=== PATIENT | female | born 1935 | race Caucasian/White ===

== ENCOUNTER → 2018-07-10 | Outpatient (CLI) | payer MEDICARE ==
--- NOTE | 2018-07-10 14:34 | XR ---
Lumbar spine HISTORY: Low back pain 3 views of the lumbar spine correlated prior lumbosacral spine 01/09/2014 There is no significant change. Lumbar vertebral bodies show stable height, alignment, bone mineraliz ation is reduced. Anterolisthesis grade 1 L4-5 again noted. There is loss of disc height at intervert ebral levels. Sclerosis present in the posterior elements. There is multilevel spondylosis. Apical sc arring vascular calcifications present in the aortoiliac distribution. Sclerosis present in the poste rior elements of the lower lumbar spine. IMPRESSION: Stable anterolisthesis L4-5. Degenerative disc disease, facet arthropathy. Osteopenia.
== END | disposition home or self-care (01) ==
LOC: RADXRMAIN 12:50
PROVIDERS: ATTEND Family Medicine
DX: M51.16 Intervertebral disc disorders with radiculopathy, lumbar region (principal); M43.16 Spondylolisthesis, lumbar region; M46.96 Unspecified inflammatory spondylopathy, lumbar region; M85.88 Other specified disorders of bone density and structure, other site
CPT/HCPCS: 72100

== ENCOUNTER → 2018-07-26 | Outpatient (CLI) | payer MEDICARE ==
--- NOTE | 2018-07-26 21:50 | MR ---
EXAMINATION TYPE: MR lumbar spine wo con DATE OF EXAM: 07/26/2018 COMPARISON: Plain films 07/10/2018 HISTORY: Radiculopathy CONTRAST: 0 mL intravenous Gadavist. TECHNIQUE: Multiplanar, multisequence images of the lumbar spine were acquired. FINDINGS: L5-S1: No significant disc bulge or disc herniation. No spinal canal stenosis. No foraminal stenosi s. . L4-L5: There is loss of disc height to this level. There is a grade 1 spondylolisthesis with L4 anter ior on L5. Facet hypertrophy is present. Marked ligamentum flavum laxity is present with posterior la teral thecal sac compression. This is contributing to spinal canal stenosis measuring 0.6 cm in AP di mension. There is moderate to severe left foraminal stenosis. Mild foraminal narrowing is present on the right. . L3-L4: Broad-based disc bulge is present which may has some subligamentous disc extension. Facet hype rtrophy and ligamentum flavum laxity is posterior lateral thecal sac compression. This is contributin g to spinal canal narrowing. L2-L3: No significant disc bulge or disc herniation. No spinal canal stenosis. No foraminal stenosi s. Mild facet hypertrophy is present with posterior lateral thecal sac contact.. L1-L2: Broad-based disc bulge is present with anterior thecal sac contact. Some subligamentous disc e xtension may be present. No spinal canal stenosis present. Mild right facet hypertrophy is present. T12-L1: Tiny central protrusion is present. Annular tear may be present with increased signal on T2-w eighted sequences within the disc space. No spinal canal stenosis cord contact or foraminal stenosis is present. T11-12: There is mild right paracentral disc bulge with anterior thecal sac contact. This has minimal anterior thecal sac compression. No cord contact or spinal canal stenosis is present. Neural foramen are patent. IMPRESSION: 1. Spinal canal stenosis L4-5 secondary to disc uncovering from a grade 1 spondylolisthesis and marke d ligamentum flavum laxity with facet hypertrophy. 2. Foraminal stenosis L3-4 secondary to disc bulging and marked ligamentum flavum laxity. 3. Moderate to severe left foraminal narrowing L4-5. 4. Broad-based disc bulging with subligamentous disc extension has mild sac compression L1-2. 5. Tiny annular tear and minimal central focal bulging T12-L1.
== END | disposition home or self-care (01) ==
LOC: RADMRIMAIN 07:02
PROVIDERS: ATTEND Midwife
DX: M99.73 Connective tissue and disc stenosis of intervertebral foramina of lumbar region (principal); M48.061 Spinal stenosis, lumbar region without neurogenic claudication; M51.26 Other intervertebral disc displacement, lumbar region; M43.16 Spondylolisthesis, lumbar region; M46.96 Unspecified inflammatory spondylopathy, lumbar region
CPT/HCPCS: 72148

== ENCOUNTER 2020-01-19 15:44 | Inpatient (IN) | payer MEDICARE ==
[2020-01-19] MEDS ORDERED: IPRATROPIUM-ALBUTEROL 3 ML NEB INHALATION STA (16:16)
[2020-01-19 16:46] LABS: Basophils % (A) 0 %; Eosinophils # (A) 0.1 k/uL (0-0.7); Eosinophils % (A) 1 %; HCT 45.7 % (34.0-46.0); HGB 15.2 gm/dL (11.4-16.0); Lymphocytes # (A) 1.4 k/uL (1.0-4.8); Lymphocytes % (A) 15 %; MCH 30.6 pg (25.0-35.0); MCHC 33.3 g/dL (31.0-37.0); MCV 91.7 fL (80.0-100.0); Mean Platelet Volume 7.6; Monocytes # (A) 0.4 k/uL (0-1.0); Monocytes % (A) 4 %; Neutrophils # (A) 7.6 k/uL (1.3-7.7); Neutrophils % (A) 78 %; Platelet Count 234 k/uL (150-450); RBC 4.98 m/uL (3.80-5.40); RDW 12.8 % (11.5-15.5); WBC 9.6 k/uL (3.8-10.6)
[2020-01-19 16:55] LABS: Albumin 4.3 g/dL (3.5-5.0); Magnesium 2.6 mg/dL (1.6-2.3); Potassium 3.8 mmol/L (3.5-5.1); Total Protein 7.8 g/dL (6.3-8.2)
[2020-01-19 17:06] LABS: Prothrombin Time 10.5 sec (9.0-12.0)
--- NOTE | 2020-01-19 17:15 | ED ---
SOB HPI - General Chief Complaint: Shortness of Breath Stated Complaint: Diff Breathing Time Seen by Provider: 01/19/20 15:50 Source: patient Mode of arrival: wheelchair Limitations: no limitations - History of Present Illness Initial Comments: The patient is an 84 old female with past medical history of asthma and PMR who presents to the emergency room from her primary care office. She saw Dr. Ralph in office last week for shortness of breath. States that she was prescribed some inhalers which she has been using however she continues to have shortness of breath. States it is worse with exertion and when she lays flat. Dr. Ralph did order an x-ray and she followed up with him today in office for results. Patient did not get to see the physician however when she arrived they referred her to the emergency room for further evaluation. She denies any chest pain. No previous history of cardiac disease or heart failure. Admits to some mild swelling in her right foot. Denies history of DVT or PE. She does take a "small water pill" however she is on sure of the name. 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 Denies any calf pain or swelling. No recent travel. Admits to a history of asthma however has not had any issues in the past 19 years. Admits to a mild cough after using her inhaler. Denies productive sputum. No hemoptysis. Denies ripping or tearing sensation to her back. She denies fevers, nausea, vomiting. There are no other alleviating, precipitating or modifying factors - Related Data Home Medications Medication Instructions Recorded Confirmed Albuterol Sulfate [Albuterol 2 puff PO RT-Q6H PRN 01/19/20 01/19/20 Sulfate Hfa] HYDROcodone/APAP 5-325MG [Ina 1 tab PO QID PRN 01/19/20 01/19/20 5-325] Hydrochlorothiazide 25 mg PO W/BRKFST 01/19/20 01/19/20 Thyroid,Pork [[place] Thyroid] 90 mg PO DAILY@0800 01/19/20 01/19/20 predniSONE 5 mg PO W/BRKFST 01/19/20 01/19/20 Allergies Allergy/AdvReac Type Severity Reaction Status Date / Time No Known Allergies Allergy Verified 01/19/20 18:23 Review of Systems ROS Statement: Those systems with pertinent positive or pertinent negative responses have been documented in the HPI. ROS Other: All systems not noted in ROS Statement are negative. Past Medical History Past Medical History: Asthma, Thyroid Disorder Additional Past Medical History / Comment(s): PMR History of Any Multi-Drug Resistant Organisms: None Reported Past Surgical History: Tonsillectomy Additional Past Surgical History / Comment(s): donated kidney Past Psychological History: No Psychological Hx Reported Smoking Status: Never smoker Past Alcohol Use History: None Reported Past Drug Use History: None Reported - Past Family History Father Family Medical History: Hypertension Mother Family Medical History: No Reported History General Exam Limitations: no limitations General appearance: alert, in no apparent distress ENT exam: Present: normal exam, mucous membranes moist Neck exam: Present: normal inspection. Absent: tenderness, meningismus, lymphadenopathy Respiratory exam: Present: rales, accessory muscle use, decreased breath sounds, other (tachypnia). Absent: rhonchi, stridor Cardiovascular Exam: Present: normal rhythm, tachycardia GI/Abdominal exam: Present: soft, normal bowel sounds. Absent: distended, tenderness, guarding, rebound, rigid Extremities exam: Present: other (very mild right pedal edema). Absent: calf tenderness Neurological exam: Present: alert, oriented X3, CN II-XII intact Psychiatric exam: Present: normal affect, normal mood Skin exam: Present: warm, dry, intact, normal color. Absent: rash Course Vital Signs 01/19/20 01/19/20 01/19/20 15:45 16:35 17:03 Temperature 98 F Pulse Rate 103 H 70 Respiratory 20 16 Rate Blood Pressure 129/82 O2 Sat by Pulse 93 L 97 Oximetry 01/19/20 01/19/20 01/19/20 17:13 18:26 20:45 Temperature Pulse Rate 72 102 H 97 Respiratory 16 20 Rate Blood Pressure 164/95 O2 Sat by Pulse 96 Oximetry 01/19/20 01/19/20 20:51 23:41 Temperature Pulse Rate 89 104 H Respiratory 20 Rate Blood Pressure 146/68 O2 Sat by Pulse 94 L Oximetry Medical Decision Making - Medical Decision Making Upon arrival the patient is placed in room 24. A thorough history and physical exam was performed. The patient was given a DuoNeb breathing treatment. I did review her x-ray from earlier today. I completed additional laboratory studies. Patient continues to remain tachycardic after breathing treatments. She is requiring supplemental oxygen at 2 L nasal cannula. Because of the did recommend hospital admission for which patient did agree. She was given 125 mg of Solu-Medrol and 1 g of magnesium. I will continue breathing treatments and steroids on the floor. The patient was also given Lasix for her pleural effusions and I ordered an echo. Blood cultures were obtained and the patient is initiated on antibiotics. Patient was in agreement with the treatment plan. She was transported to the floor in stable condition - Lab Data Result diagrams: 01/26/20 07:42 01/26/20 07:42 Lab Results 01/19/20 01/19/20 01/19/20 Range/Units 16:30 16:30 16:36 WBC 9.6 (3.8-10.6) k/uL RBC 4.98 (3.80-5.40) m/uL Hgb 15.2 (11.4-16.0) gm/dL Hct 45.7 (34.0-46.0) % MCV 91.7 (80.0-100.0) fL MCH 30.6 (25.0-35.0) pg MCHC 33.3 (31.0-37.0) g/dL RDW 12.8 (11.5-15.5) % Plt Count 234 (150-450) k/uL Neutrophils % 78 % Lymphocytes % 15 % Monocytes % 4 % Eosinophils % 1 % Basophils % 0 % Neutrophils # 7.6 (1.3-7.7) k/uL Lymphocytes # 1.4 (1.0-4.8) k/uL Monocytes # 0.4 (0-1.0) k/uL Eosinophils # 0.1 (0-0.7) k/uL Basophils # 0.0 (0-0.2) k/uL PT 10.5 (9.0-12.0) sec INR 1.0 (<1.2) APTT 21.3 L (22.0-30.0) sec Sodium 137 (137-145) mmol/L Potassium 3.8 (3.5-5.1) mmol/L Chloride 99 (98-107) mmol/L Carbon Dioxide 25 (22-30) mmol/L Anion Gap 13 mmol/L BUN 44 H (7-17) mg/dL Creatinine 1.13 H (0.52-1.04) mg/dL Est GFR (CKD-EPI)AfAm 52 (>60 ml/min/1.73 sqM) Est GFR (CKD-EPI)NonAf 45 (>60 ml/min/1.73 sqM) Glucose 118 H (74-99) mg/dL POC Glucose (mg/dL) (75-99) mg/dL POC Glu Single Fold Machine Operator ID Plasma Lactic Acid Palmer (0.7-2.0) mmol/L Calcium 10.0 (8.4-10.2) mg/dL Magnesium 2.6 H (1.6-2.3) mg/dL Total Bilirubin 1.0 (0.2-1.3) mg/dL AST 28 (14-36) U/L ALT 11 (4-34) U/L Alkaline Phosphatase 132 H (38-126) U/L Troponin I (0.000-0.034) ng/mL NT-Pro-B Natriuret Pep pg/mL Total Protein 7.8 (6.3-8.2) g/dL Albumin 4.3 (3.5-5.0) g/dL Procalcitonin (0.02-0.09) ng/mL Urine Color Urine Appearance (Clear) Urine pH (5.0-8.0) Ur Specific [place] (1.001-1.035) Urine Protein (Negative) Urine Glucose (UA) (Negative) Urine Ketones (Negative) Urine Blood (Negative) Urine Nitrite (Negative) Urine Bilirubin (Negative) Urine Urobilinogen (<2.0) mg/dL Ur Leukocyte Esterase (Negative) Urine RBC (0-5) /hpf Urine WBC (0-5) /hpf Ur Squamous Epith Cells (0-4) /hpf Urine Bacteria (None) /hpf Hyaline Casts (0-2) /lpf Coronavirus (PCR) (Not Detected) 01/19/20 01/19/20 01/19/20 Range/Units 16:36 16:36 16:36 WBC (3.8-10.6) k/uL RBC (3.80-5.40) m/uL Hgb (11.4-16.0) gm/dL Hct (34.0-46.0) % MCV (80.0-100.0) fL MCH (25.0-35.0) pg MCHC (31.0-37.0) g/dL RDW (11.5-15.5) % Plt Count (150-450) k/uL Neutrophils % % Lymphocytes % % Monocytes % % Eosinophils % % Basophils % % Neutrophils # (1.3-7.7) k/uL Lymphocytes # (1.0-4.8) k/uL Monocytes # (0-1.0) k/uL Eosinophils # (0-0.7) k/uL Basophils # (0-0.2) k/uL PT (9.0-12.0) sec INR (<1.2) APTT (22.0-30.0) sec Sodium (137-145) mmol/L Potassium (3.5-5.1) mmol/L Chloride (98-107) mmol/L Carbon Dioxide (22-30) mmol/L Anion Gap mmol/L BUN (7-17) mg/dL Creatinine (0.52-1.04) mg/dL Est GFR (CKD-EPI)AfAm (>60 ml/min/1.73 sqM) Est GFR (CKD-EPI)NonAf (>60 ml/min/1.73 sqM) Glucose (74-99) mg/dL POC Glucose (mg/dL) (75-99) mg/dL POC Glu Single Fold Machine Operator ID Plasma Lactic Acid Palmer 1.2 (0.7-2.0) mmol/L Calcium (8.4-10.2) mg/dL Magnesium (1.6-2.3) mg/dL Total Bilirubin (0.2-1.3) mg/dL AST (14-36) U/L ALT (4-34) U/L Alkaline Phosphatase (38-126) U/L Troponin I <0.012 (0.000-0.034) ng/mL NT-Pro-B Natriuret Pep 378 pg/mL Total Protein (6.3-8.2) g/dL Albumin (3.5-5.0) g/dL Procalcitonin (0.02-0.09) ng/mL Urine Color Urine Appearance (Clear) Urine pH (5.0-8.0) Ur Specific [place] (1.001-1.035) Urine Protein (Negative) Urine Glucose (UA) (Negative) Urine Ketones (Negative) Urine Blood (Negative) Urine Nitrite (Negative) Urine Bilirubin (Negative) Urine Urobilinogen (<2.0) mg/dL Ur Leukocyte Esterase (Negative) Urine RBC (0-5) /hpf Urine WBC (0-5) /hpf Ur Squamous Epith Cells (0-4) /hpf Urine Bacteria (None) /hpf Hyaline Casts (0-2) /lpf Coronavirus (PCR) (Not Detected) 01/19/20 01/20/20 01/20/20 Range/Units 19:13 00:05 05:39 WBC 5.3 (3.8-10.6) k/uL RBC 4.73 (3.80-5.40) m/uL Hgb 13.7 (11.4-16.0) gm/dL Hct 43.8 (34.0-46.0) % MCV 92.6 (80.0-100.0) fL MCH 29.0 (25.0-35.0) pg MCHC 31.3 (31.0-37.0) g/dL RDW 13.0 (11.5-15.5) % Plt Count 235 (150-450) k/uL Neutrophils % 85 % Lymphocytes % 12 % Monocytes % 2 % Eosinophils % 0 % Basophils % 0 % Neutrophils # 4.5 (1.3-7.7) k/uL Lymphocytes # 0.7 L (1.0-4.8) k/uL Monocytes # 0.1 (0-1.0) k/uL Eosinophils # 0.0 (0-0.7) k/uL Basophils # 0.0 (0-0.2) k/uL PT (9.0-12.0) sec INR (<1.2) APTT (22.0-30.0) sec Sodium (137-145) mmol/L Potassium (3.5-5.1) mmol/L Chloride (98-107) mmol/L Carbon Dioxide (22-30) mmol/L Anion Gap mmol/L BUN (7-17) mg/dL Creatinine (0.52-1.04) mg/dL Est GFR (CKD-EPI)AfAm (>60 ml/min/1.73 sqM) Est GFR (CKD-EPI)NonAf (>60 ml/min/1.73 sqM) Glucose (74-99) mg/dL POC Glucose (mg/dL) (75-99) mg/dL POC Glu Single Fold Machine Operator ID Plasma Lactic Acid Palmer (0.7-2.0) mmol/L Calcium (8.4-10.2) mg/dL Magnesium (1.6-2.3) mg/dL Total Bilirubin (0.2-1.3) mg/dL AST (14-36) U/L ALT (4-34) U/L Alkaline Phosphatase (38-126) U/L Troponin I (0.000-0.034) ng/mL NT-Pro-B Natriuret Pep pg/mL Total Protein (6.3-8.2) g/dL Albumin (3.5-5.0) g/dL Procalcitonin (0.02-0.09) ng/mL Urine Color Light Yellow Urine Appearance Clear (Clear) Urine pH 5.0 (5.0-8.0) Ur Specific [place] 1.006 (1.001-1.035) Urine Protein Negative (Negative) Urine Glucose (UA) Negative (Negative) Urine Ketones Negative (Negative) Urine Blood Small H (Negative) Urine Nitrite Negative (Negative) Urine Bilirubin Negative (Negative) Urine Urobilinogen <2.0 (<2.0) mg/dL Ur Leukocyte Esterase Small H (Negative) Urine RBC 5 (0-5) /hpf Urine WBC 9 H (0-5) /hpf Ur Squamous Epith Cells <1 (0-4) /hpf Urine Bacteria Rare H (None) /hpf Hyaline Casts 12 H (0-2) /lpf Coronavirus (PCR) Not Detected (Not Detected) 01/20/20 01/20/20 01/20/20 Range/Units 05:39 05:39 06:08 WBC (3.8-10.6) k/uL RBC (3.80-5.40) m/uL Hgb (11.4-16.0) gm/dL Hct (34.0-46.0) % MCV (80.0-100.0) fL MCH (25.0-35.0) pg MCHC (31.0-37.0) g/dL RDW (11.5-15.5) % Plt Count (150-450) k/uL Neutrophils % % Lymphocytes % % Monocytes % % Eosinophils % % Basophils % % Neutrophils # (1.3-7.7) k/uL Lymphocytes # (1.0-4.8) k/uL Monocytes # (0-1.0) k/uL Eosinophils # (0-0.7) k/uL Basophils # (0-0.2) k/uL PT (9.0-12.0) sec INR (<1.2) APTT (22.0-30.0) sec Sodium 140 (137-145) mmol/L Potassium 3.0 L (3.5-5.1) mmol/L Chloride 97 L (98-107) mmol/L Carbon Dioxide 31 H (22-30) mmol/L Anion Gap 12 mmol/L BUN 43 H (7-17) mg/dL Creatinine 1.29 H (0.52-1.04) mg/dL Est GFR (CKD-EPI)AfAm 44 (>60 ml/min/1.73 sqM) Est GFR (CKD-EPI)NonAf 38 (>60 ml/min/1.73 sqM) Glucose 176 H (74-99) mg/dL POC Glucose (mg/dL) 179 H (75-99) mg/dL POC Glu Single Fold Machine Operator ID Stacy Clark Plasma Lactic Acid Palmer (0.7-2.0) mmol/L Calcium 9.6 (8.4-10.2) mg/dL Magnesium (1.6-2.3) mg/dL Total Bilirubin (0.2-1.3) mg/dL AST (14-36) U/L ALT (4-34) U/L Alkaline Phosphatase (38-126) U/L Troponin I (0.000-0.034) ng/mL NT-Pro-B Natriuret Pep pg/mL Total Protein (6.3-8.2) g/dL Albumin (3.5-5.0) g/dL Procalcitonin 0.18 H (0.02-0.09) ng/mL Urine Color Urine Appearance (Clear) Urine pH (5.0-8.0) Ur Specific [place] (1.001-1.035) Urine Protein (Negative) Urine Glucose (UA) (Negative) Urine Ketones (Negative) Urine Blood (Negative) Urine Nitrite (Negative) Urine Bilirubin (Negative) Urine Urobilinogen (<2.0) mg/dL Ur Leukocyte Esterase (Negative) Urine RBC (0-5) /hpf Urine WBC (0-5) /hpf Ur Squamous Epith Cells (0-4) /hpf Urine Bacteria (None) /hpf Hyaline Casts (0-2) /lpf Coronavirus (PCR) (Not Detected) 01/20/20 01/20/20 01/20/20 Range/Units 11:34 16:56 19:58 WBC (3.8-10.6) k/uL RBC (3.80-5.40) m/uL Hgb (11.4-16.0) gm/dL Hct (34.0-46.0) % MCV (80.0-100.0) fL MCH (25.0-35.0) pg MCHC (31.0-37.0) g/dL RDW (11.5-15.5) % Plt Count (150-450) k/uL Neutrophils % % Lymphocytes % % Monocytes % % Eosinophils % % Basophils % % Neutrophils # (1.3-7.7) k/uL Lymphocytes # (1.0-4.8) k/uL Monocytes # (0-1.0) k/uL Eosinophils # (0-0.7) k/uL Basophils # (0-0.2) k/uL PT (9.0-12.0) sec INR (<1.2) APTT (22.0-30.0) sec Sodium (137-145) mmol/L Potassium (3.5-5.1) mmol/L Chloride (98-107) mmol/L Carbon Dioxide (22-30) mmol/L Anion Gap mmol/L BUN (7-17) mg/dL Creatinine (0.52-1.04) mg/dL Est GFR (CKD-EPI)AfAm (>60 ml/min/1.73 sqM) Est GFR (CKD-EPI)NonAf (>60 ml/min/1.73 sqM) Glucose (74-99) mg/dL POC Glucose (mg/dL) 183 H 131 H 251 H (75-99) mg/dL POC Glu Single Fold Machine Operator Nel Coon Rachel McNeice, [place] Plasma Lactic Acid Palmer (0.7-2.0) mmol/L Calcium (8.4-10.2) mg/dL Magnesium (1.6-2.3) mg/dL Total Bilirubin (0.2-1.3) mg/dL AST (14-36) U/L ALT (4-34) U/L Alkaline Phosphatase (38-126) U/L Troponin I (0.000-0.034) ng/mL NT-Pro-B Natriuret Pep pg/mL Total Protein (6.3-8.2) g/dL Albumin (3.5-5.0) g/dL Procalcitonin (0.02-0.09) ng/mL Urine Color Urine Appearance (Clear) Urine pH (5.0-8.0) Ur Specific [place] (1.001-1.035) Urine Protein (Negative) Urine Glucose (UA) (Negative) Urine Ketones (Negative) Urine Blood (Negative) Urine Nitrite (Negative) Urine Bilirubin (Negative) Urine Urobilinogen (<2.0) mg/dL Ur Leukocyte Esterase (Negative) Urine RBC (0-5) /hpf Urine WBC (0-5) /hpf Ur Squamous Epith Cells (0-4) /hpf Urine Bacteria (None) /hpf Hyaline Casts (0-2) /lpf Coronavirus (PCR) (Not Detected) 01/21/20 01/21/20 01/21/20 Range/Units 05:54 05:54 06:14 WBC 16.5 H (3.8-10.6) k/uL RBC 4.26 (3.80-5.40) m/uL Hgb 13.7 (11.4-16.0) gm/dL Hct 41.0 (34.0-46.0) % MCV 96.2 (80.0-100.0) fL MCH 32.3 (25.0-35.0) pg MCHC 33.5 (31.0-37.0) g/dL RDW 13.0 (11.5-15.5) % Plt Count 240 (150-450) k/uL Neutrophils % 88 % Lymphocytes % 7 % Monocytes % 4 % Eosinophils % 0 % Basophils % 1 % Neutrophils # 14.4 H (1.3-7.7) k/uL Lymphocytes # 1.2 (1.0-4.8) k/uL Monocytes # 0.7 (0-1.0) k/uL Eosinophils # 0.1 (0-0.7) k/uL Basophils # 0.1 (0-0.2) k/uL PT (9.0-12.0) sec INR (<1.2) APTT (22.0-30.0) sec Sodium 139 (137-145) mmol/L Potassium 3.4 L (3.5-5.1) mmol/L Chloride 100 (98-107) mmol/L Carbon Dioxide 27 (22-30) mmol/L Anion Gap 12 mmol/L BUN 64 H (7-17) mg/dL Creatinine 1.32 H (0.52-1.04) mg/dL Est GFR (CKD-EPI)AfAm 43 (>60 ml/min/1.73 sqM) Est GFR (CKD-EPI)NonAf 37 (>60 ml/min/1.73 sqM) Glucose 114 H (74-99) mg/dL POC Glucose (mg/dL) 127 H (75-99) mg/dL POC Glu Single Fold Machine Operator ID Shruthi Ramirez Plasma Lactic Acid Palmer (0.7-2.0) mmol/L Calcium 9.5 (8.4-10.2) mg/dL Magnesium 2.2 (1.6-2.3) mg/dL Total Bilirubin (0.2-1.3) mg/dL AST (14-36) U/L ALT (4-34) U/L Alkaline Phosphatase (38-126) U/L Troponin I (0.000-0.034) ng/mL NT-Pro-B Natriuret Pep pg/mL Total Protein (6.3-8.2) g/dL Albumin (3.5-5.0) g/dL Procalcitonin (0.02-0.09) ng/mL Urine Color Urine Appearance (Clear) Urine pH (5.0-8.0) Ur Specific [place] (1.001-1.035) Urine Protein (Negative) Urine Glucose (UA) (Negative) Urine Ketones (Negative) Urine Blood (Negative) Urine Nitrite (Negative) Urine Bilirubin (Negative) Urine Urobilinogen (<2.0) mg/dL Ur Leukocyte Esterase (Negative) Urine RBC (0-5) /hpf Urine WBC (0-5) /hpf Ur Squamous Epith Cells (0-4) /hpf Urine Bacteria (None) /hpf Hyaline Casts (0-2) /lpf Coronavirus (PCR) (Not Detected) 01/21/20 Range/Units 11:34 WBC (3.8-10.6) k/uL RBC (3.80-5.40) m/uL Hgb (11.4-16.0) gm/dL Hct (34.0-46.0) % MCV (80.0-100.0) fL MCH (25.0-35.0) pg MCHC (31.0-37.0) g/dL RDW (11.5-15.5) % Plt Count (150-450) k/uL Neutrophils % % Lymphocytes % % Monocytes % % Eosinophils % % Basophils % % Neutrophils # (1.3-7.7) k/uL Lymphocytes # (1.0-4.8) k/uL Monocytes # (0-1.0) k/uL Eosinophils # (0-0.7) k/uL Basophils # (0-0.2) k/uL PT (9.0-12.0) sec INR (<1.2) APTT (22.0-30.0) sec Sodium (137-145) mmol/L Potassium (3.5-5.1) mmol/L Chloride (98-107) mmol/L Carbon Dioxide (22-30) mmol/L Anion Gap mmol/L BUN (7-17) mg/dL Creatinine (0.52-1.04) mg/dL Est GFR (CKD-EPI)AfAm (>60 ml/min/1.73 sqM) Est GFR (CKD-EPI)NonAf (>60 ml/min/1.73 sqM) Glucose (74-99) mg/dL POC Glucose (mg/dL) 154 H (75-99) mg/dL POC Glu Single Fold Machine Operator ID Jyoti Ferguson Plasma Lactic Acid Palmer (0.7-2.0) mmol/L Calcium (8.4-10.2) mg/dL Magnesium (1.6-2.3) mg/dL Total Bilirubin (0.2-1.3) mg/dL AST (14-36) U/L ALT (4-34) U/L Alkaline Phosphatase (38-126) U/L Troponin I (0.000-0.034) ng/mL NT-Pro-B Natriuret Pep pg/mL Total Protein (6.3-8.2) g/dL Albumin (3.5-5.0) g/dL Procalcitonin (0.02-0.09) ng/mL Urine Color Urine Appearance (Clear) Urine pH (5.0-8.0) Ur Specific [place] (1.001-1.035) Urine Protein (Negative) Urine Glucose (UA) (Negative) Urine Ketones (Negative) Urine Blood (Negative) Urine Nitrite (Negative) Urine Bilirubin (Negative) Urine Urobilinogen (<2.0) mg/dL Ur Leukocyte Esterase (Negative) Urine RBC (0-5) /hpf Urine WBC (0-5) /hpf Ur Squamous Epith Cells (0-4) /hpf Urine Bacteria (None) /hpf Hyaline Casts (0-2) /lpf Coronavirus (PCR) (Not Detected) - EKG Data EKG Comments: EKG demonstrates a sinus tachycardia with a ventricular rate of 101. ND interval 192. QRS 88. QTC of 453. No acute ST segment elevations or depressions concerning for ischemic changes Disposition Clinical Impression: Acute respiratory insufficiency, Asthma exacerbation, Pleural effusion, Single kidney Disposition: ADMITTED IP TO THIS HOSP Condition: Stable Is patient prescribed a controlled substance at d/c from ED?: No Decision to Admit Reason: Admit from EC Decision Date: 01/19/20 Decision Time: 17:47
[2020-01-19 17:16] LABS: Partial Thromboplastin Time 21.3 sec (22.0-30.0)
[2020-01-19] MEDS ORDERED: MAGNESIUM SULFATE-D5W PMX 1 GM in DEXTROSE/WATER 1 100ML.BAG IVPB ONE (17:44)
[2020-01-19] MEDS ORDERED: methylPREDNISolone SOD SUCCI 125 MG/2 ML VIAL IV STA (17:45)
[2020-01-19] MEDS ORDERED: FUROSEMIDE 10 MG/ML 4 ML VIAL IV STA (17:45)
[2020-01-19] MEDS ORDERED: cefTRIAXone IN SWFI 1,000 MG/10 ML SYRINGE IVP STA (17:45)
[2020-01-19] MEDS ORDERED: AZITHROMYCIN 500 MG in SODIUM CHLORIDE 0.9% 250 ML IVPB STA (17:46)
[2020-01-19] MEDS ORDERED: NALOXONE 0.4 MG/ML 1 ML VIAL IV PRN (17:47)
[2020-01-19] MEDS ORDERED: IPRATROPIUM-ALBUTEROL 3 ML NEB INHALATION PRN (18:55)
[2020-01-19] MEDS ORDERED: IPRATROPIUM-ALBUTEROL 3 ML NEB INHALATION SCH (20:00)
[2020-01-19] MEDS: IPRATROPIUM-ALBUTEROL 3 ML NEB INHALATION SCH (20:45)
[2020-01-19] MEDS ORDERED: ACETAMINOPHEN TAB 500 MG TAB PO PRN (22:49)
[2020-01-20 00:29] LABS: Appearance,Urine Clear (Clear); Bacteria,Urine Rare /hpf; Bilirubin,Urine Negative (Negative); Blood,Urine Small (Negative); Color,Urine Light Yellow; Glucose,Urine (UA) Negative (Negative); Hyaline Casts,Urine 12 /lpf (0-2); Ketones,Urine Negative (Negative); Leukocyte Esterase,Urine Small (Negative); Nitrite,Urine Negative (Negative); Protein,Urine Negative (Negative); RBC,Urine 5 /hpf (0-5); Specific Gravity,Urine 1.006 (1.001-1.035); Squamous Epithelial Cell,Urine <1 /hpf (0-4); Urobilinogen,Urine <2.0 mg/dL (<2.0); WBC,Urine 9 /hpf (0-5)
[2020-01-20] MEDS: FUROSEMIDE 10 MG/ML 4 ML VIAL IV SCH ×2 (00:43→08:37)
--- NOTE | 2020-01-20 01:01 | HP ---
HISTORY AND PHYSICAL DATE OF SERVICE: 01/19/2020 CHIEF COMPLAINT: Shortness of breath. HISTORY OF PRESENT ILLNESS: This 84-year-old woman with a past medical history of multiple medical problems including asthma, history of hypothyroidism, history of polymyalgia rheumatica, being followed by Dr. Tio Ralph in the outpatient setting was not feeling well for the past 5 days. Patient with increased shortness of breath. No not much cough or sputum is noted. The patient has minimal swelling of the legs and abdominal distention. Patient was seen by Dr. Ralph's office last week and chest x-ray was recommended and chest x- ray showed significant CHF and the patient was directed to [facility] and admitted for further evaluation and treatment. The patient does not have any history of any DVTs, previous history of PE or CHF. The patient was taking a small water pill according to her. There is no history of fever or rigors. No history of headache, loss of consciousness or seizure. No history of any recent travel or contact with sick individual. PAST MEDICAL HISTORY: Asthma, thyroid disorder, polymyalgia rheumatica and kidney donation. MEDICATIONS: Medications prior to admission include: 1. Prednisone 5 mg with breakfast. 2. [place] 5 mg q.i.d. p.r.n. 3. Albuterol q.6 p.r.n. 4. [place] Thyroid 90 mg p.o. daily. 5. Hydrochlorothiazide 25 mg with breakfast. ALLERGIES: None. FAMILY HISTORY: No history of heart disease or strokes in the family. SOCIAL HISTORY: No history of smoking. No history of alcohol intake. REVIEW OF SYSTEMS: ENT: Diminished hearing and diminished vision. CARDIOVASCULAR SYSTEM; No angina, palpitations. RESPIRATORY SYSTEM: As mentioned earlier. GI: No nausea. : No dysuria. NERVOUS SYSTEM: No numbness or weakness. ALLERGY/IMMUNOLOGY: Asthma. MUSCULOSKELETAL: As mentioned earlier. HEMATOLOGY: No history of anemia. ENDOCRINE: Hypothyroidism. CONSTITUTIONAL: As mentioned earlier. DERMATOLOGY: Negative. RHEUMATOLOGY: Negative. PSYCHIATRY: As mentioned earlier. PHYSICAL EXAMINATION: Patient is alert and oriented x3. Pulse 102, blood pressure 164/95, respiration 20, temperature is normal, pulse ox 96% on 2 L. HEENT: Conjunctivae normal. Oral mucosa moist. NECK: No jugular venous distention. No carotid bruit. No lymph node enlargement. in the root of the neck. CARDIOVASCULAR: S1, S2 muffled. No S3, no S4. RESPIRATORY: Breath sounds diminished at the bases. A few scattered rhonchi and crackles. ABDOMEN: Soft, nontender. LEGS: No edema, no swelling. NERVOUS SYSTEM: Higher function as mentioned earlier. Moves all 4 limbs. No focal motor or sensory deficit. LYMPHATICS: No lymphadenopathy of the neck, axillae or groin. SKIN: No ulcer, rash or bleeding. JOINTS: No active deforming arthropathy. LABS: CBC within normal limits. Sodium 137, potassium 3.8 creatinine is 1.13 and magnesium is 2.6. ASSESSMENT: 1. Congestive heart failure acute exacerbation, ejection fraction unknown. 2. Increased creatinine with possibly mild acute renal failure, acute tubular necrosis. 3. History of asthma. 4. History of hypothyroidism. 5. History of polymyalgia rheumatica. 6. History of tonsillectomy. 7. History of kidney donation. 8. FULL CODE. RECOMMENDATIONS AND DISCUSSION: This 84-year-old woman who presented with multiple complex medical issues, we will monitor the patient closely, continue the current medications and continue symptomatic treatment. Will will initiate IV diuretics, limit the fluid intake. Cardiology consultation. Two-D echo with Doppler. Otherwise, overall prognosis guarded because of multiple complex medical issues. Further recommendations to follow. A copy of dictation forwarded to Dr. Tio Ralph who is the primary physician. MMODL / IJN: [id number] / MTDD
[2020-01-20 06:09] LABS: Glucose,Whole Blood 179 mg/dL (75-99)
[2020-01-20 06:50] LABS: Basophils % (A) 0 %; Eosinophils % (A) 0 %; HCT 43.8 % (34.0-46.0); HGB 13.7 gm/dL (11.4-16.0); Lymphocytes # (A) 0.7 k/uL (1.0-4.8); Lymphocytes % (A) 12 %; MCHC 31.3 g/dL (31.0-37.0); MCV 92.6 fL (80.0-100.0); Mean Platelet Volume 7.6; Monocytes # (A) 0.1 k/uL (0-1.0); Monocytes % (A) 2 %; Neutrophils # (A) 4.5 k/uL (1.3-7.7); Neutrophils % (A) 85 %; Platelet Count 235 k/uL (150-450); RBC 4.73 m/uL (3.80-5.40); WBC 5.3 k/uL (3.8-10.6)
[2020-01-20] MEDS: PANTOPRAZOLE 40 MG TABLET PO SCH (07:05)
[2020-01-20] MEDS: INSULIN ASPART (NovoLOG) 100 UNIT/ML VIAL SQ SCH ×4 (07:06→20:44)
[2020-01-20 07:22] LABS: Calcium 9.6 mg/dL (8.4-10.2)
[2020-01-20] MEDS ORDERED: FUROSEMIDE 10 MG/ML 4 ML VIAL IV SCH (08:00)
[2020-01-20] MEDS: HEPARIN SODIUM,PORCINE 5,000 UNIT/ML 1 ML VIAL SQ SCH ×2 (08:37→20:45)
[2020-01-20] MEDS: methylPREDNISolone SOD SUCCI 40 MG/ML 1 ML VIAL IV SCH ×3 (08:37→23:25)
[2020-01-20] MEDS: THYROID, PORK 30 MG TAB PO SCH (08:38)
[2020-01-20] MEDS: IPRATROPIUM-ALBUTEROL 3 ML NEB INHALATION SCH ×4 (09:45→21:09)
--- NOTE | 2020-01-20 11:00 | ECHOF ---
Referral Reason:new onset hf MEASUREMENTS -------- HEIGHT: 160.0 cm WEIGHT: 55.8 kg BP: 147/84 RVIDd: 2.9 cm (< 3.3) IVSd: 1.1 cm (0.6 - 1.1) LVIDd: 3.0 cm (3.9 - 5.3) LVPWd: 1.0 cm (0.6 - 1.1) IVSs: 1.5 cm LVIDs: 2.1 cm LVPWs: 1.0 cm LAESV Index (A-L): 13.64 ml/m Ao Diam: 2.2 cm (2.0 - 3.7) AV Cusp: 1.8 cm (1.5 - 2.6) MV E Stephen: 0.74 m/s MV DecT: 278 ms MV A Stephen: 1.30 m/s MV E/A Ratio: 0.57 RAP: 5.00 mmHg RVSP: 45.31 mmHg FINDINGS -------- Resting tachycardia (HR>100bpm). This was a technically adequate study. The left ventricular size is normal. Left ventricular wall thickness is normal. Overall left vent ricular systolic function is normal with, an EF between 55 - 60 %. The diastolic filling pattern is normal for the age of the patient 10.67. The right ventricle is normal in size. Normal LA size by volume 22+/-6 ml/m2. The right atrial size is normal. Interatrial and interventricular septum intact. There is mild aortic valve sclerosis. There is no evidence of aortic regurgitation. There is no e vidence of aortic stenosis. Mild mitral annular calcification present. There is trace to mild mitral regurgitation. [id number] tricuspid regurgitation present. There is mild to moderate pulmonary hypertension. The right ventricular systolic pressure, as measured by Doppler, is 45.31mmHg. Trace/mild (physiologic) pulmonic regurgitation. The aortic root size is normal. Normal inferior vena cava with normal inspiratory collapse consistent with estimated right atrial pre ssure of 5 mmHg. There is a small, generalized pericardial effusion present. CONCLUSIONS -------- 1. Resting tachycardia (HR>100bpm). 2. This was a technically adequate study. 3. The left ventricular size is normal. 4. Left ventricular wall thickness is normal. 5. Overall left ventricular systolic function is normal with, an EF between 55 - 60 %. 6. The diastolic filling pattern is normal for the age of the patient 10.67 7. The right ventricle is normal in size. 8. Normal LA size by volume 22+/-6 ml/m2. 9. The right atrial size is normal. 10. Interatrial and interventricular septum intact. 11. There is mild aortic valve sclerosis. 12. There is no evidence of aortic regurgitation. 13. There is no evidence of aortic stenosis. 14. Mild mitral annular calcification present. 15. There is trace to mild mitral regurgitation. 16. [id number] tricuspid regurgitation present. 17. There is mild to moderate pulmonary hypertension. 18. The right ventricular systolic pressure, as measured by Doppler, is 45.31mmHg. 19. Trace/mild (physiologic) pulmonic regurgitation. 20. The aortic root size is normal. 21. Normal inferior vena cava with normal inspiratory collapse consistent with estimated right atrial pressure of 5 mmHg. 22. There is a small, generalized pericardial effusion present. COMPANION CAREGIVER: Zoila Joshi RDCS
[2020-01-20] MEDS ORDERED: Potassium Replacement Protocol 1 EACH MISC MISCELLANE PRN (11:35)
[2020-01-20 11:42] LABS: Glucose,Whole Blood 183 mg/dL (75-99)
[2020-01-20] MEDS: POTASSIUM CHLORIDE ER 20 MEQ TAB.ER PO SCH ×2 (11:55→13:11)
[2020-01-20] MEDS: METOPROLOL TARTRATE 25 MG TAB PO SCH ×2 (11:55→20:45)
--- NOTE | 2020-01-20 13:09 | XR ---
EXAMINATION TYPE: XR chest 2V DATE OF EXAM: 01/20/2020 COMPARISON: 01/19/2020 HISTORY: Shortness of breath FINDINGS: Noted is pulmonary venous congestion with scattered infiltrates. There is also cardiomegaly and small effusions. IMPRESSION: Findings compatible with stable congestive failure. Infiltrates of other etiology are not excluded. Clinical correlation and progress studies are recommended.
--- NOTE | 2020-01-20 13:14 | P.CNPUL ---
History of Present Illness Consult date: 01/20/20 Requesting physician: Ganesh Osborn Reason for consult: dyspnea Chief complaint: Shortness of breath, abnormal chest x-ray History of present illness: This is a very pleasant 84-year-old female patient who follows with Dr. Ralph as her primary care provider. She has a history of mild intermittent chronic bronchial asthma, hypothyroidism and polymyalgia rheumatica. She is a lifelong nonsmoker. 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 She had been having episodes of shortness of breath over the past 2 weeks. She was having trouble lying flat. She was having increased shortness of breath with minimal exertion. She had been seen and evaluated by her PCP who did order a chest x-ray. Based on the findings she was referred to the emergency room. Asked x-ray revealed diffuse interstitial pattern with bilateral consolidation and small effusion. She was hypoxic in the low 90s on 2 L/m per nasal cannula. White count 9.6. Creatinine 1.13. ProBNP 378. Troponin negative. She is seen today in consultation on the selective care unit. She is currently awake and alert in no acute distress. Maintaining O2 saturations in the low 90s on 3 L/m per nasal cannula.Echocardiogram reveals preserved preserved left ventricular systolic function with ejection fraction 55-60%. Mild to moderate pulmonary hypertension. No significant valvular disorder. He is currently on bronchodilators, IV Solu-Medrol, oral diuretics. His chest x-ray shows improvement in the fluid volume overload. There is still a small to moderate left pleural effusion and a tiny right pleural effusion. She is breathing easier today compared to yesterday. CoVID 19 screen pending. Review of Systems REVIEW OF SYSTEMS: CONSTITUTIONAL: Denies any recent significant weight loss or weight gain. EYES: Denies change in vision. EARS, NOSE, MOUTH, THROAT: Denies headaches, denies sore throat. CARDIOVASCULAR: Denies chest pain, palpitations or syncopal episodes. RESPIRATORY: Positive for shortness of breath, cough, congestion no hemoptysis. GASTROINTESTINAL: Denies change in appetite, denies abdominal pain GENITOURINARY: Denies hematuria, denies infections. MUSKULOSKELETAL: Denies pain, denies swelling. INTEGUMENTARY: Denies rash, denies eczema. NEUROLOGICAL: Denies recent memory loss, no recent seizure activity. PSYCHIATRIC: Denies anxiety, denies depression. HEMATOLOGIC/LYMPHATIC: Denies anemia, denies enlarged lymph nodes. Past Medical History Past Medical History: Asthma, Thyroid Disorder Additional Past Medical History / Comment(s): PMR History of Any Multi-Drug Resistant Organisms: None Reported Past Surgical History: Tonsillectomy Additional Past Surgical History / Comment(s): donated kidney Past Anesthesia/Blood Transfusion Reactions: No Reported Reaction Past Psychological History: No Psychological Hx Reported Smoking Status: Never smoker Past Alcohol Use History: None Reported Past Drug Use History: None Reported - Past Family History Father Family Medical History: Hypertension Mother Family Medical History: No Reported History Medications and Allergies Home Medications Medication Instructions Recorded Confirmed Type Albuterol Sulfate [Albuterol 2 puff PO RT-Q6H PRN 01/19/20 01/19/20 History Sulfate Hfa] HYDROcodone/APAP 5-325MG [[place] 1 tab PO QID PRN 01/19/20 01/19/20 History 5-325] Hydrochlorothiazide 25 mg PO W/BRKFST 01/19/20 01/19/20 History Thyroid,Pork [[place] Thyroid] 90 mg PO DAILY@0800 01/19/20 01/19/20 History predniSONE 5 mg PO W/BRKFST 01/19/20 01/19/20 History Allergies Allergy/AdvReac Type Severity Reaction Status Date / Time No Known Allergies Allergy Verified 01/19/20 18:23 Physical Exam Vitals: Vital Signs Temp Pulse Pulse Resp BP BP Pulse Ox 01/20/20 11:29 98.0 F 114 H 18 180/97 94 L 01/20/20 09:56 92 01/20/20 09:45 92 01/20/20 07:59 98.1 F 102 H 18 137/68 100 01/20/20 04:33 97.9 F 100 18 147/84 93 L 01/20/20 00:00 97.8 F 111 H 18 138/97 96 01/19/20 23:41 104 H 20 146/68 94 L 01/19/20 20:51 89 01/19/20 20:45 97 01/19/20 18:26 102 H 20 164/95 96 01/19/20 17:13 72 16 01/19/20 17:03 70 16 01/19/20 16:35 97 01/19/20 15:45 98 F 103 H 20 129/82 93 L Intake and Output 01/19/20 01/20/20 01/20/20 22:59 06:59 14:59 Intake Total 240 Output Total 975 400 Balance -975 -160 Intake: Oral 240 Output: Urine 975 400 Other: Voiding Method Bedside Commode # Voids 1 Weight 57.153 kg 55.9 kg GENERAL EXAM: Alert, active, very pleasant 84-year-old female patient, on 3 L nasal cannula, comfortable in no apparent distress. HEAD: Normocephalic. EYES: Normal reaction of pupils, equal size. NOSE: Clear with pink turbinates. THROAT: No erythema or exudates. NECK: No masses, no JVD. CHEST: No chest wall deformity. LUNGS: Equal air entry with basilar crackles left greater than right. CVS: S1 and S2 normal with no audible murmur, regular rhythm. ABDOMEN: No hepatosplenomegaly, normal bowel sounds, no guarding or rigidity. SPINE: No scoliosis or deformity SKIN: No rashes CENTRAL NERVOUS SYSTEM: No focal deficits, tone is normal in all 4 extremities. EXTREMITIES: There is no peripheral edema. No clubbing, no cyanosis. Peripheral pulses are intact. Results - Laboratory Findings CBC and BMP: 01/20/20 05:39 01/20/20 05:39 PT/INR, D-dimer PT 10.5 sec (9.0-12.0) 01/19/20 16:30 INR 1.0 (<1.2) 01/19/20 16:30 Abnormal lab findings: Abnormal Labs 01/19/20 01/19/20 01/20/20 16:30 16:36 00:05 Lymphocytes # APTT 21.3 L Potassium Chloride Carbon Dioxide BUN 44 H Creatinine 1.13 H Glucose 118 H POC Glucose (mg/dL) Magnesium 2.6 H Alkaline Phosphatase 132 H Urine Blood Small H Ur Leukocyte Esterase Small H Urine WBC 9 H Urine Bacteria Rare H Hyaline Casts 12 H 01/20/20 01/20/20 01/20/20 05:39 05:39 06:08 Lymphocytes # 0.7 L APTT Potassium 3.0 L Chloride 97 L Carbon Dioxide 31 H BUN 43 H Creatinine 1.29 H Glucose 176 H POC Glucose (mg/dL) 179 H Magnesium Alkaline Phosphatase Urine Blood Ur Leukocyte Esterase Urine WBC Urine Bacteria Hyaline Casts 06/24/20 11:34 Lymphocytes # APTT Potassium Chloride Carbon Dioxide BUN Creatinine Glucose POC Glucose (mg/dL) 183 H Magnesium Alkaline Phosphatase Urine Blood Ur Leukocyte Esterase Urine WBC Urine Bacteria Hyaline Casts - Diagnostic Findings Chest x-ray: image reviewed Assessment and Plan Assessment: 1 Acute hypoxic respiratory failure secondary to fluid volume overload and basilar pleural effusions left greater than right possibly secondary to diastolic congestive heart failure. Preserved left ventricular systolic function. 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 Kwon Repeat chest x-ray PA and lateral shows improvement Continue gentle diuretics Continue to monitor renal function Procalcitonin level pending Continue bronchodilators and IV Solu-Medrol Titrate down the FiO2 as tolerated CoVID 19 screen pending We'll continue to follow and make further recommendations based on her clinical status I, the cosigning physician, performed a history & physical examination of the patient. Lungs sounds with crackles in the posterior bases, left greater than right. Maintaining good O2 saturations in the 90s on 3 L/m per nasal cannula. I discussed the assessment and plan of care with my nurse practitioner, Bernie Wing. I attest to the above consultation as dictated by her. Time with Patient: Greater than 30
[2020-01-20] MEDS: FUROSEMIDE 40 MG TAB PO SCH (16:05)
[2020-01-20 16:57] LABS: Glucose,Whole Blood 131 mg/dL (75-99)
--- NOTE | 2020-01-20 17:07 | CONS ---
CONSULTATION CHIEF COMPLAINT: Shortness of breath. Elizabeth is an 84-year-old lady with history of asthma, hypothyroidism, polymyalgia, who presented to hospital complaining of not feeling well and shortness of breath. There is no history of leg swelling. No history of cough, sputum, fever. The patient apparently underwent a chest x-ray where they thought she had congestive heart failure and brought her in. There is no prior history of coronary artery disease or congestive heart failure. The patient does not have any chest pain, PND or orthopnea. EKG shows sinus tachycardia with nonspecific ST-T wave changes. LABS: Labs show that the hemoglobin is normal. BUN is elevated at 43, creatinine is 1.2, potassium is 3. Troponin is normal. BNP is normal. PAST MEDICAL HISTORY: Significant for polymyalgia rheumatica, hypertension and hypothyroidism. MEDICATIONS: Medications include [place], prednisone, albuterol, Synthroid, hydrochlorothiazide. ALLERGIES: There are NO KNOWN DRUG ALLERGIES. FAMILY HISTORY: Negative for premature coronary artery disease. SOCIAL HISTORY: Negative for current smoking, EtOH abuse or drug abuse. REVIEW OF SYSTEMS: HEENT is unremarkable. CARDIAC: As described above. RESPIRATORY: As described above. GI: Negative. GENITOURINARY: Negative. ALLERGY: Negative. IMMUNOLOGY: Negative. SKIN: Negative. MUSCULOSKELETAL: Significant for arthritis. PSYCHOSOCIAL: Negative. ENDOCRINE: Negative. DERMATOLOGY: Negative. CONSTITUTIONAL: Significant for fatigue, tiredness, not feeling well. Rest of the system review is not relevant. PHYSICAL EXAMINATION: Comfortable at rest. Afebrile. Heart rate is 90 beats per minute, blood pressure is 130/70, respiratory rate 18, oxygen saturation is 100% on 3 L. There is no jugular venous distention. Carotid upstroke is normal. There is no bruit. Chest exam reveals good air entry bilaterally. I do not hear any crackles or rhonchi. Heart exam reveals first and second heart sounds. No gallop. No murmur. Abdomen is soft, nontender. Examination of extremities did not reveal any edema. Peripheral pulses are felt. ASSESSMENT: Shortness of breath probably related to acute-onset congestive heart failure, probably diastolic. PLAN: I am going to obtain a 2D echo. Since the patient has significant prerenal azotemia already, I am going to change the Lasix from 40 IV q.8 to 40 p.o. b.i.d. I agree with the nebulizers and steroids that the patient is on. I will further optimize therapies based on the LV function. JENNIFER / SWATHIN: [id number] /
[2020-01-20] MEDS ORDERED: Magnesium Replacement Protocol 1 EACH MISC MISCELLANE PRN (17:17)
[2020-01-20 20:00] LABS: Glucose,Whole Blood 251 mg/dL (75-99)
--- NOTE | 2020-01-20 20:10 | PN ---
PROGRESS NOTE DATE OF SERVICE: 01/20/2020 This 84-year-old woman who was admitted with CHF, acute exacerbation, is closely monitored. Patient is being diuresed at this time. The patient also had bilateral pleural effusion, left more than the right, with effusion also. The creatinine is also increased, indicating some acute renal failure. No chest pain. No palpitations. Cardiology and Pulmonology are following the patient closely. Past medical history reviewed. REVIEW OF SYSTEMS: CARDIOVASCULAR SYSTEM: As mentioned earlier. RESPIRATORY SYSTEM: As mentioned earlier. GI: No nausea, vomiting. : No dysuria or retention. NERVOUS SYSTEM: No numbness, weakness. CURRENT MEDICATIONS: 1. Tylenol. 2. [place] 5 mg. 3. DuoNeb q.i.d. and p.r.n. 4. Xanax 0.25 t.i.d. 5. Lasix 40 mg p.o. b.i.d. 6. Solu-Medrol 40 IV q.8. 7. Lopressor. 8. Narcan. 9. Protonix. 10.[place] Thyroid. PHYSICAL EXAMINATION: Patient is alert, oriented x3. The pulse is 94, blood pressure 123/65, respiration 18, temperature 97.7, pulse ox 98% on 3 L. HEENT: Conjunctivae normal. NECK: No jugular venous distention. CARDIOVASCULAR SYSTEM: S1, S2 muffled. RESPIRATORY SYSTEM: Breath sounds diminished at the bases. A few scattered rhonchi and crackles. ABDOMEN: Soft, non-tender. NERVOUS SYSTEM: No focal deficit. LABS: WBC 5.6, hemoglobin 13.6. Sodium 142, potassium 3. Creatinine is 1.29. Glucose 183. ASSESSMENT: 1. Shortness of breath secondary to congestive heart failure, acute exacerbation, ejection fraction unknown. 2. Acute exacerbation of intermittent chronic bronchial asthma. 3. Increased creatinine with possible mild acute renal failure with acute tubular necrosis. 4. History of asthma. 5. Hypothyroidism. 6. History of polymyalgia rheumatica. 7. History of tonsillectomy. 8. History of kidney donation. 9. Hypokalemia. 10.FULL CODE. RECOMMENDATIONS AND DISCUSSION: I recommend to continue current medications, continue with the monitoring, symptomatic treatment. We will have replacement protocol. Otherwise, continue with gentle diuresis. Monitor creatinine very closely. Otherwise, continue the rest of the medications. Closely follow with multiple consultants. Prognosis guarded. Further recommendations to follow. MMODL / IJN: [id number] / MTDD
[2020-01-21 06:15] LABS: Glucose,Whole Blood 127 mg/dL (75-99)
[2020-01-21] MEDS: INSULIN ASPART (NovoLOG) 100 UNIT/ML VIAL SQ SCH ×4 (06:16→21:22)
[2020-01-21] MEDS: PANTOPRAZOLE 40 MG TABLET PO SCH (06:22)
[2020-01-21 07:46] LABS: Basophils # (A) 0.1 k/uL (0-0.2); Basophils % (A) 1 %; Eosinophils # (A) 0.1 k/uL (0-0.7); Eosinophils % (A) 0 %; HGB 13.7 gm/dL (11.4-16.0); Lymphocytes # (A) 1.2 k/uL (1.0-4.8); Lymphocytes % (A) 7 %; MCH 32.3 pg (25.0-35.0); MCHC 33.5 g/dL (31.0-37.0); MCV 96.2 fL (80.0-100.0); Monocytes # (A) 0.7 k/uL (0-1.0); Monocytes % (A) 4 %; Neutrophils # (A) 14.4 k/uL (1.3-7.7); Neutrophils % (A) 88 %; Platelet Count 240 k/uL (150-450); RBC 4.26 m/uL (3.80-5.40); WBC 16.5 k/uL (3.8-10.6)
[2020-01-21 07:54] LABS: Calcium 9.5 mg/dL (8.4-10.2); Magnesium 2.2 mg/dL (1.6-2.3); Potassium 3.4 mmol/L (3.5-5.1)
[2020-01-21] MEDS: methylPREDNISolone SOD SUCCI 40 MG/ML 1 ML VIAL IV SCH ×3 (08:04→23:04)
[2020-01-21] MEDS: THYROID, PORK 30 MG TAB PO SCH (08:05)
[2020-01-21] MEDS: METOPROLOL TARTRATE 25 MG TAB PO SCH ×2 (08:05→21:20)
[2020-01-21] MEDS: HEPARIN SODIUM,PORCINE 5,000 UNIT/ML 1 ML VIAL SQ SCH ×2 (08:05→21:20)
[2020-01-21] MEDS: FUROSEMIDE 40 MG TAB PO SCH ×2 (08:05→16:44)
--- NOTE | 2020-01-21 09:00 | XR ---
EXAMINATION TYPE: XR chest 1V portable DATE OF EXAM: 01/21/2020 COMPARISON: 01/20/2020 HISTORY: Shortness of breath TECHNIQUE: Single frontal view of the chest is obtained. FINDINGS: Diffuse interstitial pattern with bilateral consolidation and small effusion. Curvature of the spine noted. Diffuse osteopenia and arthropathy of the shoulders. Hyperinflation suggests COPD. IMPRESSION: 1. Diffuse interstitial pattern with bilateral pleural-parenchymal changes stable. Correlate for CHF otherwise consider pneumonia.
[2020-01-21] MEDS: IPRATROPIUM-ALBUTEROL 3 ML NEB INHALATION SCH ×4 (09:12→21:03)
[2020-01-21] MEDS: AZITHROMYCIN 500 MG TAB PO SCH (10:53)
[2020-01-21 11:36] LABS: Glucose,Whole Blood 154 mg/dL (75-99)
--- NOTE | 2020-01-21 11:43 | CT ---
EXAMINATION TYPE: CT chest wo con DATE OF EXAM: 01/21/2020 COMPARISON: Chest x-ray from earlier today and last 2 days. HISTORY: Left chest infiltrate, abnormal x-ray. CT DLP: 208.9 mGycm. Automated Exposure Control for Dose Reduction was Utilized. TECHNIQUE: CT scan of the thorax is performed without IV contrast. FINDINGS: LUNGS: There are small to moderate size left greater than right pleural effusions with associated com pressive atelectasis in the left lung base. There is bilateral mild edematous change with areas of re ticulation and intralobular septal thickening suggesting [id number] interstitial edema. There i s more focal atelectasis and/or consolidation right infrahilar level extending anterior inferiorly. A dditional left perihilar and infrahilar atelectasis and/or consolidation is present. MEDIASTINUM: Lack of IV contrast is noted to limit evaluation for mediastinal and especially hilar ad enopathy. There are no definitive greater than 1 cm hilar or mediastinal lymph nodes. Mild cardiomega ly. No significant pericardial effusion is seen. Mild to moderate calcified plaque along course of de scending aorta. Ascending aortic aneurysm up to 3.7 cm axial image 21. Some coronary artery calcifica tion redemonstrated. There is dilated fluid-filled mid to distal esophagus. 2. Diaphragmatic hiatus where there is ovoid 1.3 cm cm density of uncertain etiology sagittal image 6 3 and coronal image 41. Visualized portion of stomach is poorly distended. OTHER: Underlying scoliosis noted on the localizer. IMPRESSION: 1. Underlying COPD. CHF exacerbation flow present with mild cardiomegaly and small left greater than right bilateral pleural effusions along with mild interstitial edema bilaterally. Difficult to exclud e areas of acute infiltrate though favor atelectatic change. 2. Dilated fluid-filled esophagus up to 1.3 cm ovoid density at the gastroesophageal junction at leve l of diaphragmatic hiatus, cannot exclude obstructing ingested food product or foreign body. Consider direct visualization.
--- NOTE | 2020-01-21 11:57 | P.PN ---
Subjective Progress Note Date: 01/21/20 Principal diagnosis: Left lower lobe infiltrate/effusion This is a very pleasant 84-year-old female patient who follows with Dr. Ralph as her primary care provider. She has a history of mild intermittent chronic bronchial asthma, hypothyroidism and polymyalgia rheumatica. She is a lifelong nonsmoker. 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 She had been having episodes of shortness of breath over the past 2 weeks. She was having trouble lying flat. She was having increased shortness of breath with minimal exertion. She had been seen and evaluated by her PCP who did order a chest x-ray. Based on the findings she was referred to the emergency room. Asked x-ray revealed diffuse interstitial pattern with bilateral consolidation and small effusion. She was hypoxic in the low 90s on 2 L/m per nasal cannula. White count 9.6. Creatinine 1.13. ProBNP 378. Troponin negative. She is seen today in consultation on the selective care unit. She is currently awake and alert in no acute distress. Maintaining O2 saturations in the low 90s on 3 L/m per nasal ca nnula.Echocardiogram reveals preserved preserved left ventricular systolic function with ejection fraction 55-60%. Mild to moderate pulmonary hypertension. No significant valvular disorder. He is currently on bronchodilators, IV Solu-Medrol, oral diuretics. His chest x-ray shows improvement in the fluid volume overload. There is still a small to moderate left pleural effusion and a tiny right pleural effusion. She is breathing easier today compared to yesterday. CoVID 19 screen pending. The patient is seen today 01/21/2020 in follow-up on the selective care unit. She is currently resting comfortably in bed. Awake and alert in no acute distress. No worsening shortness of breath, cough or congestion. Maintaining O2 saturations in the low 90s on 2 L/m per nasal cannula. She's afebrile. Hemodynamically stable. Blood culture reveals no growth to date. White count 16.5. Hemoglobin 13.7. Sodium 139. Potassium 3.4. Creatinine 1.32. Covid 19 screen was negative. She remains on bronchodilators and IV Solu-Medrol. Chest x-ray reveals diffuse interstitial pattern with bilateral pleural parenchymal changes. Left pleural infiltrate/effusion. Initiated on ceftriaxone and a zithromycin. Oral diuretics. Heparin for DVT prophylaxis. Objective - Vital Signs Vital signs: Vital Signs Temp 98.2 F 06/25/20 11:41 Pulse 85 01/21/20 11:41 Resp 16 01/21/20 11:41 BP 142/80 01/21/20 11:41 Pulse Ox 93 L 01/21/20 11:41 Intake & Output 01/20/20 01/21/20 01/21/20 18:59 06:59 18:59 Intake Total 720 Output Total 600 650 200 Balance 120 -650 -200 Weight 55.9 kg 55.4 kg 55.4 kg Intake: Oral 720 Output: Urine 600 650 200 Other: Voiding Method Bedside Commode Bedside Commode - Exam GENERAL EXAM: Alert, active, very pleasant 84-year-old female patient, on 3 L nasal cannula, comfortable in no apparent distress. HEAD: Normocephalic. EYES: Normal reaction of pupils, equal size. NOSE: Clear with pink turbinates. THROAT: No erythema or exudates. NECK: No masses, no JVD. CHEST: No chest wall deformity. LUNGS: Equal air entry with basilar crackles left greater than right. CVS: S1 and S2 normal with no audible murmur, regular rhythm. ABDOMEN: No hepatosplenomegaly, normal bowel sounds, no guarding or rigidity. SPINE: No scoliosis or deformity SKIN: No rashes CENTRAL NERVOUS SYSTEM: No focal deficits, tone is normal in all 4 extremities. EXTREMITIES: There is no peripheral edema. No clubbing, no cyanosis. P eripheral pulses are intact. - Labs CBC & Chem 7: 01/21/20 05:54 01/21/20 05:54 Labs: Abnormal Lab Results - Last 24 Hours (Table) 01/20/20 01/20/20 01/20/20 Range/Units 05:39 16:56 19:58 WBC (3.8-10.6) k/uL Neutrophils # (1.3-7.7) k/uL Potassium (3.5-5.1) mmol/L BUN (7-17) mg/dL Creatinine (0.52-1.04) mg/dL Glucose (74-99) mg/dL POC Glucose (mg/dL) 131 H 251 H (75-99) mg/dL Procalcitonin 0.18 H (0.02-0.09) ng/mL 01/21/20 01/21/20 01/21/20 Range/Units 05:54 05:54 06:14 WBC 16.5 H (3.8-10.6) k/uL Neutrophils # 14.4 H (1.3-7.7) k/uL Potassium 3.4 L (3.5-5.1) mmol/L BUN 64 H (7-17) mg/dL Creatinine 1.32 H (0.52-1.04) mg/dL Glucose 114 H (74-99) mg/dL POC Glucose (mg/dL) 127 H (75-99) mg/dL Procalcitonin (0.02-0.09) ng/mL 01/21/20 Range/Units 11:34 WBC (3.8-10.6) k/uL Neutrophils # (1.3-7.7) k/uL Potassium (3.5-5.1) mmol/L BUN (7-17) mg/dL Creatinine (0.52-1.04) mg/dL Glucose (74-99) mg/dL POC Glucose (mg/dL) 154 H (75-99) mg/dL Procalcitonin (0.02-0.09) ng/mL Microbiology - Last 24 Hours (Table) 01/19/20 19:04 Blood Culture - Preliminary Blood No Growth after 24 hours Assessment and Plan Assessment: 1 Acute hypoxic respiratory failure secondary to fluid volume overload and basilar pleural effusions left greater than right possibly secondary to diasto lic congestive heart failure. Preserved left ventricular systolic function. 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 Kwon Chest x-ray revealed diffuse interstitial pattern with bilateral pleural parenchymal changes. Computed tomography scan of the chest reviewed, possible loculated effusion on the left. May consider a thoracentesis. GI consult regarding the fluid and possible foreign body or obstruction in the distal esophagus. Pro calcitonin level 0.18. Ceftriaxone and azithromycin initiated Blood culture reveals no growth to date Continue bronchodilators and IV Solu-Medrol Titrate down the FiO2 as tolerated CoVID 19 screen negative We'll continue to follow and make further recommendations based on her clinical status I, the cosigning physician, performed a history & physical examination of the patient. Lungs sounds with crackles in the posterior bases, left greater than right. Maintaining good O2 saturations in the 90s on 3 L/m per nasal cannula. I discussed the assessment and plan of care with my nurse practitioner, Bernie Wing. I attest to the above note as dictated by her.
--- NOTE | 2020-01-21 12:09 | P.PN ---
Subjective Progress Note Date: 01/21/20 Is is an 84-year-old female patient with documented history of asthma, hypothyroidism, polymyalgia, who presented to the hospital with symptoms of shortness of breath. She's been diuresing well on IV Lasix, she was seen this morning and states that her breathing is improved significantly as has her lower extremity edema. She does not feel back to her normal, she still has some orthopnea. Her weight is down 0.5 kg today. Blood pressure 112/60 with a heart rate in the 90s, 94% on 2 L of oxygen. White blood cell count 16.5, hemoglobin 13.7, platelet count 240. Sodium 139, potassium 3.4, BUN 64, creatinine 1.3, magnesium 2.2. Chest x-ray showed diffuse interstitial pattern with bilateral pleural parenchymal changes. Left pleural infiltrate/effusion. She is currently on antibiotics. Echocardiogram with Doppler study revealed an ejection fraction of 55-60%, mild to moderate tricuspid regurg. Objective - Vital Signs Vital signs: Vital Signs Temp 98.1 F 01/21/20 08:00 Pulse 96 01/21/20 09:22 Resp 16 01/21/20 08:00 BP 112/63 01/21/20 08:00 Pulse Ox 94 L 01/21/20 08:00 Intake & Output 01/20/20 01/21/20 01/21/20 18:59 06:59 18:59 Intake Total 720 Output Total 600 650 200 Balance 120 -650 -200 Weight 55.9 kg 55.4 kg Intake: Oral 720 Output: Urine 600 650 200 Other: Voiding Method Bedside Commode Bedside Commode - Exam GENERAL EXAM: Alert, active, very pleasant 84-year-old female patient, on 3 L nasal cannula, comfortable in no apparent distress. HEAD: Normocephalic. EYES: Normal reaction of pupils, equal size. NOSE: Clear with pink turbinates. THROAT: No erythema or exudates. NECK: No masses, no JVD. CHEST: No chest wall deformity. LUNGS: Equal air entry with basilar crackles left greater than right. Mild diminished air entry to the bases CVS: S1 and S2 normal with no audible murmur, regular rhythm. ABDOMEN: No hepatosplenomegaly, normal bowel sounds, no guarding or rigidity. SPINE: No scoliosis or deformity SKIN: No rashes CENTRAL NERVOUS SYSTEM: No focal deficits, tone is normal in all 4 extremities. EXTREMITIES: There is no peripheral edema. No clubbing, no cyanosis. Peripheral pulses are intact. - Labs CBC & Chem 7: 01/21/20 05:54 01/21/20 05:54 Labs: Abnormal Lab Results - Last 24 Hours (Table) 01/20/20 01/20/20 01/20/20 Range/Units 05:39 11:34 16:56 WBC (3.8-10.6) k/uL Neutrophils # (1.3-7.7) k/uL Potassium (3.5-5.1) mmol/L BUN (7-17) mg/dL Creatinine (0.52-1.04) mg/dL Glucose (74-99) mg/dL POC Glucose (mg/dL) 183 H 131 H (75-99) mg/dL Procalcitonin 0.18 H (0.02-0.09) ng/mL 01/20/20 01/21/20 01/21/20 Range/Units 19:58 05:54 05:54 WBC 16.5 H (3.8-10.6) k/uL Neutrophils # 14.4 H (1.3-7.7) k/uL Potassium 3.4 L (3.5-5.1) mmol/L BUN 64 H (7-17) mg/dL Creatinine 1.32 H (0.52-1.04) mg/dL Glucose 114 H (74-99) mg/dL POC Glucose (mg/dL) 251 H (75-99) mg/dL Procalcitonin (0.02-0.09) ng/mL 01/21/20 Range/Units 06:14 WBC (3.8-10.6) k/uL Neutrophils # (1.3-7.7) k/uL Potassium (3.5-5.1) mmol/L BUN (7-17) mg/dL Creatinine (0.52-1.04) mg/dL Glucose (74-99) mg/dL POC Glucose (mg/dL) 127 H (75-99) mg/dL Procalcitonin (0.02-0.09) ng/mL Microbiology - Last 24 Hours (Table) 01/19/20 19:04 Blood Culture - Preliminary Blood No Growth after 24 hours Assessment and Plan Plan: Assessment and plan: 1 Acute hypoxic respiratory failure secondary to fluid volume overload and basilar pleural effusions left greater than right, secondary to diastolic congestive heart failure, acute on chronic. Preserved left ventricular systolic function. 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 of the chest is pending. Echo showed normal LV function. Continue to monitor the intake and output along with daily weights and daily lytes BUN and creatinine. DNP note has been reviewed, I agree with a documented findings and plan of care. Patient was seen and examined.
[2020-01-21 16:34] LABS: Glucose,Whole Blood 187 mg/dL (75-99)
[2020-01-21] MEDS ORDERED: Potassium Replacement Protocol 1 EACH MISC MISCELLANE PRN (16:38)
[2020-01-21] MEDS: POTASSIUM CHLORIDE ER 20 MEQ TAB.ER PO SCH ×2 (17:26→17:33)
[2020-01-21 20:43] LABS: Glucose,Whole Blood 126 mg/dL (75-99)
--- NOTE | 2020-01-22 00:01 | PN ---
PROGRESS NOTE DATE OF SERVICE: 01/21/2020 This 84-year-old woman who was admitted with CHF acute exacerbation, is being closely monitored at this time. The patient still has some shortness of the breath. Patient receiving diuretics. The patient also seen by Dr. Kwon. A CAT scan of the chest was done. The patient also had diastolic dysfunction and some pleural effusion also. A chest CT was done today per Dr. Kwon's recommendations which was reviewed personally by me and showed underlying COPD and small left greater than right bilateral pleural effusion was also noted and interstitial edema also. A dilated fluid-filled esophagus was also noted. Patient will be closely monitored. There is no history of fever, rigors, chills at this time. PAST MEDICAL HISTORY: Reviewed. REVIEW OF SYSTEMS: CARDIOVASCULAR SYSTEM: No angina. RESPIRATORY SYSTEM: As mentioned earlier. GI: As mentioned earlier. : No dysuria. NERVOUS SYSTEM: No numbness or weakness. CURRENT MEDICATIONS: Current medications are reviewed and include: 1. Tylenol 500 mg q.6 p.r.n. 2. [place] 5 mg q.i.d. p.r.n. 3. DuoNeb q.i.d. 4. Xanax 0.25 t.i.d. 5. Zithromax 500 mg p.o. daily. 6. Rocephin 1 gram daily. 7. Lasix 40 mg p.o. b.i.d. 8. Heparin subcu b.i.d. 9. NovoLog scale. 10.Solu-Medrol 40 IV q.8. 11.Lopressor. 12.Replacement protocols. 13.Narcan. 14.Protonix 40 mg daily. 15.K-Dur 20 mEq p.o. q.1. 16.[place] Thyroid. PHYSICAL EXAMINATION: Patient is alert, oriented x3. Pulse 105, blood pressure is 140/77, respiration 18, temperature 98 degrees, pulse ox 94% on 2 L. HEENT: Conjunctivae normal. Oral mucosa moist. NECK: No jugular venous distention. No carotid bruit. No lymph node enlargement. CARDIOVASCULAR: S1, S2 muffled. RESPIRATORY: Breath sounds diminished at the bases. A few scattered rhonchi and crackles. ABDOMEN: Soft, nontender. LEGS: No edema, no swelling. NERVOUS SYSTEM: Diffusely weak. LABS: WBC 16.5, potassium 3.4, glucose noted and creatinine is 1.34, baseline is 1.29. ASSESSMENT: 1. Shortness of breath, possibly congestive heart failure acute exacerbation with acute on chronic diastolic dysfunction ejection fraction 55% to 60%. 2. Mild to moderate tricuspid regurgitation and mild to moderate pulmonary hypertension. Small generalized pericardial effusion. 3. Acute exacerbation of the chronic intermittent bronchial asthma. 4. Possible chronic obstructive pulmonary disease. 5. Increased creatinine with possible mild acute renal failure acute tubular necrosis, prerenal factor. 6. History of asthma. 7. Hypothyroidism. 8. History of polymyalgia rheumatica. 9. History of tonsillectomy. 10.History of kidney donation. 11.Hypokalemia. 12.CT scan chest showing bilateral pleural effusion. 13.Increased WBC. 14.Possible mild acute urinary tract infection. 15.FULL CODE. RECOMMENDATIONS AND DISCUSSION: This 84-year-old woman presented with multiple complex medical issues, we will monitor the patient closely. Continue the current medications, continue symptomatic treatment. Otherwise continue with antibiotics and bronchodilators. Continue with cautious diuresis, p.o. diuresis, and monitor creatinine closely. Prognosis guarded because of multiple complex medical issues. CT scan reviewed. The patient is probably short of breath because of combination of CHF and COPD or bronchial asthma. Prognosis guarded. Further recommendations to follow. MMODL / IJN: [id number] /
--- NOTE | 2020-01-22 04:27 | P.CONS ---
History of Present Illness - Reason for Consult Consult date: 01/21/20 Dilated fluid filled esophagus Requesting physician: Ganesh Osborn - Chief Complaint Shortness of breath - History of Present Illness 84-year-old female with multiple medical comorbidities including chronic bronchial asthma, hypothyroidism and polymyalgia rheumatica who presented to the hospital with complaints of difficulty breathing. She reports shortness of breath occurring over the past 2 weeks with associated difficulty lying flat due to shortness of breath. Symptoms worsened by exertion. Currently the patient is receiving treatment for evidence of bilateral pleural effusions and didn't suspected acute diastolic heart failure. She is also receiving breathing treatments and is on broad-spectrum antibiotic therapy for left pleural infiltrate/effusion. The patient had a computed tomography scan performed in evaluation with incidental finding of a dilated fluid-filled esophagus. On questioning the patient denies any difficulty swallowing. She does report symptoms of belching, "feeling gassy" and the production of phlegm. She does report one episode 2 weeks ago where she had some difficulty while eating. However she reports that symptoms have been improved over the past week since drinking warm michael savanna and treatment. Currently denying any abdominal pain she has tolerated her diet. Review of Systems REVIEW OF SYSTEMS: CONSTITUTIONAL: Denies any fevers, chills, weight change or fatigue. CARDIOVASCULAR: Denies any chest pain, palpitations high or low blood pressures RESPIRATORY: Denies any hemoptysis but has reported shortness of breath worsening over the past few weeks. GENITOURINARY: No dysuria or hematuria. MUSCULOSKELETAL: No weakness reported. SKIN: Denies any new rashes or lesions, jaundice or pallor. PSYCHIATRIC: Denies any depression or anxiety. NEUROLOGY: Denies headache, denies any new focal deficits. EARS/NOSE/THROAT: No recent hearing change, congestion, nasal discharge or sore throat. EYES: No pain in eyes, discharge or change in vision. GASTROINTESTINAL: As per HPI. Past Medical History Past Medical History: Asthma, Thyroid Disorder Additional Past Medical History / Comment(s): PMR History of Any Multi-Drug Resistant Organisms: None Reported Past Surgical History: Tonsillectomy Additional Past Surgical History / Comment(s): donated kidney Past Anesthesia/Blood Transfusion Reactions: No Reported Reaction Past Psychological History: No Psychological Hx Reported Smoking Status: Never smoker Past Alcohol Use History: None Reported Past Drug Use History: None Reported - Past Family History Father Family Medical History: Hypertension Mother Family Medical History: No Reported History Medications and Allergies Home Medications Medication Instructions Recorded Confirmed Type Albuterol Sulfate [Albuterol 2 puff PO RT-Q6H PRN 01/19/20 01/19/20 History Sulfate Hfa] HYDROcodone/APAP 5-325MG [[place] 1 tab PO QID PRN 01/19/20 01/19/20 History 5-325] Hydrochlorothiazide 25 mg PO W/BRKFST 01/19/20 01/19/20 History Thyroid,Pork [[place] Thyroid] 90 mg PO DAILY@0800 01/19/20 01/19/20 History predniSONE 5 mg PO W/BRKFST 01/19/20 01/19/20 History Allergies Allergy/AdvReac Type Severity Reaction Status Date / Time No Known Allergies Allergy Verified 01/19/20 18:23 Physical Exam Vitals: Vital Signs Temp Pulse Pulse Resp BP Pulse Ox 01/21/20 12:58 92 01/21/20 12:50 92 01/21/20 11:47 98.2 F 85 16 142/80 93 L 01/21/20 11:41 98.2 F 85 16 142/80 93 L 01/21/20 09:22 96 01/21/20 09:12 100 01/21/20 08:00 98.1 F 105 H 16 112/63 94 L 01/21/20 03:45 98.2 F 97 20 125/82 93 L 01/20/20 23:15 97.9 F 87 18 156/74 95 01/20/20 21:17 95 01/20/20 21:09 95 95 01/20/20 20:15 98.1 F 99 18 125/71 91 L 01/20/20 16:06 98 01/20/20 16:00 97.7 F 94 18 123/65 98 01/20/20 15:56 94 01/20/20 13:08 100 Intake and Output 01/20/20 01/21/20 01/21/20 22:59 06:59 14:59 Intake Total 240 Output Total 650 200 200 Balance -410 -200 -200 Intake: Oral 240 Output: Urine 650 200 200 Other: Voiding Method Bedside Commode Bedside Commode Bedside Commode Weight 55.4 kg 55.4 kg On physical examination, patient appears comfortable in no apparent distress. HEAD: Normocephalic, atraumatic. EYES: No scleral icterus. No conjunctival injection. MOUTH: No lesions, tongue midline. NECK: Trachea midline, no gross abnormalities. CHEST: Decreased air entry in all lung reyes. HEART: Regular rate and rhythm. ABDOMEN: Soft, thin and nontender to palpation. Bowel sounds are positive. No organomegaly. No guarding or rigidity. EXTREMITIES: No pedal edema. SKIN: No rashes, no jaundice. NEUROLOGIC: Alert and oriented x3. No focal deficits. Results CBC & Chem 7: 01/21/20 05:54 01/21/20 05:54 Labs: Abnormal Lab Results - Last 24 Hours (Table) 01/20/20 01/20/20 01/20/20 Range/Units 05:39 16:56 19:58 WBC (3.8-10.6) k/uL Neutrophils # (1.3-7.7) k/uL Potassium (3.5-5.1) mmol/L BUN (7-17) mg/dL Creatinine (0.52-1.04) mg/dL Glucose (74-99) mg/dL POC Glucose (mg/dL) 131 H 251 H (75-99) mg/dL Procalcitonin 0.18 H (0.02-0.09) ng/mL 01/21/20 01/21/20 01/21/20 Range/Units 05:54 05:54 06:14 WBC 16.5 H (3.8-10.6) k/uL Neutrophils # 14.4 H (1.3-7.7) k/uL Potassium 3.4 L (3.5-5.1) mmol/L BUN 64 H (7-17) mg/dL Creatinine 1.32 H (0.52-1.04) mg/dL Glucose 114 H (74-99) mg/dL POC Glucose (mg/dL) 127 H (75-99) mg/dL Procalcitonin (0.02-0.09) ng/mL 01/21/20 Range/Units 11:34 WBC (3.8-10.6) k/uL Neutrophils # (1.3-7.7) k/uL Potassium (3.5-5.1) mmol/L BUN (7-17) mg/dL Creatinine (0.52-1.04) mg/dL Glucose (74-99) mg/dL POC Glucose (mg/dL) 154 H (75-99) mg/dL Procalcitonin (0.02-0.09) ng/mL Microbiology - Last 24 Hours (Table) 01/19/20 19:04 Blood Culture - Preliminary Blood No Growth after [address] scan - chest: report reviewed (Incidental findings of a dilated fluid-filled esophagus on CT chest) Assessment and Plan (1) Dilatation of esophagus Narrative/Plan: 84-year-old female presenting to the hospital with symptoms of shortness of breath worsening over the past 2 weeks, currently being treated for an acute exacerbation of diastolic heart failure. An asthma exacerbation. Computed tomography scan of the chest incidentally showed a dilated fluid-filled esophagus. Significant findings unknown as patient has previously not had any problems with swallowing. She does report a little difficulty 2 weeks ago as well as some nonspecific complaints of belching, phlegm production and feeling gassy. She feels that drinking warm michael savanna over the past week has helped with the symptoms. Finding and may be related to underlying esophageal motility disorder, distal stricture, age-related changes or other etiology. Current Visit: Yes Status: Acute Code(s): K22.8 - OTHER SPECIFIED DISEASES OF ESOPHAGUS SNOMED Code(s): 36813240 (2) Asthma exacerbation Current Visit: Yes Status: Acute Code(s): J45.901 - UNSPECIFIED ASTHMA WITH (ACUTE) EXACERBATION SNOMED Code(s): 581904771 Plan: Supportive care Okay for diet Lifestyle modifications including small bites of food, subsequent liquid between bites of food is sitting upright while eating all discussed with the patient Upper endoscopy for evaluation offered to the patient who would need pulmonary clearance prior to investigation due to current treatments for asthma exacerbation and acute diastolic heart failure, however at this time after discussion with her and the patient would like to proceed with conservative treatments and consider endoscopy in the future Continue other medical management per primary team Thank you for allowing us to participate in the care of the patient we will continue to follow
[2020-01-22 06:30] LABS: Glucose,Whole Blood 131 mg/dL (75-99)
[2020-01-22 06:47] LABS: Basophils % (A) 0 %; Eosinophils # (A) 0.1 k/uL (0-0.7); Eosinophils % (A) 1 %; HCT 41.2 % (34.0-46.0); HGB 13.6 gm/dL (11.4-16.0); Lymphocytes # (A) 0.8 k/uL (1.0-4.8); Lymphocytes % (A) 6 %; MCH 30.7 pg (25.0-35.0); Mean Platelet Volume 7.5; Monocytes # (A) 0.4 k/uL (0-1.0); Monocytes % (A) 3 %; Neutrophils # (A) 12.5 k/uL (1.3-7.7); Neutrophils % (A) 90 %; Platelet Count 276 k/uL (150-450); RBC 4.43 m/uL (3.80-5.40); RDW 13.1 % (11.5-15.5); WBC 13.9 k/uL (3.8-10.6)
[2020-01-22 06:51] LABS: Potassium 3.1 mmol/L (3.5-5.1)
[2020-01-22] MEDS: PANTOPRAZOLE 40 MG TABLET PO SCH (06:53)
[2020-01-22] MEDS: INSULIN ASPART (NovoLOG) 100 UNIT/ML VIAL SQ SCH ×4 (06:55→20:44)
[2020-01-22] MEDS ORDERED: Potassium Replacement Protocol 1 EACH MISC MISCELLANE PRN (07:12)
[2020-01-22] MEDS: HEPARIN SODIUM,PORCINE 5,000 UNIT/ML 1 ML VIAL SQ SCH ×2 (08:08→20:44)
[2020-01-22] MEDS: THYROID, PORK 30 MG TAB PO SCH (08:08)
[2020-01-22] MEDS: methylPREDNISolone SOD SUCCI 40 MG/ML 1 ML VIAL IV SCH ×3 (08:08→23:56)
[2020-01-22] MEDS: FUROSEMIDE 40 MG TAB PO SCH ×2 (08:09→15:07)
[2020-01-22] MEDS: AZITHROMYCIN 500 MG TAB PO SCH (08:09)
[2020-01-22] MEDS: METOPROLOL TARTRATE 25 MG TAB PO SCH ×2 (08:09→20:44)
[2020-01-22] MEDS: POTASSIUM CHLORIDE ER 20 MEQ TAB.ER PO SCH ×2 (08:09→10:05)
[2020-01-22] MEDS: IPRATROPIUM-ALBUTEROL 3 ML NEB INHALATION SCH ×4 (08:21→19:06)
--- NOTE | 2020-01-22 11:17 | P.PN ---
Subjective Progress Note Date: 01/22/20 Is is an 84-year-old female patient with documented history of asthma, hypothyroidism, polymyalgia, who presented to the hospital with symptoms of shortness of breath. She's been diuresing well on IV Lasix, she was seen this morning and states that her breathing is improved significantly as has her lower extremity edema. She does not feel back to her normal, she still has some orthopnea. Her weight is down 0.5 kg today. Blood pressure 112/60 with a heart rate in the 90s, 94% on 2 L of oxygen. White blood cell count 16.5, hemoglobin 13.7, platelet count 240. Sodium 139, potassium 3.4, BUN 64, creatinine 1.3, magnesium 2.2. Chest x-ray showed diffuse interstitial pattern with bilateral pleural parenchymal changes. Left pleural infiltrate/effusion. She is currently on antibiotics. Echocardiogram with Doppler study revealed an ejection fraction of 55-60%, mild to moderate tricuspid regurg. 01/22/2020 Patient seen and examined this morning, feeling mildly better according to her. Blood pressure 142/60 with a heart rate of 9200, 94% on 2 L of oxygen. White blood cell count 13.9, hemoglobin 13.6, platelet count 276. Sodium 140, potassium 3.1, BUN 74, creatinine 1.3. Objective - Vital Signs Vital signs: Vital Signs Temp 98.2 F 01/22/20 08:00 Pulse 94 01/22/20 08:31 Resp 16 01/22/20 08:00 BP 143/69 01/22/20 08:00 Pulse Ox 94 L 01/22/20 08:00 Intake & Output 01/21/20 01/22/20 01/22/20 18:59 06:59 18:59 Intake Total 480 240 Output Total 900 750 400 Balance -420 -750 -160 Weight 55.4 kg 55.9 kg Intake: Oral 480 240 Output: Urine 900 750 400 Other: Voiding Method Bedside Commode Bedside Commode Bedside Commode # Bowel Movements 1 - Exam GENERAL EXAM: Alert, active, very pleasant 84-year-old female patient, on 3 L nasal cannula, comfortable in no apparent distress. HEAD: Normocephalic. EYES: Normal reaction of pupils, equal size. NOSE: Clear with pink turbinates. THROAT: No erythema or exudates. NECK: No masses, no JVD. CHEST: No chest wall deformity. LUNGS: Lungs are clear to auscultation, fine crackles heard to the left base CVS: S1 and S2 normal with no audible murmur, regular rhythm. ABDOMEN: No hepatosplenomegaly, normal bowel sounds, no guarding or rigidity. SPINE: No scoliosis or deformity SKIN: No rashes CENTRAL NERVOUS SYSTEM: No focal deficits, tone is normal in all 4 extremities. EXTREMITIES: There is no peripheral edema. No clubbing, no cyanosis. Peripheral pulses are intact. - Labs CBC & Chem 7: 01/22/20 06:27 01/22/20 06:27 Labs: Abnormal Lab Results - Last 24 Hours (Table) 01/21/20 01/21/20 01/21/20 Range/Units 11:34 16:32 20:42 WBC (3.8-10.6) k/uL Neutrophils # (1.3-7.7) k/uL Lymphocytes # (1.0-4.8) k/uL Potassium (3.5-5.1) mmol/L BUN (7-17) mg/dL Creatinine (0.52-1.04) mg/dL Glucose (74-99) mg/dL POC Glucose (mg/dL) 154 H 187 H 126 H (75-99) mg/dL 01/22/20 01/22/20 01/22/20 Range/Units 06:27 06:27 06:29 WBC 13.9 H (3.8-10.6) k/uL Neutrophils # 12.5 H (1.3-7.7) k/uL Lymphocytes # 0.8 L (1.0-4.8) k/uL Potassium 3.1 L (3.5-5.1) mmol/L BUN 74 H (7-17) mg/dL Creatinine 1.33 H (0.52-1.04) mg/dL Glucose 140 H (74-99) mg/dL POC Glucose (mg/dL) 131 H (75-99) mg/dL Microbiology - Last 24 Hours (Table) 01/19/20 19:04 Blood Culture - Preliminary Blood No Growth after 48 hours Assessment and Plan Plan: Assessment and plan: 1 Acute hypoxic respiratory failure secondary to fluid volume overload and basilar pleural effusions left greater than right, secondary to diastolic congestive heart failure, acute on chronic. Preserved left ventricular systolic function. 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 DNP note has been reviewed, I agree with a documented findings and plan of care. Patient was seen and examined.
[2020-01-22 11:36] LABS: Glucose,Whole Blood 214 mg/dL (75-99)
--- NOTE | 2020-01-22 13:15 | P.PN ---
Subjective Progress Note Date: 01/22/20 Principal diagnosis: Left lower lobe infiltrate/effusion This is a very pleasant 84-year-old female patient who follows with Dr. Ralph as her primary care provider. She has a history of mild intermittent chronic bronchial asthma, hypothyroidism and polymyalgia rheumatica. She is a lifelong nonsmoker. 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 She had been having episodes of shortness of breath over the past 2 weeks. She was having trouble lying flat. She was having increased shortness of breath with minimal exertion. She had been seen and evaluated by her PCP who did order a chest x-ray. Based on the findings she was referred to the emergency room. Asked x-ray revealed diffuse interstitial pattern with bilateral consolidation and small effusion. She was hypoxic in the low 90s on 2 L/m per nasal cannula. White count 9.6. Creatinine 1.13. ProBNP 378. Troponin negative. She is seen today in consultation on the selective care unit. She is currently awake and alert in no acute distress. Maintaining O2 saturations in the low 90s on 3 L/m per nasal ca nnula.Echocardiogram reveals preserved preserved left ventricular systolic function with ejection fraction 55-60%. Mild to moderate pulmonary hypertension. No significant valvular disorder. He is currently on bronchodilators, IV Solu-Medrol, oral diuretics. His chest x-ray shows improvement in the fluid volume overload. There is still a small to moderate left pleural effusion and a tiny right pleural effusion. She is breathing easier today compared to yesterday. CoVID 19 screen pending. The patient is seen today 01/21/2020 in follow-up on the selective care unit. She is currently resting comfortably in bed. Awake and alert in no acute distress. No worsening shortness of breath, cough or congestion. Maintaining O2 saturations in the low 90s on 2 L/m per nasal cannula. She's afebrile. Hemodynamically stable. Blood culture reveals no growth to date. White count 16.5. Hemoglobin 13.7. Sodium 139. Potassium 3.4. Creatinine 1.32. Covid 19 screen was negative. She remains on bronchodilators and IV Solu-Medrol. Chest x-ray reveals diffuse interstitial pattern with bilateral pleural parenchymal changes. Left pleural infiltrate/effusion. Initiated on ceftriaxone and a zithromycin. Oral diuretics. Heparin for DVT prophylaxis. The patient is seen today 01/22/2020 in follow-up on the selective care unit. She is awake and alert in no acute distress. No worsening cough congestion. No worsening shortness of breath and she is maintaining good O2 saturations in the mid 90s on 2 L/m per nasal cannula. She remains afebrile. Computed tomography scan of the chest revealed underlying COPD. CHF exacerbation with mild cardiomegaly and small left greater than right bilateral pleural effusions along with mild interstitial edema bilaterally. Dilated fluid-filled esophagus up to 1.3 cm ovoid density in the gastroesophageal junction the liver diaphragmatic hiatus. GI services has been consulted. White count 13.9. Hemoglobin 13.6. Sodium 140. Potassium 3.1. Creatinine 1.33. She remains on ceftriaxone and azithromycin along with bronchodilators. Oral diuretics. Objective - Vital Signs Vital signs: Vital Signs Temp 98.2 F 01/22/20 08:00 Pulse 94 01/22/20 08:31 Resp 16 01/22/20 08:00 BP 143/69 01/22/20 08:00 Pulse Ox 94 L 01/22/20 08:00 Intake & Output 01/21/20 01/22/20 01/22/20 18:59 06:59 18:59 Intake Total 480 240 Output Total 900 750 400 Balance -420 -750 -160 Weight 55.4 kg 55.9 kg Intake: Oral 480 240 Output: Urine 900 750 400 Other: Voiding Method Bedside Commode Bedside Commode Bedside Commode # Bowel Movements 1 - Exam GENERAL EXAM: Alert, active, very pleasant 84-year-old female patient, on 3 L nasal cannula, comfortable in no apparent distress. HEAD: Normocephalic. EYES: Normal reaction of pupils, equal size. NOSE: Clear with pink turbinates. THROAT: No erythema or exudates. NECK: No masses, no JVD. CHEST: No chest wall deformity. LUNGS: Equal air entry with basilar crackles left greater than right. CVS: S1 and S2 normal with no audible murmur, regular rhythm. ABDOMEN: No hepatosplenomegaly, normal bowel sounds, no guarding or rigidity. SPINE: No scoliosis or deformity SKIN: No rashes CENTRAL NERVOUS SYSTEM: No focal deficits, tone is normal in all 4 extremities. EXTREMITIES: There is no peripheral edema. No clubbing, no cyanosis. Peripheral pulses are intact. - Labs CBC & Chem 7: 01/22/20 06:27 01/22/20 06:27 Labs: Abnormal Lab Results - Last 24 Hours (Table) 01/21/20 01/21/20 01/22/20 Range/Units 16:32 20:42 06:27 WBC 13.9 H (3.8-10.6) k/uL Neutrophils # 12.5 H (1.3-7.7) k/uL Lymphocytes # 0.8 L (1.0-4.8) k/uL Potassium (3.5-5.1) mmol/L BUN (7-17) mg/dL Creatinine (0.52-1.04) mg/dL Glucose (74-99) mg/dL POC Glucose (mg/dL) 187 H 126 H (75-99) mg/dL 01/22/20 01/22/20 01/22/20 Range/Units 06:27 06:29 11:32 WBC (3.8-10.6) k/uL Neutrophils # (1.3-7.7) k/uL Lymphocytes # (1.0-4.8) k/uL Potassium 3.1 L (3.5-5.1) mmol/L BUN 74 H (7-17) mg/dL Creatinine 1.33 H (0.52-1.04) mg/dL Glucose 140 H (74-99) mg/dL POC Glucose (mg/dL) 131 H 214 H (75-99) mg/dL Microbiology - Last 24 Hours (Table) 01/19/20 19:04 Blood Culture - Preliminary Blood No Growth after 48 hours Assessment and Plan Assessment: 1 Acute hypoxic respiratory failure secondary to fluid volume overload and basilar pleural effusions left greater than right possibly secondary to diastolic congestive heart failure. Preserved left ventricular systolic function. Possible aspiration due to dilated esophagus and retained fluid/blood product 2 Acute exacerbation of mild intermittent chronic bronchial asthma 3 Dilated fluid-filled esophagus up to 1.3 cm ovoid density at the gastroesophageal junction of the liver diaphragmatic hiatus. Cannot exclude obstructing digested food product or foreign body. EGD ending. 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 Kwon GI consult regarding the fluid and possible foreign body or obstruction in the distal esophagus. Continue antibiotics, Continue bronchodilators and IV Solu-Medrol Titrate down the FiO2 as tolerated We'll continue to follow and make further recommendations based on her clinical status I, the cosigning physician, performed a history & physical examination of the patient. Lungs sounds with crackles in the posterior bases, left greater than right. Maintaining good O2 saturations in the 90s on 3 L/m per nasal cannula. I discussed the assessment and plan of care with my nurse practitioner, Berine live. I attest to the above note as dictated by her.
[2020-01-22 16:40] LABS: Glucose,Whole Blood 124 mg/dL (75-99)
[2020-01-22] MEDS: PIPERACILLIN-TAZOBACTAM 3.375 GM in SODIUM CHLORIDE 0.9% 100 ML IVPB SCH ×2 (17:59→23:56)
[2020-01-22] MEDS: PANTOPRAZOLE 40 MG/10 ML VIAL IVP SCH (18:00)
--- NOTE | 2020-01-22 18:28 | PN ---
PROGRESS NOTE DATE OF SERVICE: 01/22/2020 This 84-year-old woman admitted with CHF, acute exacerbation, also had possibly aspiration pneumonia. The patient had significant fluid-filled esophagus on the CT scan. Dr. Kwon is following the patient closely. A CT scan of chest was done. Lab- beltran, creatinine is stable at 1.33 at this time. The patient is on Lasix twice daily p.o. Past medical history reviewed. REVIEW OF SYSTEMS: CARDIOVASCULAR SYSTEM: No angina, palpitations. RESPIRATORY SYSTEM: As mentioned earlier. GI: As mentioned earlier. : No dysuria or retention. NERVOUS SYSTEM: No numbness, weakness. CURRENT MEDICATIONS: Reviewed. They include: 1. Tylenol p.r.n. 2. [place] 5 mg. 3. DuoNeb. 4. Xanax. 5. Zithromax. 6. Lasix. 7. Rocephin. 8. NovoLog. 9. Solu-Medrol. 10.Protonix. 11.[place] Thyroid. PHYSICAL EXAMINATION: Patient is alert, oriented x3. The pulse is 83, blood pressure 142/81, respirations 16, temperature 98.2, pulse ox 93% on 2 L. HEENT: Conjunctivae normal. NECK: No jugular venous distention. CARDIOVASCULAR SYSTEM: S1, S2 muffled. RESPIRATORY SYSTEM: Breath sounds diminished at the bases. A few scattered rhonchi and crackles. ABDOMEN: Soft, non-tender. LEGS: No edema. No swelling. NERVOUS SYSTEM: No focal deficit. LABS: WBC 13.3, hemoglobin 13.6. Sodium 140, potassium 3.8. Creatinine is 1.33. ASSESSMENT: 1. Shortness of breath; possible congestive heart failure, acute exacerbation, with acute on chronic diastolic dysfunction, ejection fraction 50% to 60%. 2. Possible bilateral aspiration pneumonia. 3. Fluid-filled esophagus. Rule out esophageal stricture or malignancy. 4. Mild to moderate tricuspid regurgitation with mild to moderate pulmonary hypertension, small generalized pericardial effusion on the 2D echo. 5. Chronic intermittent bronchial asthma, acute exacerbation. 6. Possible chronic obstructive pulmonary disease. 7. Increased creatinine with possible mild acute renal failure with acute tubular necrosis and prerenal factors. 8. History of asthma. 9. Hypothyroidism. 10.History of polymyalgia rheumatica. 11.History of tonsillectomy. 12.History of kidney donation. 13.Hypokalemia. 14.CT scan of chest showing bilateral pleural effusion. 15.Increased white count. 16.Possible mildly acute urinary tract infection, present on admission. 17.FULL CODE. RECOMMENDATIONS AND DISCUSSION: I recommend to continue current medications, continue with the monitoring, symptomatic treatment. Continue with the diuresis. Monitor creatinine closely. Discussed with Dr. Kwon. The possibility of aspiration pneumonia is also high at this time. I recommend gastroenterology evaluation for possible endoscopies for possible distal esophageal lesions or any obstruction. Prognosis guarded. Add Protonix. Further recommendations to follow. See orders for further details. MMODL / IJN: [id number] /
[2020-01-22 20:05] LABS: Glucose,Whole Blood 198 mg/dL (75-99)
--- NOTE | 2020-01-22 21:40 | PN ---
PROGRESS NOTE DATE OF DICTATION: 01/22/2020 This patient is an 84-year-old pleasant white female who was seen in consultation yesterday for evaluation of abnormal CT scan that showed a dilated esophagus and soft tissue density at the GE junction, and we were consulted for an upper endoscopy. The patient is doing well. She denies any complaints. She reports no abdominal pain. No dysphagia or odynophagia. She denies any nausea or vomiting. She was admitted with possible pneumonia and exacerbation of congestive heart failure and presently on antibiotics. PHYSICAL EXAMINATION: She appears comfortable. No apparent distress. Vital signs are stable. Blood pressure is 142/81, pulse rate 85 and afebrile. HEENT examination unremarkable. Conjunctivae pink. Sclerae anicteric. Oral cavity no lesions. NECK: No JVD or lymph node enlargement. CHEST: Clear to auscultation. HEART: Regular rate and rhythm. ABDOMEN: Soft. Bowel sounds are positive. No organomegaly. EXTREMITIES: No pedal edema. NEUROLOGIC: Alert and oriented x3. No focal deficits. LABS: Hemoglobin 13.6, WBC slightly elevated at 13.3, platelets normal. IMPRESSION: 1. Abnormal CT scan that showed dilated esophagus with fluid-filled and a soft tissue density at the gastroesophageal junction. Rule out malignancy. Patient is asymptomatic and denies any dysphagia or history of gastroesophageal reflux. 2. Possible aspiration pneumonia. 3. Exacerbation of congestive heart failure. RECOMMENDATIONS: Discussed with the patient about the CT findings. At this time we will proceed with an upper endoscopy. She was cleared by Cardiology and Pulmonary and is scheduled for an upper endoscopy tomorrow. Further recommendations will follow. Thank you for this consultation. MMODL / IJN: [id number] /
[2020-01-23 06:13] LABS: Glucose,Whole Blood 153 mg/dL (75-99)
[2020-01-23] MEDS: INSULIN ASPART (NovoLOG) 100 UNIT/ML VIAL SQ SCH ×4 (06:25→21:24)
[2020-01-23] MEDS ORDERED: PROPOFOL 10 MG/ML 20 ML VIAL IV ONE (07:25)
[2020-01-23] MEDS ORDERED: IV FLUID CONTINUATION 1,000 ML IV ONE ×2 (07:36)
[2020-01-23] MEDS ORDERED: SODIUM CHLORIDE 0.9% 500 ML 500 ML IV ONE (07:44)
--- NOTE | 2020-01-23 07:49 | P.PCN ---
Date of Procedure: 01/23/20 Procedure(s) Performed: BRIEF HISTORY: Patient is a 84-year-old, pleasant, female admitted hospital with shortness of breath. She had a CT of the chest done that showed dilated fluid- filled esophagus with a 1.5 cm density at the GE junction. She is asymptomatic. He scheduled for an upper endoscopy to evaluate this. PROCEDURE PERFORMED: Esophagogastroduodenoscopy with biopsy. PREOPERATIVE DIAGNOSIS: Abnormal CT of the chest showing dilated esophagus. IV sedation per anesthesia. PROCEDURE: After informed consent was obtained, the patient was brought into the endoscopy unit. IV sedation was administered by Anesthesia under continuous monitoring. Initially the Olympus GIF-140 video endoscope was inserted into the mouth. Esophagus intubated without any difficulty. It was gradually advanced into the stomach and duodenum and carefully examined. The bulb and the second part of the duodenum appeared normal. The scope at this time was withdrawn to the stomach, adequately insufflated with air, and upon careful examination, mucosa of the antrum, appeared normal. The mucosa of the body, cardia and the fundus had somewhat thickened folds with poor distensibility and nodularity noted in several areas of the mucosa most prominent in the cardia of the stomach. Multiple biopsies were done from the cardia of the stomach as well as the body the stomach to rule out infiltrating neoplasm. The scope was then withdrawn into the esophagus. The GE junction was located at 39 cm from the incisors. The esophagus appeared normal. There were no erosions or ulcerations seen, but there was some exudate noted in the distal esophagus suspicious for esophagitis and the patient tolerated the procedure well. IMPRESSION: 1. Thickened folds with nodularity of the mucosa involving the fundus and cardia and the body the stomach with poor distensibility suggestive of diffuse gastritis status post multiple biopsies to rule out infiltrating neoplasm. 2. Mild esophagitis. RECOMMENDATIONS: The findings of this examination were discussed with the patient . At this time will await the biopsy results. Resume her diet.
[2020-01-23] MEDS: IPRATROPIUM-ALBUTEROL 3 ML NEB INHALATION SCH ×4 (09:41→20:48)
[2020-01-23] MEDS: AZITHROMYCIN 500 MG TAB PO SCH (09:44)
[2020-01-23] MEDS: HEPARIN SODIUM,PORCINE 5,000 UNIT/ML 1 ML VIAL SQ SCH ×2 (09:44→21:28)
[2020-01-23] MEDS: METOPROLOL TARTRATE 25 MG TAB PO SCH ×2 (09:44→21:27)
[2020-01-23] MEDS: PANTOPRAZOLE 40 MG/10 ML VIAL IVP SCH ×2 (09:45→21:28)
[2020-01-23] MEDS: methylPREDNISolone SOD SUCCI 40 MG/ML 1 ML VIAL IV SCH ×3 (09:45→21:27)
[2020-01-23] MEDS: FUROSEMIDE 40 MG TAB PO SCH ×2 (09:45→16:57)
[2020-01-23] MEDS: THYROID, PORK 30 MG TAB PO SCH (09:46)
[2020-01-23] MEDS: PIPERACILLIN-TAZOBACTAM 3.375 GM in SODIUM CHLORIDE 0.9% 100 ML IVPB SCH ×3 (09:46→22:57)
[2020-01-23 10:18] LABS: Calcium 9.1 mg/dL (8.4-10.2); Magnesium 1.9 mg/dL (1.6-2.3)
[2020-01-23] MEDS: POTASSIUM CHLORIDE ER 20 MEQ TAB.ER PO SCH ×4 (11:07→22:57)
[2020-01-23 11:45] LABS: Glucose,Whole Blood 164 mg/dL (75-99)
--- NOTE | 2020-01-23 12:05 | P.PN ---
Subjective Progress Note Date: 01/23/20 Is is an 84-year-old female patient with documented history of asthma, hypothyroidism, polymyalgia, who presented to the hospital with symptoms of shortness of breath. She's been diuresing well on IV Lasix, she was seen this morning and states that her breathing is improved significantly as has her lower extremity edema. She does not feel back to her normal, she still has some orthopnea. Her weight is down 0.5 kg today. Blood pressure 112/60 with a heart rate in the 90s, 94% on 2 L of oxygen. White blood cell count 16.5, hemoglobin 13.7, platelet count 240. Sodium 139, potassium 3.4, BUN 64, creatinine 1.3, magnesium 2.2. Chest x-ray showed diffuse interstitial pattern with bilateral pleural parenchymal changes. Left pleural infiltrate/effusion. She is currently on antibiotics. Echocardiogram with Doppler study revealed an ejection fraction of 55-60%, mild to moderate tricuspid regurg. 01/22/2020 Patient seen and examined this morning, feeling mildly better according to her. Blood pressure 142/60 with a heart rate of 9200, 94% on 2 L of oxygen. White blood cell count 13.9, hemoglobin 13.6, platelet count 276. Sodium 140, potassium 3.1, BUN 74, creatinine 1.3. 01/23/2020 Patient seen and examined this morning, feeling significantly better overall. She underwent an EGD which showed some diffuse gastritis and mild esophagitis, biopsies were sent. Blood pressure 136/70 with a heart rate in the 80s to 90s, 94% on 2 L of oxygen. Odium 144, potassium 3.0, BUN 70, creatinine 1.3, magnesium 1.9. Objective - Vital Signs Vital signs: Vital Signs Temp 98.0 F 01/23/20 05:15 Pulse 88 01/23/20 09:51 Resp 18 01/23/20 09:45 BP 136/72 01/23/20 09:08 Pulse Ox 94 L 01/23/20 09:08 Intake & Output 01/22/20 01/23/20 01/23/20 18:59 06:59 18:59 Intake Total 720 440 200 Output Total 1000 1350 Balance -280 -910 200 Weight 56.1 kg Intake: IV 200 Intake, IV Titration 200 Amount Piperacillin-Tazobactam 3 200 .375 gm In Sodium Chloride 0.9% 100 ml @ 25 mls/hr IVPB Q8HR [facility] Rx# :[id number] Oral 720 240 Output: Urine 600 1350 Urine/Stool Mix 400 Other: Voiding Method Bedside Commode Toilet - Exam GENERAL EXAM: Alert, active, very pleasant 84-year-old female patient, on 3 L nasal cannula, comfortable in no apparent distress. HEAD: Normocephalic. EYES: Normal reaction of pupils, equal size. NOSE: Clear with pink turbinates. THROAT: No erythema or exudates. NECK: No masses, no JVD. CHEST: No chest wall deformity. LUNGS: Lungs are clear to auscultation, fine crackles heard to the left base CVS: S1 and S2 normal with no audible murmur, regular rhythm. ABDOMEN: No hepatosplenomegaly, normal bowel sounds, no guarding or rigidity. SPINE: No scoliosis or deformity SKIN: No rashes CENTRAL NERVOUS SYSTEM: No focal deficits, tone is normal in all 4 extremities. EXTREMITIES: There is no peripheral edema. No clubbing, no cyanosis. Peripheral pulses are intact. - Labs CBC & Chem 7: 01/22/20 06:27 01/23/20 09:29 Labs: Abnormal Lab Results - Last 24 Hours (Table) 01/22/20 01/22/20 01/23/20 Range/Units 16:37 20:02 06:11 Potassium (3.5-5.1) mmol/L BUN (7-17) mg/dL Creatinine (0.52-1.04) mg/dL Glucose (74-99) mg/dL POC Glucose (mg/dL) 124 H 198 H 153 H (75-99) mg/dL 01/23/20 01/23/20 Range/Units 09:29 11:43 Potassium 3.0 L (3.5-5.1) mmol/L BUN 70 H (7-17) mg/dL Creatinine 1.34 H (0.52-1.04) mg/dL Glucose 211 H (74-99) mg/dL POC Glucose (mg/dL) 164 H (75-99) mg/dL Microbiology - Last 24 Hours (Table) 01/19/20 19:04 Blood Culture - Preliminary Blood No Growth after 72 hours Assessment and Plan Plan: Assessment and plan: 1 Acute hypoxic respiratory failure secondary to fluid volume overload and basilar pleural effusions left greater than right, secondary to diastolic conge stive heart failure, acute on chronic. Preserved left ventricular systolic function. 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 We'll make a follow-up appointment in the office post discharge. DNP note has been reviewed, I agree with a documented findings and plan of care. Patient was seen and examined.
--- NOTE | 2020-01-23 13:26 | P.PN ---
Subjective Progress Note Date: 01/23/20 Principal diagnosis: Left lower lobe infiltrate/effusion This is a very pleasant 84-year-old female patient who follows with Dr. Ralph as her primary care provider. She has a history of mild intermittent chronic bronchial asthma, hypothyroidism and polymyalgia rheumatica. She is a lifelong nonsmoker. 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 She had been having episodes of shortness of breath over the past 2 weeks. She was having trouble lying flat. She was having increased shortness of breath with minimal exertion. She had been seen and evaluated by her PCP who did order a chest x-ray. Based on the findings she was referred to the emergency room. Asked x-ray revealed diffuse interstitial pattern with bilateral consolidation and small effusion. She was hypoxic in the low 90s on 2 L/m per nasal cannula. White count 9.6. Creatinine 1.13. ProBNP 378. Troponin negative. She is seen today in consultation on the selective care unit. She is currently awake and alert in no acute distress. Maintaining O2 saturations in the low 90s on 3 L/m per nasal ca nnula.Echocardiogram reveals preserved preserved left ventricular systolic function with ejection fraction 55-60%. Mild to moderate pulmonary hypertension. No significant valvular disorder. He is currently on bronchodilators, IV Solu-Medrol, oral diuretics. His chest x-ray shows improvement in the fluid volume overload. There is still a small to moderate left pleural effusion and a tiny right pleural effusion. She is breathing easier today compared to yesterday. CoVID 19 screen pending. The patient is seen today 01/21/2020 in follow-up on the selective care unit. She is currently resting comfortably in bed. Awake and alert in no acute distress. No worsening shortness of breath, cough or congestion. Maintaining O2 saturations in the low 90s on 2 L/m per nasal cannula. She's afebrile. Hemodynamically stable. Blood culture reveals no growth to date. White count 16.5. Hemoglobin 13.7. Sodium 139. Potassium 3.4. Creatinine 1.32. Covid 19 screen was negative. She remains on bronchodilators and IV Solu-Medrol. Chest x-ray reveals diffuse interstitial pattern with bilateral pleural parenchymal changes. Left pleural infiltrate/effusion. Initiated on ceftriaxone and a zithromycin. Oral diuretics. Heparin for DVT prophylaxis. The patient is seen today 01/22/2020 in follow-up on the selective care unit. She is awake and alert in no acute distress. No worsening cough congestion. No worsening shortness of breath and she is maintaining good O2 saturations in the mid 90s on 2 L/m per nasal cannula. She remains afebrile. Computed tomography scan of the chest revealed underlying COPD. CHF exacerbation with mild cardiomegaly and small left greater than right bilateral pleural effusions along with mild interstitial edema bilaterally. Dilated fluid-filled esophagus up to 1.3 cm ovoid density in the gastroesophageal junction the liver diaphragmatic hiatus. GI services has been consulted. White count 13.9. Hemoglobin 13.6. Sodium 140. Potassium 3.1. Creatinine 1.33. She remains on ceftriaxone and azithromycin along with bronchodilators. Oral diuretics. The patient was seen today 01/23/2020 in follow-up on the selective care unit. She is currently resting comfortably in bed. Awake and alert in no acute distress. Maintaining O2 saturations in the 90s on 2 L/m per nasal cannula. Blood culture reveals no growth. Sodium 134. Potassium 3.0. Creatinine 1.34. She remains on bronchodilators, antibiotics, oral diuretics. She did undergo E GD this morning which revealed thickened folds with nodularity of the mucosa involving the fundus and cardia in the body of the stomach with poor distensibility suggestive of diffuse gastritis status post multiple biopsies to rule out infiltrating neoplasm. Mild esophagitis. Objective - Vital Signs Vital signs: Vital Signs Temp 98.0 F 01/23/20 05:15 Pulse 60 01/23/20 13:12 Resp 18 01/23/20 09:45 BP 136/72 01/23/20 09:08 Pulse Ox 94 L 01/23/20 09:08 Intake & Output 01/22/20 01/23/20 01/23/20 18:59 06:59 18:59 Intake Total 720 440 200 Output Total 1000 1350 Balance -280 -910 200 Weight 56.1 kg Intake: IV 200 Intake, IV Titration 200 Amount Piperacillin-Tazobactam 3 200 .375 gm In Sodium Chloride 0.9% 100 ml @ 25 mls/hr IVPB Q8HR [facility] Rx# :[id number] Oral 720 240 Output: Urine 600 1350 Urine/Stool Mix 400 Other: Voiding Method Bedside Commode Toilet - Exam GENERAL EXAM: Alert, active, very pleasant 84-year-old female patient, on 2 L nasal cannula, comfortable in no apparent distress. HEAD: Normocephalic. EYES: Normal reaction of pupils, equal size. NOSE: Clear with pink turbinates. THROAT: No erythema or exudates. NECK: No masses, no JVD. CHEST: No chest wall deformity. LUNGS: Equal air entry with basilar crackles left greater than right. CVS: S1 and S2 normal with no audible murmur, regular rhythm. ABDOMEN: No hepatosplenomegaly, normal bowel sounds, no guarding or rigidity. SPINE: No scoliosis or deformity SKIN: No rashes CENTRAL NERVOUS SYSTEM: No focal deficits, tone is normal in all 4 extremities. EXTREMITIES: There is no peripheral edema. No clubbing, no cyanosis. Peripheral pulses are intact. - Labs CBC & Chem 7: 01/22/20 06:01/23/20 09:29 Labs: Abnormal Lab Results - Last 24 Hours (Table) 01/22/20 01/22/20 01/23/20 Range/Units 16:37 20:02 06:11 Potassium (3.5-5.1) mmol/L BUN (7-17) mg/dL Creatinine (0.52-1.04) mg/dL Glucose (74-99) mg/dL POC Glucose (mg/dL) 124 H 198 H 153 H (75-99) mg/dL 01/23/20 01/23/20 Range/Units 09:29 11:43 Potassium 3.0 L (3.5-5.1) mmol/L BUN 70 H (7-17) mg/dL Creatinine 1.34 H (0.52-1.04) mg/dL Glucose 211 H (74-99) mg/dL POC Glucose (mg/dL) 164 H (75-99) mg/dL Microbiology - Last 24 Hours (Table) 01/19/20 19:04 Blood Culture - Preliminary Blood No Growth after 72 hours Assessment and Plan Assessment: 1 Acute hypoxic respiratory failure secondary to fluid volume overload and basilar pleural effusions left greater than right possibly secondary to diast olic congestive heart failure. Preserved left ventricular systolic function. Possible aspiration due to dilated esophagus and retained fluid/blood product. EGD today revealed thickened folds with nodularity of the medical's involving the fundus and cardia in the body of the stomach with poor distensibility suggestive of diffuse gastritis, status post multiple biopsies to rule out infiltrating neoplasm. Mild esophagitis. 2 Acute exacerbation of mild intermittent chronic bronchial asthma 3 Dilated fluid-filled esophagus up to 1.3 cm ovoid density at the gastroesophageal junction of the liver diaphragmatic hiatus. Cannot exclude obstructing digested food product or foreign body. EGD ending. 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 Kwon EGD reviewed Continue antibiotics, Continue bronchodilators and IV Solu-Medrol Titrate down the FiO2 as tolerated Repeat chest x-ray in a.m. We'll continue to follow and make further recommendations based on her clinical status I, the cosigning physician, performed a history & physical examination of the patient. Lungs sounds with crackles in the posterior bases, left greater than right. Maintaining good O2 saturations in the 90s on 2 L/m per nasal cannula. I discussed the assessment and plan of care with my nurse practitioner, Bernie Wing. I attest to the above note as dictated by her.
[2020-01-23 16:19] LABS: Glucose,Whole Blood 172 mg/dL (75-99)
[2020-01-23 20:45] LABS: Glucose,Whole Blood 119 mg/dL (75-99)
--- NOTE | 2020-01-23 22:32 | PN ---
PROGRESS NOTE DATE OF SERVICE: 01/23/2020 This 84-year-old woman who was admitted with significant bilateral pneumonia, CHF, also had abnormalities on the CAT scan. The patient underwent EGD with biopsy by Dr. Dias today. EGD showed thickened folds with nodularity of the mucosa involving the fundus and cardia and the body of the stomach as well as suggestive of diffuse gastritis. Multiple biopsies were done to rule out infiltrative neoplasm. Mild esophagitis also noted. Patient closely monitored. The patient is on broad- spectrum IV antibiotics and Lasix. Patient also had renal failure. Multiple consultants are following the patient closely. Past medical history reviewed. REVIEW OF SYSTEMS: CARDIO system: As mentions earlier. RESPIRATORY as mentioned earlier. GI no nausea or vomiting. no dysuria. NERVOUS SYSTEM: No numbness or weakness. Current medications are reviewed and include: Tylenol 500 mg q.6 p.r.n., [place] 5 mg, DuoNeb q.i.d. and p.r.n., Xanax 0.5 t.i.d., Zithromax 500 mg, Lasix 40 mg p.o. b.i.d., heparin, NovoLog, Solu-Medrol 40 IV q.8h, Lopressor, Narcan, Protonix, Zosyn 3.75 IV q.8. PHYSICAL EXAMINATION: Patient is alert and oriented times three. Pulse 84. Blood pressure 129/72, respirations 20, temperature 97.4, pulse ox 98% on room air. HEENT: Conjunctivae normal. NECK: No JVD. CARDIOVASCULAR: S1, S2 muffled. RESPIRATIONS: Breath sounds diminished at the bases. Bilateral scattered rhonchi and crackles. ABDOMEN: Soft, nontender. LEGS are no edema. No swelling. NERVOUS SYSTEM: No focal deficits. LABS: WBC 13.9, sodium 140, potassium 3.1, creatinine is 1.34, which is stable. UA noted. The cultures are negative so far. ASSESSMENT: 1. Shortness of breath, possibly congestive heart failure acute exacerbation with acute on chronic diastolic dysfunction ejection fraction 55-60 percent, present on admission. 2. Bilateral aspiration pneumonia, possibly. 3. Thickened folds with nodularity of the mucosa involving the fundus and cardia and body of the stomach with diffuse gastritis status post multiple biopsies to rule out the possibility of infiltrating neoplasm. 4. Fluid-filled esophagus, rule out esophageal stricture or malignancy. 5. Mild to moderate tricuspid regurgitation with [id number] pulmonary hypertension and small generalized pericardial effusion on the 2D echo. 6. Chronic intermittent bronchial asthma, acute exacerbation. 7. Possible chronic obstructive pulmonary disease. 8. Increased creatinine with possible mild acute renal failure with acute tubular necrosis and prerenal factors, present on admission. 9. History of asthma. 10.History of hypothyroidism. 11.History of polymyalgia rheumatica. 12.History of tonsillectomy. 13.History of kidney donation. 14.Hypokalemia. 15.CT scan of the chest showing bilateral pleural effusion. 16.Increased WBC. 17.Possibly mild acute urinary tract infection present on admission. 18.FULL CODE. RECOMMENDATIONS AND DISCUSSION: Recommend to continue current medications. Continue with symptomatic treatment. We will taper the steroids further. Continue with broad-spectrum IV antibiotics and continue with p.o. diuresis and I would also recommend a chest x-ray to evaluate the fluid balance in the morning. Overall prognosis guarded because of multiple complex medical issues. We will follow with multiple consultants and guarded prognosis. Further recommendations to follow. MMODL / IJN: [id number] / MTDD
[2020-01-24 07:02] LABS: Glucose,Whole Blood 130 mg/dL (75-99)
[2020-01-24] MEDS: METOPROLOL TARTRATE 25 MG TAB PO SCH ×2 (08:30→20:56)
[2020-01-24] MEDS: PIPERACILLIN-TAZOBACTAM 3.375 GM in SODIUM CHLORIDE 0.9% 100 ML IVPB SCH ×3 (08:30→23:52)
[2020-01-24] MEDS: FUROSEMIDE 40 MG TAB PO SCH ×2 (08:30→15:46)
[2020-01-24] MEDS: methylPREDNISolone SOD SUCCI 40 MG/ML 1 ML VIAL IV SCH ×2 (08:30→20:58)
[2020-01-24] MEDS: THYROID, PORK 30 MG TAB PO SCH (08:30)
[2020-01-24] MEDS: PANTOPRAZOLE 40 MG/10 ML VIAL IVP SCH ×2 (08:30→20:57)
[2020-01-24] MEDS: HEPARIN SODIUM,PORCINE 5,000 UNIT/ML 1 ML VIAL SQ SCH ×2 (08:30→20:57)
[2020-01-24] MEDS: AZITHROMYCIN 500 MG TAB PO SCH (08:30)
[2020-01-24] MEDS: INSULIN ASPART (NovoLOG) 100 UNIT/ML VIAL SQ SCH ×4 (08:31→20:57)
--- NOTE | 2020-01-24 09:22 | XR ---
EXAMINATION TYPE: XR chest 2V DATE OF EXAM: 01/24/2020 HISTORY: FU pneumonia. REFERENCE: Previous study dated 01/21/2020. FINDINGS: There are bilateral infiltrates. Similar appearance to the previous study. There is increas ed interstitial markings which are also unchanged. These may BE acute or chronic. If chronic it could represent fibrosis. If more acutely may represent congestive heart failure. There is a left-sided ef fusion. The heart is not appear enlarged. IMPRESSION: NO SIGNIFICANT INTERVAL CHANGE IN APPEARANCE OF THE CHEST.
[2020-01-24] MEDS: IPRATROPIUM-ALBUTEROL 3 ML NEB INHALATION SCH ×4 (11:04→19:47)
[2020-01-24 11:08] LABS: Glucose,Whole Blood 155 mg/dL (75-99)
--- NOTE | 2020-01-24 12:04 | P.PN ---
Subjective Progress Note Date: 01/24/20 On 01/24/2020, the patient is on accommodation Zosyn and Zithromax for suspected aspiration. The patient had a repeat chest x-ray that shows stable findings without any major interval change. EGD was done and showed diffuse gastritis and multiple biopsies were obtained and results are still pending and the patient some mild esophagitis. She is currently on 2 L of oxygen by nasal cannula with pulse ox of 93%. No significant hypoxemia. No significant fever or hemodynamic instability. Objective - Vital Signs Vital signs: Vital Signs Temp 98.1 F 01/24/20 05:00 Pulse 62 01/24/20 11:16 Resp 18 01/24/20 05:00 BP 145/74 01/24/20 05:00 Pulse Ox 93 L 01/24/20 05:00 Intake & Output 01/23/20 01/24/20 01/24/20 18:59 06:59 18:59 Intake Total 1160 1102 Output Total 900 Balance 1160 202 Weight 60.5 kg Intake: IV 200 Intake, IV Titration 200 Amount Piperacillin-Tazobactam 3 200 .375 gm In Sodium Chloride 0.9% 100 ml @ 25 mls/hr IVPB Q8HR [facility] Rx# :[id number] Oral 960 902 Output: Urine 900 Other: Voiding Method Toilet Toilet # Voids 2 1 # Bowel Movements 1 - Exam GENERAL EXAM: Alert, active, very pleasant 84-year-old female patient, on 2 L nasal cannula, comfortable in no apparent distress. HEAD: Normocephalic. EYES: Normal reaction of pupils, equal size. NOSE: Clear with pink turbinates. THROAT: No erythema or exudates. NECK: No masses, no JVD. CHEST: No chest wall deformity. LUNGS: Equal air entry with basilar crackles left greater than right. CVS: S1 and S2 normal with no audible murmur, regular rhythm. ABDOMEN: No hepatosplenomegaly, normal bowel sounds, no guarding or rigidity. SPINE: No scoliosis or deformity SKIN: No rashes CENTRAL NERVOUS SYSTEM: No focal deficits, tone is normal in all 4 extremities. EXTREMITIES: There is no peripheral edema. No clubbing, no cyanosis. Peripheral pulses are intact. - Labs CBC & Chem 7: 01/22/20 06:01/24/20 06:00 Labs: Abnormal Lab Results - Last 24 Hours (Table) 01/23/20 01/23/20 01/23/20 Range/Units 16:16 16:44 20:40 Potassium 3.1 L (3.5-5.1) mmol/L POC Glucose (mg/dL) 172 H 119 H (75-99) mg/dL 01/24/20 01/24/20 01/24/20 Range/Units 06:00 07:00 11:06 Potassium 3.3 L (3.5-5.1) mmol/L POC Glucose (mg/dL) 130 H 155 H (75-99) mg/dL Microbiology - Last 24 Hours (Table) 01/19/20 19:04 Blood Culture - Preliminary Blood No Growth after 96 hours Assessment and Plan Plan: 1 Acute hypoxic respiratory failure secondary to fluid volume overload and basilar pleural effusions left greater than right possibly secondary to diastolic congestive heart failure. Preserved left ventricular systolic fu nction. Possible aspiration due to dilated esophagus and retained fluid/blood product. EGD today revealed thickened folds with nodularity of the medical's involving the fundus and cardia in the body of the stomach with poor distensibility suggestive of diffuse gastritis, status post multiple biopsies to rule out infiltrating neoplasm. Mild esophagitis. 2 Acute exacerbation of mild intermittent chronic bronchial asthma 3 Dilated fluid-filled esophagus up to 1.3 cm ovoid density at the gastro esophageal junction of the liver diaphragmatic hiatus. Cannot exclude obstructing digested food product or foreign body. EGD ending. 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
[2020-01-24] MEDS: POTASSIUM BICARBONATE/CIT AC 20 MEQ TABLET.EFF PO SCH ×2 (12:20→13:24)
--- NOTE | 2020-01-24 14:27 | PN ---
PROGRESS NOTE DATE OF SERVICE: 01/24/2020 The patient is an 84-year-old pleasant white female who underwent an upper endoscopy as a part of evaluation of abnormal CT scan. Upper endoscopy revealed poor distensibility of the stomach, especially in the body of the stomach where there were multiple thickened folds with some nodularity noted, but no masses identified. Multiple biopsies were done to rule out infiltrating neoplasm and biopsies are still pending. On further questioning, the patient states that she has been having some early satiety lately. She feels full easily. She lost about 30 pounds in April of last year, but she does not think that her appetite has decreased. PHYSICAL EXAMINATION: She appears comfortable. No apparent distress. Vital signs stable. Blood pressure is 149/81, pulse 57, temperature 98.5. HEENT examination unremarkable. Conjunctivae pink. Sclerae anicteric. Oral cavity no lesions. NECK no JVD or lymph node enlargement. Chest clear to auscultation. HEART: Regular rate and rhythm. ABDOMEN: Soft. Bowel sounds are positive. No organomegaly. EXTREMITIES: No pedal edema. SKIN no rashes. NEUROLOGIC: Alert and oriented x3. No focal deficits. No labs available from today. She did have a chest x-ray this morning which once again showed bilateral infiltrates. IMPRESSION: 1. Pneumonia for which she is on broad-spectrum antibiotics. Dr. Kwon following the patient closely. 2. Abdominal CT of the abdomen/chest that showed dilated esophagus. The patient did undergo an upper endoscopy yesterday that showed some esophagitis. No esophageal stricture, but there was thickened folds in the proximal body of the stomach as well as the cardia with nodularity and multiple biopsies were done to rule out neoplasm. However, no masses were identified. 3. Acute kidney injury, which is gradually improving. 4. History of polymyalgia rheumatica on prednisone. 5. History of hypothyroidism. RECOMMENDATIONS: 1. Continue with broad-spectrum antibiotics. 2. Symptomatic supportive care. 3. Await biopsy results from upper endoscopy from yesterday. 4. I had a lengthy discussion with the patient regarding findings of EGD. I would be happy to await biopsy results before further recommendations can be made. Thank you for this consultation. MMODL / IJN: [id number] /
--- NOTE | 2020-01-24 16:09 | PN ---
PROGRESS NOTE Elizabeth is an 84-year-old lady who is admitted to hospital with congestive heart failure exacerbation secondary to diastolic heart failure. She is feeling better today. Denies chest pain or difficulty in breathing. On exam, vital signs are stable. Chest exam reveals good air entry bilaterally without any crackles or rhonchi. Heart exam reveals first and second heart sounds. No gallop. Exam of extremities did not reveal any edema. Peripheral pulses are felt Labs show a hemoglobin of 13.6, platelet count is 276. The patient is currently on Lasix 40 b.i.d. Lopressor 25 b.i.d. ASSESSMENT: Acute exacerbation of chronic diastolic heart failure. Patient is doing fairly well. Continue current medications. We will see the patient on an as-needed basis. MMODL / IJN: [id number] /
[2020-01-24 16:45] LABS: Glucose,Whole Blood 182 mg/dL (75-99)
[2020-01-24 19:32] LABS: Glucose,Whole Blood 170 mg/dL (75-99)
[2020-01-24] MEDS: ALPRAZolam 0.25 MG TAB PO PRN (20:56)
--- NOTE | 2020-01-25 03:00 | PN ---
PROGRESS NOTE DATE OF SERVICE: 01/24/2020 This 84-year-old woman was admitted with bilateral lung lesions, being evaluated at this time. Patient also had EGD. No chest pain. No palpitations. No fever. The chest x-ray which was reviewed personally by me showed not much changed at this time. The patient has some abdominal discomfort today. PHYSICAL EXAMINATION: On exam, alert and oriented x3. Pulse is 57, blood pressure 149/81, respiration 18, temperature 98.5, pulse ox 93% on 3 L. HEENT: Conjunctivae normal. NECK: No jugular venous distention. CARDIOVASCULAR: S1, S2 muffled. RESPIRATORY: Breath sounds diminished at the bases. A few scattered rhonchi. ABDOMEN: Soft, nontender. NERVOUS SYSTEM: No focal deficits. LABS: Potassium 3.9. WBC 13.9. ASSESSMENT: 1. Shortness of breath, possibly congestive heart failure acute exacerbation with acute on chronic diastolic dysfunction ejection fraction 55% to 60%, present on admission. 2. Bilateral aspiration pneumonia, likely. 3. Thickened folds with nodularity of the mucosa involving the fundus and cardiac body of the stomach with diffuse gastritis status post multiple biopsies to rule out the possibility of infiltrating neoplasm. 4. Fluid-filled esophagus. Rule out esophageal stricture or malignancy on the CT scan. 5. Mild to moderate tricuspid regurgitation, mild to moderate pulmonary hypertension and small generalized pericardial effusion on the 2D echo. 6. Chronic intermittent bronchial asthma, acute exacerbation. 7. Possible chronic obstructive pulmonary disease. 8. Increased creatinine with possible mild acute renal failure with acute tubular necrosis with prerenal factors, present on admission. 9. History of asthma. 10.History of hypothyroidism. 11.History of polymyalgia rheumatica. 12.History of tonsillectomy. 13.History of kidney donation. 14.Hypokalemia. 15.CT scan of the chest showing bilateral pleural effusion. 16.Increased WBC. 17.Possible mild acute urinary tract infection present on admission. 18.FULL CODE. RECOMMENDATIONS AND DISCUSSION: Recommend to continue symptomatic treatment, continue with current medications. Otherwise, monitor closely with Pulmonary, GI and Cardiology. The patient is on p.o. Lasix. We will monitor the creatinine very closely. Otherwise, await biopsy report. Prognosis guarded. Further recommendations to follow. MMODL / IJN: [id number] /
[2020-01-25 06:47] LABS: Basophils % (A) 0 %; Eosinophils % (A) 0 %; HCT 44.3 % (34.0-46.0); HGB 14.5 gm/dL (11.4-16.0); Lymphocytes % (A) 8 %; MCH 30.6 pg (25.0-35.0); MCHC 32.6 g/dL (31.0-37.0); MCV 93.7 fL (80.0-100.0); Mean Platelet Volume 7.7; Monocytes # (A) 0.6 k/uL (0-1.0); Monocytes % (A) 4 %; Neutrophils # (A) 11.9 k/uL (1.3-7.7); Neutrophils % (A) 88 %; Platelet Count 239 k/uL (150-450); RBC 4.73 m/uL (3.80-5.40); RDW 12.8 % (11.5-15.5); WBC 13.6 k/uL (3.8-10.6)
[2020-01-25 07:02] LABS: Glucose,Whole Blood 154 mg/dL (75-99)
[2020-01-25 07:02] LABS: Calcium 9.2 mg/dL (8.4-10.2); Potassium 3.6 mmol/L (3.5-5.1)
[2020-01-25] MEDS: IPRATROPIUM-ALBUTEROL 3 ML NEB INHALATION SCH ×4 (07:14→20:04)
[2020-01-25] MEDS: INSULIN ASPART (NovoLOG) 100 UNIT/ML VIAL SQ SCH ×4 (08:10→20:09)
[2020-01-25] MEDS: THYROID, PORK 30 MG TAB PO SCH (08:11)
[2020-01-25] MEDS: AZITHROMYCIN 500 MG TAB PO SCH (08:12)
[2020-01-25] MEDS: HEPARIN SODIUM,PORCINE 5,000 UNIT/ML 1 ML VIAL SQ SCH ×2 (08:12→20:09)
[2020-01-25] MEDS: PANTOPRAZOLE 40 MG/10 ML VIAL IVP SCH (08:12)
[2020-01-25] MEDS: FUROSEMIDE 40 MG TAB PO SCH ×2 (08:12→16:53)
[2020-01-25] MEDS: METOPROLOL TARTRATE 25 MG TAB PO SCH ×2 (08:12→20:10)
[2020-01-25] MEDS: PIPERACILLIN-TAZOBACTAM 3.375 GM in SODIUM CHLORIDE 0.9% 100 ML IVPB SCH ×2 (08:12→16:53)
[2020-01-25] MEDS: methylPREDNISolone SOD SUCCI 40 MG/ML 1 ML VIAL IV SCH ×2 (08:12→20:10)
[2020-01-25 11:02] LABS: Glucose,Whole Blood 109 mg/dL (75-99)
[2020-01-25] MEDS ORDERED: POTASSIUM BICARBONATE/CIT AC 20 MEQ TABLET.EFF PO SCH (12:00)
--- NOTE | 2020-01-25 12:46 | P.PN ---
Subjective Progress Note Date: 01/25/20 Principal diagnosis: Left lower lobe infiltrate and left lower lobe pleural effusion On 01/25/2020 patient seen in follow-up on oncology floor. Awake and alert, in no acute distress, she is currently on 3 L of oxygen with a pulse ox of 94%, she's been afebrile, hemodynamically stable, occasional cough, occasional dyspnea with exertion, but no acute distress, overall improving. Last chest x- ray from 01/24/2020 showed no significant interval change, increased interstitial markings, bilateral infiltrates left greater than right and left pleural effusion. Patient continues on oral Lasix 40 mg twice daily, antibiotic coverage is with Zithromax and Zosyn for possibility of aspiration related pneumonia. Today's labs have been reviewed, showing white blood cell count stab le at 13.6, hemoglobin is 14.5, electrolytes were within normal limits, and renal profile slightly improved with BUN down to 64 and creatinine is 1.27. Objective - Vital Signs Vital signs: Vital Signs Temp 98.3 F 01/25/20 11:16 Pulse 90 01/25/20 11:16 Resp 18 01/25/20 11:16 BP 122/83 01/25/20 11:16 Pulse Ox 94 L 01/25/20 11:16 Intake & Output 01/24/20 01/25/20 01/25/20 18:59 06:59 18:59 Intake Total 200 Balance 200 Weight 59 kg 59 kg Intake: Intake, IV Titration 200 Amount Piperacillin-Tazobactam 3 200 .375 gm In Sodium Chloride 0.9% 100 ml @ 25 mls/hr IVPB Q8HR [facility] Rx# :[id number] Other: Voiding Method Toilet Bedside Commode Bedside Commode # Voids 2 1 # Bowel Movements 1 2 - Exam GENERAL EXAM: Alert, very pleasant, 85-year-old white female on 3 L of oxygen a pulse ox of 94% comfortable in no apparent distress. HEAD: Normocephalic/atraumatic. EYES: Normal reaction of pupils, equal size. Conjunctiva pink, sclera white. NOSE: Clear with pink turbinates. THROAT: No erythema or exudates. NECK: No masses, no JVD, no thyroid enlargement, no adenopathy. CHEST: No chest wall deformity. Symmetrical expansion. LUNGS: Diminished breath sounds at the left lower base CVS: Regular rate and rhythm, normal S1 and S2, no gallops, no murmurs, no rubs ABDOMEN: Soft, nontender. No hepatosplenomegaly, normal bowel sounds, no guarding or rigidity. EXTREMITIES: No clubbing, no edema, no cyanosis, 2+ pulses and upper and lower extremities. MUSCULOSKELETAL: Muscle strength and tone normal. SPINE: No scoliosis or deformity SKIN: No rashes CENTRAL NERVOUS SYSTEM: Alert and oriented -3. No focal deficits, tone is normal in all 4 extremities. PSYCHIATRIC: Alert and oriented -3. Appropriate affect. Intact judgment and insight. - Labs CBC & Chem 7: 01/25/20 05:43 01/25/20 05:43 Labs: Abnormal Lab Results - Last 24 Hours (Table) 01/24/20 01/24/20 01/25/20 Range/Units 16:44 19:30 05:43 WBC (3.8-10.6) k/uL Neutrophils # (1.3-7.7) k/uL BUN 64 H (7-17) mg/dL Creatinine 1.27 H (0.52-1.04) mg/dL Glucose 121 H (74-99) mg/dL POC Glucose (mg/dL) 182 H 170 H (75-99) mg/dL 01/25/20 01/25/20 01/25/20 Range/Units 05:43 06:58 10:59 WBC 13.6 H (3.8-10.6) k/uL Neutrophils # 11.9 H (1.3-7.7) k/uL BUN (7-17) mg/dL Creatinine (0.52-1.04) mg/dL Glucose (74-99) mg/dL POC Glucose (mg/dL) 154 H 109 H (75-99) mg/dL Microbiology - Last 24 Hours (Table) 01/19/20 19:04 Blood Culture - Preliminary Blood No Growth after 120 hours Assessment and Plan Plan: 1 Acute hypoxic respiratory failure secondary to fluid volume overload and basilar pleural effusions left greater than right possibly secondary to diastolic congestive heart failure. Preserved left ventricular systolic function. Possible aspiration due to dilated esophagus and retained fluid/blood product. EGD today revealed thickened folds with nodularity of the medical's involving the fundus and cardia in the body of the stomach with poor distensibility suggestive of diffuse gastritis, status post multiple biopsies to rule out infiltrating neoplasm. Mild esophagitis. 2 Acute exacerbation of mild intermittent chronic bronchial asthma 3 Dilated fluid-filled esophagus up to 1.3 cm ovoid density at the gastroesophageal junction of the liver diaphragmatic hiatus. Cannot exclude obstructing digested food product or foreign body. EGD ending. 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 I performed a history & physical examination of the patient and discussed their management with my nurse practitioner, Tara Ledesma. I reviewed the nurse practitioner's note and agree with the documented findings and plan of care. Lung sounds are positive for diminished breath sounds at the left base. The findings and the impression was discussed with the patient. I attest to the documentation by the nurse practitioner. Time with Patient: Less than 30
--- NOTE | 2020-01-25 14:02 | US ---
EXAMINATION TYPE: US chest DATE OF EXAM: 01/25/2020 COMPARISON: CLINICAL HISTORY: Markings for thoracentesis by pulmonary staff. TECHNIQUE: Targeted ultrasound of the posterior lower bilateral hemithoraces EXAM MEASUREMENTS: Right Pleural Effusion pocket size: 2.2 cm Left Pleural Effusion pocket size: 6.1 cm Left skin surface to fluid distance: 1.6 cm Right side NOT marked for possible thoracentesis outside the dept due to small clear fluid pocket. Left side marked for possible thoracentesis outside the dept. Internal echoes visualized within. Pulmonologists are able to review the images in the patient?s EMR. IMPRESSIONS: Bilateral pleural effusion
[2020-01-25 17:05] LABS: Glucose,Whole Blood 136 mg/dL (75-99)
[2020-01-25 20:06] LABS: Glucose,Whole Blood 176 mg/dL (75-99)
[2020-01-25] MEDS: PANTOPRAZOLE 40 MG TABLET PO SCH (20:10)
[2020-01-25] MEDS: ALPRAZolam 0.25 MG TAB PO PRN (23:02)
[2020-01-26] MEDS: PIPERACILLIN-TAZOBACTAM 3.375 GM in SODIUM CHLORIDE 0.9% 100 ML IVPB SCH ×3 (00:22→16:00)
--- NOTE | 2020-01-26 05:20 | P.PN ---
Subjective Progress Note Date: 01/25/20 Principal diagnosis: This is an 85 year old female who was recently admitted with bilateral lung lesions and is being closely monitored. Patient recently underwent EGD with GI and multiple biopsies obtained and currently awaiting results. Patient is being evaluated and followed my multiple medical consultants. Pulmonary following as well and patient underwent chest ultrasound for possible Left pleural effusion thoracentesis. Patient continues to have shortness of breath and is maintained on 3L of 02 via NC and oral lasix 40 mg twice daily. Patient continues to be quite fatigued. Patient is maintained on Zithromax and Zosyn and will continue at this time. Creatinine slowly trending down and is currently 1.27. Will repeat am labs. Review of systems: Constitutional: Reports fatigue, no reports of fevers or chills Cardiovascular: No reports of chest pain or palpitations Respiratory: Reports shortness of breath, denies cough GI: no reports of nausea, vomiting, or diarrhea : no reports of dysuria or retention Neurovascular: no reports of numbness, reports some weakness Active Medications Acetaminophen (Tylenol Tab) 500 mg PO Q6HR PRN PRN Reason: Fever and/ or Pain Hydrocodone Bitart/Acetaminophen ([place] 5-325) 1 each PO QID PRN PRN Reason: Pain Albuterol/Ipratropium (Duoneb 0.5 Mg-3 Mg/3 Ml Soln) 3 ml INHALATION RT-QID [facility] Last Admin: 01/25/20 20:04 Dose: 3 ml Documented by: Albuterol/Ipratropium (Duoneb 0.5 Mg-3 Mg/3 Ml Soln) 3 ml INHALATION RT-Q2H PRN PRN Reason: Shortness Of Breath Or Wheezing Alprazolam (Xanax) 0.25 mg PO TID PRN PRN Reason: Anxiety Last Admin: 01/24/20 20:56 Dose: 0.25 mg Documented by: Azithromycin (Zithromax) 500 mg PO DAILY [facility] Last Admin: 01/25/20 08:12 Dose: 500 mg Documented by: Furosemide (Lasix) 40 mg PO BID@0900,1600 [facility] Last Admin: 01/25/20 16:53 Dose: 40 mg Documented by: Heparin Sodium (Porcine) (Heparin) 5,000 unit SQ Q12HR [facility] Last Admin: 01/25/20 20:09 Dose: 5,000 unit Documented by: Piperacillin Sod/Tazobactam (Sod 3.375 gm/ Sodium Chloride) 100 mls @ 25 mls/hr IVPB Q8HR [facility] Last Admin: 01/25/20 16:53 Dose: 25 mls/hr Documented by: Insulin Aspart (Novolog) 0 unit SQ ACHS [facility]; Protocol Last Admin: 01/25/20 20:09 Dose: 4 unit Documented by: Methylprednisolone Sodium Succinate (Solu-Medrol) 40 mg IV BID [facility] Last Admin: 01/25/20 20:10 Dose: 40 mg Documented by: Metoprolol Tartrate (Lopressor) 25 mg PO BID [facility] Last Admin: 01/25/20 20:10 Dose: 25 mg Documented by: Miscellaneous Information (Magnesium Per Protocol) 1 each MISCELLANE DAILY PRN; Protocol PRN Reason: Per Protocol Miscellaneous Information (Potassium Per Protocol) 1 each MISCELLANE DAILY PRN; Protocol PRN Reason: Per Protocol Naloxone HCl (Narcan) 0.2 mg IV Q2M PRN PRN Reason: Opioid Reversal Pantoprazole Sodium (Protonix) 40 mg PO BID [facility] Last Admin: 01/25/20 20:10 Dose: 40 mg Documented by: Thyroid ([place] Thyroid) 90 mg PO DAILY@0800 [facility] Last Admin: 01/25/20 08:11 Dose: 90 mg Documented by: Objective - Vital Signs Vital signs: Vital Signs Temp 98.3 F 01/25/20 11:16 Pulse 90 01/25/20 11:16 Resp 18 01/25/20 11:16 BP 122/83 01/25/20 11:16 Pulse Ox 94 L 01/25/20 11:16 Intake & Output 01/24/20 01/25/20 01/25/20 18:59 06:59 18:59 Intake Total 200 Balance 200 Weight 59 kg 59 kg Intake: Intake, IV Titration 200 Amount Piperacillin-Tazobactam 3 200 .375 gm In Sodium Chloride 0.9% 100 ml @ 25 mls/hr IVPB Q8HR [facility] Rx# :[id number] Other: Voiding Method Toilet Bedside Commode Bedside Commode # Voids 2 1 # Bowel Movements 1 2 - Exam Gen: This is a 85-year-old female sitting up in bed, awake, alert and oriented 3, well-developed, well-nourished. Temp is 98.2F, pulse is 82, respirations are 20, blood pressure is 151/77, oxygen saturation is 94% on 3 L via nasal cannula HEENT: Head is atraumatic, normocephalic. Pupils equal, round. Sclerae is anicteric. NECK: Supple. No JVD. No lymphadenopathy. No thyromegaly. LUNGS: diminished breath sounds bilaterally with a few scattered rhonchi noted. No intercostal retractions. HEART: S1, S2 are muffled ABDOMEN: Soft. Bowel sounds are present. No masses. No tenderness. EXTREMITIES: No pedal edema. No calf tenderness. NEUROLOGICAL: Patient is awake, alert and oriented x3. Cranial nerves 2 through 12 are grossly intact. - Labs CBC & Chem 7: 01/25/20 05:43 01/25/20 05:43 Labs: Abnormal Lab Results - Last 24 Hours (Table) 01/24/20 01/24/20 01/25/20 Range/Units 16:44 19:30 05:43 WBC (3.8-10.6) k/uL Neutrophils # (1.3-7.7) k/uL BUN 64 H (7-17) mg/dL Creatinine 1.27 H (0.52-1.04) mg/dL Glucose 121 H (74-99) mg/dL POC Glucose (mg/dL) 182 H 170 H (75-99) mg/dL 01/25/20 01/25/20 01/25/20 Range/Units 05:43 06:58 10:59 WBC 13.6 H (3.8-10.6) k/uL Neutrophils # 11.9 H (1.3-7.7) k/uL BUN (7-17) mg/dL Creatinine (0.52-1.04) mg/dL Glucose (74-99) mg/dL POC Glucose (mg/dL) 154 H 109 H (75-99) mg/dL Microbiology - Last 24 Hours (Table) 01/19/20 19:04 Blood Culture - Preliminary Blood No Growth after 120 hours Assessment and Plan Assessment: Shortness of breath, possibly congestive heart failure acute exacerbation with acute on chronic diastolic dysfunction, ejection fraction 55-60%, present on admission Bilateral aspiration pneumonia, likely Thickened folds with nodularity of the mucosa involving the fundus and cardiac body of the stomach with diffuse gastritis status post multiple biopsies to rule out the possibility of an infiltrating neoplasm Fluid-filled esophagus. Rule out esophageal stricture or malignancy on the computed tomography scan Chronic intermittent bronchial asthma, acute exacerbation Mild to moderate tricuspid regurgitation, mild to moderate pulmonary hypertension and small generalized pericardial effusion on the 2-D echo Increased creatinine with possible mild acute renal failure with acute tubular necrosis with prerenal factors, present on admission History of asthma History of hypothyroidism history of polymyalgia rheumatica Possible chronic obstructive pulmonary disease History of tonsillectomy History of kidney donation Hypokalemia Computed tomography scan of the chest showing bilateral pleural effusion Increased WBC Possible mild acute urinary tract infection, present on admission Full code Recommendations and discussion: Recommend to continue current medications, management, and symptomatic treatment. Patient underwent chest ultrasound showing bilateral pleural effusions with the left pocket size measuring 6.1cm and marked for thoracentesis. Pullmonary to perform possibly tomorrow. Continue on antibiotics. Continue with oral lasix along with bronchodilators at this time. Increase activity as tolerated. Will continue to monitor labs and vitals closely. Awaiting biopsy report. Further recommendations to follow. Prognosis is guarded.
[2020-01-26] MEDS: IPRATROPIUM-ALBUTEROL 3 ML NEB INHALATION SCH ×4 (07:04→19:06)
[2020-01-26 07:09] LABS: Glucose,Whole Blood 115 mg/dL (75-99)
[2020-01-26] MEDS: methylPREDNISolone SOD SUCCI 40 MG/ML 1 ML VIAL IV SCH ×2 (07:53→20:47)
[2020-01-26] MEDS: FUROSEMIDE 40 MG TAB PO SCH ×2 (07:53→16:00)
[2020-01-26] MEDS: METOPROLOL TARTRATE 25 MG TAB PO SCH ×2 (07:53→20:47)
[2020-01-26] MEDS: PANTOPRAZOLE 40 MG TABLET PO SCH ×2 (07:53→20:47)
[2020-01-26] MEDS: AZITHROMYCIN 500 MG TAB PO SCH (07:53)
[2020-01-26 08:45] LABS: Calcium 9.1 mg/dL (8.4-10.2)
[2020-01-26] MEDS: THYROID, PORK 30 MG TAB PO SCH (08:48)
[2020-01-26 08:49] LABS: Basophils % (A) 0 %; Eosinophils % (A) 0 %; HCT 44.1 % (34.0-46.0); HGB 14.1 gm/dL (11.4-16.0); Lymphocytes # (A) 1.5 k/uL (1.0-4.8); Lymphocytes % (A) 12 %; MCHC 31.9 g/dL (31.0-37.0); MCV 94.1 fL (80.0-100.0); Mean Platelet Volume 7.6; Monocytes # (A) 0.6 k/uL (0-1.0); Monocytes % (A) 5 %; Neutrophils # (A) 10.9 k/uL (1.3-7.7); Neutrophils % (A) 83 %; Platelet Count 234 k/uL (150-450); RBC 4.69 m/uL (3.80-5.40); WBC 13.2 k/uL (3.8-10.6)
[2020-01-26 09:00] LABS: Potassium 3.4 mmol/L (3.5-5.1)
[2020-01-26] MEDS: INSULIN ASPART (NovoLOG) 100 UNIT/ML VIAL SQ SCH ×4 (10:07→20:53)
[2020-01-26] MEDS: HEPARIN SODIUM,PORCINE 5,000 UNIT/ML 1 ML VIAL SQ SCH ×2 (10:08→20:47)
[2020-01-26] MEDS: ALPRAZolam 0.25 MG TAB PO PRN (10:19)
[2020-01-26 11:07] LABS: Glucose,Whole Blood 113 mg/dL (75-99)
--- NOTE | 2020-01-26 11:38 | P.PN ---
Subjective Progress Note Date: 01/25/20 Principal diagnosis: Dilated esophagus, abnormal CT scan 84-year-old patient seen lying in bed. No acute complaints. Tolerating her diet. No nausea vomiting reported. Objective - Vital Signs Vital signs: Vital Signs Temp 98.3 F 01/25/20 11:16 Pulse 90 01/25/20 11:16 Resp 18 01/25/20 11:16 BP 122/83 01/25/20 11:16 Pulse Ox 94 L 01/25/20 11:16 Intake & Output 01/24/20 01/25/20 01/25/20 18:59 06:59 18:59 Intake Total 200 Balance 200 Weight 59 kg 59 kg Intake: Intake, IV Titration 200 Amount Piperacillin-Tazobactam 3 200 .375 gm In Sodium Chloride 0.9% 100 ml @ 25 mls/hr IVPB Q8HR [facility] Rx# :[id number] Other: Voiding Method Toilet Bedside Commode Bedside Commode # Voids 2 1 # Bowel Movements 1 2 - Exam On physical examination, patient appears comfortable in no apparent distress. HEAD: Normocephalic, atraumatic. EYES: No scleral icterus. No conjunctival injection. MOUTH: No lesions, tongue midline. NECK: Trachea midline, no gross abnormalities. ABDOMEN: Soft, nontender to palpation. Bowel sounds are positive. No organomegaly. No guarding or rigidity. EXTREMITIES: No pedal edema. SKIN: No rashes, no jaundice. NEUROLOGIC: Alert and oriented x3. No focal deficits. - Labs CBC & Chem 7: 01/26/20 07:42 01/26/20 07:42 Labs: Abnormal Lab Results - Last 24 Hours (Table) 01/24/20 01/24/20 01/25/20 Range/Units 16:44 19:30 05:43 WBC (3.8-10.6) k/uL Neutrophils # (1.3-7.7) k/uL BUN 64 H (7-17) mg/dL Creatinine 1.27 H (0.52-1.04) mg/dL Glucose 121 H (74-99) mg/dL POC Glucose (mg/dL) 182 H 170 H (75-99) mg/dL 01/25/20 01/25/20 01/25/20 Range/Units 05:43 06:58 10:59 WBC 13.6 H (3.8-10.6) k/uL Neutrophils # 11.9 H (1.3-7.7) k/uL BUN (7-17) mg/dL Creatinine (0.52-1.04) mg/dL Glucose (74-99) mg/dL POC Glucose (mg/dL) 154 H 109 H (75-99) mg/dL Microbiology - Last 24 Hours (Table) 01/19/20 19:04 Blood Culture - Preliminary Blood No Growth after 120 hours Assessment and Plan (1) Dilatation of esophagus Narrative/Plan: 84-year-old female presenting to the hospital with symptoms of shortness of breath worsening over the past 2 weeks, currently being treated for an acute exacerbation of diastolic heart failure. An asthma exacerbation. Computed tomography scan of the chest incidentally showed a dilated fluid-filled esophagus. Significant findings unknown as patient has previously not had any problems with swallowing. EGD performed in significant for poor distensibility of the stomach especially in the body of the stomach where there were multiple thickened fold with some nodularity but no masses identified and multiple biopsies taken still pending. Current Visit: Yes Status: Acute Code(s): K22.8 - OTHER SPECIFIED DISEASES OF ESOPHAGUS SNOMED Code(s): 41147321 (2) Asthma exacerbation Current Visit: Yes Status: Acute Code(s): J45.901 - UNSPECIFIED ASTHMA WITH (ACUTE) EXACERBATION SNOMED Code(s): 238756712 Plan: Supportive care Okay for diet Lifestyle modifications including small bites of food, subsequent liquid between bites of food is sitting upright while eating all discussed with the patient EGD with findings of with poor gastric distensibility and some nodularity but no distinct masses with biopsies pending Continue other medical management per primary team Thank you for allowing us to participate in the care of the patient we will continue to follow
--- NOTE | 2020-01-26 12:21 | P.PN ---
Subjective Progress Note Date: 01/26/20 Principal diagnosis: Left lower lobe infiltrate and left lower lobe pleural effusion On 01/25/2020 patient seen in follow-up on oncology floor. Awake and alert, in no acute distress, she is currently on 3 L of oxygen with a pulse ox of 94%, she's been afebrile, hemodynamically stable, occasional cough, occasional dyspnea with exertion, but no acute distress, overall improving. Last chest x- ray from 01/24/2020 showed no significant interval change, increased interstitial markings, bilateral infiltrates left greater than right and left pleural effusion. Patient continues on oral Lasix 40 mg twice daily, antibiotic coverage is with Zithromax and Zosyn for possibility of aspiration related pneumonia. Today's labs have been reviewed, showing white blood cell count stab le at 13.6, hemoglobin is 14.5, electrolytes were within normal limits, and renal profile slightly improved with BUN down to 64 and creatinine is 1.27. On 01/26/2020 patient seen in follow-up on oncology floor, she had received some Xanax today prior to thoracentesis, she states she is feeling relaxed, she is agreeable to proceed with a left-sided thoracentesis. She tolerated procedure well, 900 mL of yellow pleural fluid was removed, fluid was sent for analysis, stat chest x-ray has been ordered, patient denies any worsening dyspnea, currently on 3 L of oxygen a pulse ox of 93%, hemodynamically stable, no fever or chills. Today's labs have been reviewed showing white blood cell count of 13.2, hemoglobin is 14.1, sodium is 141, potassium is 3.4, chloride is 99, CO2 35, B1 is 65 and creatinine is 1.29. Blood culture has been negative, she remains on azithromycin, she has received 5 days of it, completed the course, she is on IV steroids, and Zosyn. Lung sounds reveal some diminished breath sounds at the left base. No rhonchi or wheezing. No compressive chest pain or hemoptysis. Objective - Vital Signs Vital signs: Vital Signs Temp 98.6 F 01/26/20 12:06 Pulse 77 01/26/20 12:06 Resp 18 01/26/20 12:06 BP 119/73 01/26/20 12:06 Pulse Ox 93 L 01/26/20 12:06 Intake & Output 01/25/20 01/26/20 01/26/20 18:59 06:59 18:59 Weight 59 kg 62 kg Other: Voiding Method Bedside Commode Bedside Commode Bedside Commode # Voids 3 3 1 # Bowel Movements 2 - Exam GENERAL EXAM: Alert, very pleasant, 85-year-old white female on 3 L of oxygen a pulse ox of 94% comfortable in no apparent distress. HEAD: Normocephalic/atraumatic. EYES: Normal reaction of pupils, equal size. Conjunctiva pink, sclera white. NOSE: Clear with pink turbinates. THROAT: No erythema or exudates. NECK: No masses, no JVD, no thyroid enlargement, no adenopathy. CHEST: No chest wall deformity. Symmetrical expansion. LUNGS: Diminished breath sounds at the left lower base CVS: Regular rate and rhythm, normal S1 and S2, no gallops, no murmurs, no rubs ABDOMEN: Soft, nontender. No hepatosplenomegaly, normal bowel sounds, no guarding or rigidity. EXTREMITIES: No clubbing, no edema, no cyanosis, 2+ pulses and upper and lower extremities. MUSCULOSKELETAL: Muscle strength and tone normal. SPINE: No scoliosis or deformity SKIN: No rashes CENTRAL NERVOUS SYSTEM: Alert and oriented -3. No focal deficits, tone is normal in all 4 extremities. PSYCHIATRIC: Alert and oriented -3. Appropriate affect. Intact judgment and insight. - Labs CBC & Chem 7: 01/26/20 07:42 01/26/20 07:42 Labs: Abnormal Lab Results - Last 24 Hours (Table) 01/25/20 01/25/20 01/26/20 Range/Units 17:03 19:49 07:08 WBC (3.8-10.6) k/uL Neutrophils # (1.3-7.7) k/uL Potassium (3.5-5.1) mmol/L Carbon Dioxide (22-30) mmol/L BUN (7-17) mg/dL Creatinine (0.52-1.04) mg/dL Glucose (74-99) mg/dL POC Glucose (mg/dL) 136 H 176 H 115 H (75-99) mg/dL 01/26/20 01/26/20 01/26/20 Range/Units 07:42 07:42 11:06 WBC 13.2 H (3.8-10.6) k/uL Neutrophils # 10.9 H (1.3-7.7) k/uL Potassium 3.4 L (3.5-5.1) mmol/L Carbon Dioxide 35 H (22-30) mmol/L BUN 65 H (7-17) mg/dL Creatinine 1.29 H (0.52-1.04) mg/dL Glucose 110 H (74-99) mg/dL POC Glucose (mg/dL) 113 H (75-99) mg/dL Microbiology - Last 24 Hours (Table) 01/19/20 19:04 Blood Culture - Final Blood No Growth after 144 hours Assessment and Plan Plan: 1 Acute hypoxic respiratory failure secondary to fluid volume overload and basilar pleural effusions left greater than right possibly secondary to diastolic congestive heart failure. Preserved left ventricular systolic function. Possible aspiration due to dilated esophagus and retained fluid/blood product. EGD today revealed thickened folds with nodularity of the medical's involving the fundus and cardia in the body of the stomach with poor distensibility suggestive of diffuse gastritis, status post multiple biopsies to rule out infiltrating neoplasm. Mild esophagitis. 2 Acute exacerbation of mild intermittent chronic bronchial asthma 3 Dilated fluid-filled esophagus up to 1.3 cm ovoid density at the gastroesophageal junction of the liver diaphragmatic hiatus. Cannot exclude obstructing digested food product or foreign body. EGD ending. 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 Vital signs are stable, encourage deep breathing and coughing, continue Zosyn, patient has completed 5 days of Zithromax, no fever or chills, follow-up chest x-ray post left-sided thoracentesis has been ordered. I performed a history & physical examination of the patient and discussed their management with my nurse practitioner, Tara Ledesma. I reviewed the nurse practitioner's note and agree with the documented findings and plan of care. Lung sounds are positive for diminished breath sounds at the left base. The findings and the impression was discussed with the patient. I attest to the documentation by the nurse practitioner. Time with Patient: Less than 30
--- NOTE | 2020-01-26 12:27 | XR ---
EXAMINATION TYPE: XR chest 1V portable DATE OF EXAM: 01/26/2020 Comparison: 01/24/2020 Clinical History: 85-year-old female post left thoracentesis Findings: Residual small left pleural effusion, improved after thoracentesis. Diffuse interstitial opacity pers ists and some right perihilar and infrahilar opacity, similar prior. No appreciable pneumothorax. Impression: Given interstitial density, correlate for possible CHF with mild interstitial edema. Residual small l eft effusion after thoracentesis. No appreciable pneumothorax.
[2020-01-26] MEDS ORDERED: POTASSIUM CHLORIDE ER 20 MEQ TAB.ER PO STA (15:39)
--- NOTE | 2020-01-26 15:51 | P.PN ---
Subjective Progress Note Date: 01/26/20 Principal diagnosis: This is an 85 year old female who was recently admitted with bilateral lung lesions and is being closely monitored. Patient recently underwent EGD with GI and multiple biopsies obtained and currently awaiting results. Patient is being evaluated and followed my multiple medical consultants. Pulmonary following as well and patient underwent chest ultrasound for possible Left pleural effusion thoracentesis. Patient continues to have shortness of breath and is maintained on 3L of 02 via NC and oral lasix 40 mg twice daily. Patient continues to be quite fatigued. Patient is maintained on Zithromax and Zosyn and will continue at this time. Creatinine slowly trending down and is currently 1.27. Will repeat am labs. Review of systems: Constitutional: Reports fatigue, no reports of fevers or chills Cardiovascular: No reports of chest pain or palpitations Respiratory: Reports shortness of breath, denies cough GI: no reports of nausea, vomiting, or diarrhea : no reports of dysuria or retention Neurovascular: no reports of numbness, reports some weakness 01/26/2020 Patient is seen and evaluated in follow-up status post thoracentesis of the left pleural effusion with approximately 900 mL's of fluid removed. Specimen was sent for analysis. Biopsy results still pending from EGD. Repeat chest x-ray after thoracentesis shows residual small left effusion after thoracentesis with no pneumothorax noted with mild interstitial edema noted similar to prior. Patient states her breathing has slightly improved and will attempt to wean off FiO2. He should is maintained on 40 mg of Lasix twice daily and will continue at this time. Pulmonary is following closely. Potassium was found to be 3.4 today and being replaced. Current creatinine is 1.29. Will repeat a.m. labs. Patient is maintained on Zosyn and will continue at this time. Objective - Vital Signs Vital signs: Vital Signs Temp 98.6 F 01/26/20 12:06 Pulse 88 01/26/20 15:22 Resp 18 01/26/20 15:22 BP 119/73 01/26/20 12:06 Pulse Ox 93 L 01/26/20 12:06 Intake & Output 01/25/20 01/26/20 01/26/20 18:59 06:59 18:59 Intake Total 700 Balance 700 Weight 59 kg 62 kg Intake: Intake, IV Titration 100 Amount Piperacillin-Tazobactam 3 100 .375 gm In Sodium Chloride 0.9% 100 ml @ 25 mls/hr IVPB Q8HR [facility] Rx# :[id number] Oral 600 Other: Voiding Method Bedside Commode Bedside Commode Bedside Commode # Voids 3 3 2 # Bowel Movements 2 - Exam Gen: This is a 85-year-old female sitting up in bed, awake, alert and oriented 3, well-developed, well-nourished. HEENT: Head is atraumatic, normocephalic. Pupils equal, round. Sclerae is anicteric. NECK: Supple. No JVD. No lymphadenopathy. No thyromegaly. LUNGS: diminished breath sounds bilaterally with a few scattered rhonchi noted. No wheezing noted. No intercostal retractions. HEART: S1, S2 are muffled ABDOMEN: Soft. Bowel sounds are present. No masses. No tenderness. EXTREMITIES: No pedal edema. No calf tenderness. NEUROLOGICAL: Patient is awake, alert and oriented x3. Cranial nerves 2 through 12 are grossly intact. - Labs CBC & Chem 7: 01/26/20 07:42 01/26/20 07:42 Labs: Abnormal Lab Results - Last 24 Hours (Table) 01/25/20 01/25/20 01/26/20 Range/Units 17:03 19:49 07:08 WBC (3.8-10.6) k/uL Neutrophils # (1.3-7.7) k/uL Potassium (3.5-5.1) mmol/L Carbon Dioxide (22-30) mmol/L BUN (7-17) mg/dL Creatinine (0.52-1.04) mg/dL Glucose (74-99) mg/dL POC Glucose (mg/dL) 136 H 176 H 115 H (75-99) mg/dL 01/26/20 01/26/20 01/26/20 Range/Units 07:42 07:42 11:06 WBC 13.2 H (3.8-10.6) k/uL Neutrophils # 10.9 H (1.3-7.7) k/uL Potassium 3.4 L (3.5-5.1) mmol/L Carbon Dioxide 35 H (22-30) mmol/L BUN 65 H (7-17) mg/dL Creatinine 1.29 H (0.52-1.04) mg/dL Glucose 110 H (74-99) mg/dL POC Glucose (mg/dL) 113 H (75-99) mg/dL Microbiology - Last 24 Hours (Table) 01/19/20 19:04 Blood Culture - Final Blood No Growth after 144 hours Assessment and Plan Assessment: Shortness of breath, possibly secondary to pulmonary edema and pleural effusion Bilateral aspiration pneumonia, likely Thickened folds with nodularity of the mucosa involving the fundus and cardiac body of the stomach with diffuse gastritis status post multiple biopsies to rule out the possibility of an infiltrating neoplasm Fluid-filled esophagus. Rule out esophageal stricture or malignancy on the computed tomography scan Chronic intermittent bronchial asthma, acute exacerbation Mild to moderate tricuspid regurgitation, mild to moderate pulmonary hypertension and small generalized pericardial effusion on the 2-D echo, no signs of congestive heart failure noted on the echo with an EF of 55-60% Increased creatinine with possible mild acute renal failure with acute tubular necrosis with prerenal factors, present on admission History of asthma History of hypothyroidism history of polymyalgia rheumatica Possible chronic obstructive pulmonary disease History of tonsillectomy History of kidney donation Hypokalemia Computed tomography scan of the chest showing bilateral pleural effusion Increased WBC Possible mild acute urinary tract infection, present on admission Full code Recommendations and discussion: Recommend to continue current medications, management, and symptomatic treatment. Patient underwent thoracentesis with removal of approximately 900 mL of fluid from the left pleural effusion. Chest x-ray shows no pneumothorax status post thoracentesis. Continue on antibiotics. Continue with oral lasix along with bronchodilators at this time. Increase activity as tolerated. Will continue to monitor labs and vitals closely. Awaiting biopsy report. Further recommendations to follow. Prognosis is guarded. Possible discharge in 24-48 hours.
[2020-01-26 16:59] LABS: Glucose,Whole Blood 228 mg/dL (75-99)
[2020-01-26 20:14] LABS: Glucose,Whole Blood 65 mg/dL (75-99)
[2020-01-26 20:34] LABS: Glucose,Whole Blood 79 mg/dL (75-99)
[2020-01-26 21:31] LABS: Appearance,BF Clear; Color,BF Yellow; Nucleated Cells, Body Fluid 79 /uL; RBC, Body Fluid 43 /uL
[2020-01-26 21:53] LABS: Mononuclear WBC,Body Fluid 97 %; Polynuclear WBC,Body Fluid 3 %; Total Cells Counted,Body Fluid 100
--- NOTE | 2020-01-26 22:21 | OP ---
OPERATIVE REPORT OPERATIVE REPORT: Left-sided thoracentesis. PREOPERATIVE DIAGNOSIS: Left pleural effusion. POSTOPERATIVE DIAGNOSIS: Left pleural effusion. ANESTHESIA USED: 2 mL of 1% lidocaine. PROCEDURE DESCRIPTION: The patient was placed in a sitting-upright position. The area below the left scapula was prepared in a sterile fashion and drapes were applied. At the level of the ninth intercostal space and tip of the scapula, the area was locally anesthetized. Then a 26- gauge needle was inserted into the site, into the pleural space, and fluid was localized with the needle. Then a small tiny incision was made, and a standard thoracentesis catheter and needle were used, advanced into the pleural space, and as soon as the fluid was obtained, the catheter was advanced out of the needle, and the needle was pulled out of the pleural space. Freely flowing fluid was removed. Roughly 900 mL of taj-colored fluid was removed from the pleural space. The procedure was well tolerated, and no evidence of any immediate complications. Chest x-ray was ordered postoperatively and showed no evidence of pneumothorax, with complete resolution of the pleural effusion. MMODL / IJN: [id number] /
[2020-01-27] MEDS: PIPERACILLIN-TAZOBACTAM 3.375 GM in SODIUM CHLORIDE 0.9% 100 ML IVPB SCH ×3 (00:07→17:55)
[2020-01-27 01:36] LABS: Glucose,Whole Blood 134 mg/dL (75-99)
[2020-01-27 04:17] LABS: Total Protein, Body Fluid 3360 mg/dL
[2020-01-27 04:31] LABS: Glucose, BF Source Pleural Fluid; Glucose, Body Fluid 129 mg/dL; LDH, Body Fluid Source Pleural Fluid
[2020-01-27 07:03] LABS: Glucose,Whole Blood 115 mg/dL (75-99)
[2020-01-27] MEDS: INSULIN ASPART (NovoLOG) 100 UNIT/ML VIAL SQ SCH ×4 (07:33→20:53)
[2020-01-27] MEDS: HEPARIN SODIUM,PORCINE 5,000 UNIT/ML 1 ML VIAL SQ SCH ×2 (07:53→20:07)
[2020-01-27] MEDS: methylPREDNISolone SOD SUCCI 40 MG/ML 1 ML VIAL IV SCH (07:53)
[2020-01-27] MEDS: THYROID, PORK 30 MG TAB PO SCH (07:53)
[2020-01-27] MEDS: METOPROLOL TARTRATE 25 MG TAB PO SCH ×2 (07:57→20:07)
[2020-01-27] MEDS: FUROSEMIDE 40 MG TAB PO SCH (07:58)
[2020-01-27] MEDS: PANTOPRAZOLE 40 MG TABLET PO SCH ×2 (07:59→20:07)
[2020-01-27 08:10] LABS: Basophils % (A) 0 %; Eosinophils # (A) 0.1 k/uL (0-0.7); Eosinophils % (A) 1 %; HCT 41.9 % (34.0-46.0); Lymphocytes # (A) 1.3 k/uL (1.0-4.8); Lymphocytes % (A) 10 %; MCH 31.2 pg (25.0-35.0); MCHC 33.5 g/dL (31.0-37.0); MCV 93.1 fL (80.0-100.0); Mean Platelet Volume 7.8; Monocytes # (A) 0.6 k/uL (0-1.0); Monocytes % (A) 5 %; Neutrophils # (A) 11.4 k/uL (1.3-7.7); Neutrophils % (A) 85 %; Platelet Count 207 k/uL (150-450); RDW 12.9 % (11.5-15.5); WBC 13.4 k/uL (3.8-10.6)
[2020-01-27 08:30] LABS: Calcium 9.1 mg/dL (8.4-10.2); Potassium 3.4 mmol/L (3.5-5.1)
[2020-01-27] MEDS ORDERED: POTASSIUM CHLORIDE ER 20 MEQ TAB.ER PO STA (09:02)
[2020-01-27] MEDS: IPRATROPIUM-ALBUTEROL 3 ML NEB INHALATION SCH ×4 (09:13→20:15)
[2020-01-27 11:07] LABS: Glucose,Whole Blood 187 mg/dL (75-99)
--- NOTE | 2020-01-27 11:35 | P.PN ---
Subjective Progress Note Date: 01/27/20 Principal diagnosis: Left lower lobe infiltrate/effusion This is a very pleasant 84-year-old female patient who follows with Dr. Ralph as her primary care provider. She has a history of mild intermittent chronic bronchial asthma, hypothyroidism and polymyalgia rheumatica. She is a lifelong nonsmoker. 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 She had been having episodes of shortness of breath over the past 2 weeks. She was having trouble lying flat. She was having increased shortness of breath with minimal exertion. She had been seen and evaluated by her PCP who did order a chest x-ray. Based on the findings she was referred to the emergency room. Asked x-ray revealed diffuse interstitial pattern with bilateral consolidation and small effusion. She was hypoxic in the low 90s on 2 L/m per nasal cannula. White count 9.6. Creatinine 1.13. ProBNP 378. Troponin negative. She is seen today in consultation on the selective care unit. She is currently awake and alert in no acute distress. Maintaining O2 saturations in the low 90s on 3 L/m per nasal ca nnula.Echocardiogram reveals preserved preserved left ventricular systolic function with ejection fraction 55-60%. Mild to moderate pulmonary hypertension. No significant valvular disorder. He is currently on bronchodilators, IV Solu-Medrol, oral diuretics. His chest x-ray shows improvement in the fluid volume overload. There is still a small to moderate left pleural effusion and a tiny right pleural effusion. She is breathing easier today compared to yesterday. CoVID 19 screen pending. The patient is seen today 01/21/2020 in follow-up on the selective care unit. She is currently resting comfortably in bed. Awake and alert in no acute distress. No worsening shortness of breath, cough or congestion. Maintaining O2 saturations in the low 90s on 2 L/m per nasal cannula. She's afebrile. Hemodynamically stable. Blood culture reveals no growth to date. White count 16.5. Hemoglobin 13.7. Sodium 139. Potassium 3.4. Creatinine 1.32. Covid 19 screen was negative. She remains on bronchodilators and IV Solu-Medrol. Chest x-ray reveals diffuse interstitial pattern with bilateral pleural parenchymal changes. Left pleural infiltrate/effusion. Initiated on ceftriaxone and a zithromycin. Oral diuretics. Heparin for DVT prophylaxis. The patient is seen today 01/22/2020 in follow-up on the selective care unit. She is awake and alert in no acute distress. No worsening cough congestion. No worsening shortness of breath and she is maintaining good O2 saturations in the mid 90s on 2 L/m per nasal cannula. She remains afebrile. Computed tomography scan of the chest revealed underlying COPD. CHF exacerbation with mild cardiomegaly and small left greater than right bilateral pleural effusions along with mild interstitial edema bilaterally. Dilated fluid-filled esophagus up to 1.3 cm ovoid density in the gastroesophageal junction the liver diaphragmatic hiatus. GI services has been consulted. White count 13.9. Hemoglobin 13.6. Sodium 140. Potassium 3.1. Creatinine 1.33. She remains on ceftriaxone and azithromycin along with bronchodilators. Oral diuretics. The patient was seen today 01/23/2020 in follow-up on the selective care unit. She is currently resting comfortably in bed. Awake and alert in no acute distress. Maintaining O2 saturations in the 90s on 2 L/m per nasal cannula. Blood culture reveals no growth. Sodium 134. Potassium 3.0. Creatinine 1.34. She remains on bronchodilators, antibiotics, oral diuretics. She did undergo E GD this morning which revealed thickened folds with nodularity of the mucosa involving the fundus and cardia in the body of the stomach with poor distensibility suggestive of diffuse gastritis status post multiple biopsies to rule out infiltrating neoplasm. Mild esophagitis. The patient is seen today 01/27/2020 in follow-up on the regular medical floor. She is awake and alert in no acute distress. She did undergo a left-sided thoracentesis for large pleural effusion and 900 ML's of taj-colored fluid was removed. Analysis pending. Postprocedure chest x-ray did not reveal any evidence of pneumothorax. White count 13.4. Hemoglobin 14.0. Sodium 139. Potassium 3.4. Creatinine 1.44. Stomach biopsies from previous EGD results are pending. She is currently stable. No shortness of breath, cough or congestion. She is anxious to go home. Objective - Vital Signs Vital signs: Vital Signs Temp 98.1 F 01/27/20 11:31 Pulse 81 01/27/20 11:31 Resp 17 01/27/20 11:31 BP 126/80 01/27/20 11:31 Pulse Ox 93 L 07/01/20 11:31 Intake & Output 01/26/20 01/27/20 01/27/20 18:59 06:59 18:59 Intake Total 700 440 Balance 700 440 Weight 60 kg Intake: Intake, IV Titration 100 Amount Piperacillin-Tazobactam 3 100 .375 gm In Sodium Chloride 0.9% 100 ml @ 25 mls/hr IVPB Q8HR [facility] Rx# :[id number] Oral 600 440 Other: Voiding Method Bedside Commode Bedside Commode # Voids 2 1 # Bowel Movements 1 - Exam GENERAL EXAM: Alert, active, very pleasant 84-year-old female patient, on 3 L nasal cannula, comfortable in no apparent distress. HEAD: Normocephalic. EYES: Normal reaction of pupils, equal size. NOSE: Clear with pink turbinates. THROAT: No erythema or exudates. NECK: No masses, no JVD. CHEST: No chest wall deformity. LUNGS: Equal air entry with basilar crackles left greater than right. CVS: S1 and S2 normal with no audible murmur, regular rhythm. ABDOMEN: No hepatosplenomegaly, normal bowel sounds, no guarding or rigidity. SPINE: No scoliosis or deformity SKIN: No rashes CENTRAL NERVOUS SYSTEM: No focal deficits, tone is normal in all 4 extremities. EXTREMITIES: There is no peripheral edema. No clubbing, no cyanosis. Peripheral pulses are intact. - Labs CBC & Chem 7: 01/27/20 07:45 01/27/20 07:45 Labs: Abnormal Lab Results - Last 24 Hours (Table) 01/26/20 01/26/20 01/27/20 Range/Units 16:57 20:13 01:35 WBC (3.8-10.6) k/uL Neutrophils # (1.3-7.7) k/uL Potassium (3.5-5.1) mmol/L Carbon Dioxide (22-30) mmol/L BUN (7-17) mg/dL Creatinine (0.52-1.04) mg/dL Glucose (74-99) mg/dL POC Glucose (mg/dL) 228 H 65 L 134 H (75-99) mg/dL 01/27/20 01/27/20 01/27/20 Range/Units 07:02 07:45 07:45 WBC 13.4 H (3.8-10.6) k/uL Neutrophils # 11.4 H (1.3-7.7) k/uL Potassium 3.4 L (3.5-5.1) mmol/L Carbon Dioxide 34 H (22-30) mmol/L BUN 66 H (7-17) mg/dL Creatinine 1.44 H (0.52-1.04) mg/dL Glucose 111 H (74-99) mg/dL POC Glucose (mg/dL) 115 H (75-99) mg/dL 01/27/20 Range/Units 11:06 WBC (3.8-10.6) k/uL Neutrophils # (1.3-7.7) k/uL Potassium (3.5-5.1) mmol/L Carbon Dioxide (22-30) mmol/L BUN (7-17) mg/dL Creatinine (0.52-1.04) mg/dL Glucose (74-99) mg/dL POC Glucose (mg/dL) 187 H (75-99) mg/dL Microbiology - Last 24 Hours (Table) 01/26/20 12:00 Gram Stain - Preliminary Pleural Fluid Body Fluid Culture - Preliminary 01/26/20 12:00 Fungal Culture - Preliminary Pleural Fluid 01/26/20 12:00 Acid Fast Bacilli Culture - Preliminary Pleural Fluid Assessment and Plan Assessment: 1 Acute hypoxic respiratory failure secondary to fluid volume overload and basilar pleural effusions left greater than right possibly secondary to [place]lic congestive heart failure. Preserved left ventricular systolic function. Possible aspiration due to dilated esophagus and retained fluid/blood product. EGD revealed thickened folds with nodularity of the medical's involving the fundus and cardia in the body of the stomach with poor distensibility suggestive of diffuse gastritis, status post multiple biopsies to rule out infiltrating neoplasm. Mild esophagitis. Status post left-sided thoracentesis with 900 ML's of fluid removed on 01/26/2020. Fluid analysis pending. 2 Acute exacerbation of mild intermittent chronic bronchial asthma 3 Dilated fluid-filled esophagus up to 1.3 cm ovoid density at the gastroesophageal junction of the liver diaphragmatic hiatus. Cannot exclude obstructing digested food product or foreign body. EGD ending. 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 Butler She is cleared for discharge from the pulmonary standpoint Needs evaluation for possible home oxygen Follow-up in our office in 1-2 weeks' time I, the cosigning physician, performed a history & physical examination of the patient. Lungs sounds with crackles in the posterior bases, left greater than right. Maintaining good O2 saturations in the 90s on 3 L/m per nasal cannula. I discussed the assessment and plan of care with my nurse practitioner, Bernie Wing. I attest to the above note as dictated by her.
--- NOTE | 2020-01-27 13:40 | P.PN ---
Subjective Progress Note Date: 01/27/20 Principal diagnosis: This is an 85 year old female who was recently admitted with bilateral lung lesions and is being closely monitored. Patient recently underwent EGD with GI and multiple biopsies obtained and currently awaiting results. Patient is being evaluated and followed my multiple medical consultants. Pulmonary following as well and patient underwent chest ultrasound for possible Left pleural effusion thoracentesis. Patient continues to have shortness of breath and is maintained on 3L of 02 via NC and oral lasix 40 mg twice daily. Patient continues to be quite fatigued. Patient is maintained on Zithromax and Zosyn and will continue at this time. Creatinine slowly trending down and is currently 1.27. Will repeat am labs. Review of systems: Constitutional: Reports fatigue, no reports of fevers or chills Cardiovascular: No reports of chest pain or palpitations Respiratory: Reports shortness of breath, denies cough GI: no reports of nausea, vomiting, or diarrhea : no reports of dysuria or retention Neurovascular: no reports of numbness, reports some weakness 01/26/2020 Patient is seen and evaluated in follow-up status post thoracentesis of the left pleural effusion with approximately 900 mL's of fluid removed. Specimen was sent for analysis. Biopsy results still pending from EGD. Repeat chest x-ray after thoracentesis shows residual small left effusion after thoracentesis with no pneumothorax noted with mild interstitial edema noted similar to prior. Patient states her breathing has slightly improved and will attempt to wean off FiO2. He should is maintained on 40 mg of Lasix twice daily and will continue at this time. Pulmonary is following closely. Potassium was found to be 3.4 today and being replaced. Current creatinine is 1.29. Will repeat a.m. labs. Patient is maintained on Zosyn and will continue at this time. 01/27/2020 Patient is seen in follow-up today and states that her breathing has improved somewhat although continues to be on 3 L. Nursing staff assessed the patient and patient was 90% at rest. Patient states she does not normally use oxygen in the outpatient setting. Patient remains on IV antibiotics and will continue at this time. Creatinine worsening and is currently 1.44 with a potassium of 3.4. Potassium will be replaced. Lasix was discontinued and a BMP was obtained and is 408. Will repeat a chest x-ray in the morning and reevaluate for home O2. Currently biopsy and specimen analysis are still pending. No reports of chest pain or worsening shortness of breath. Patient is afebrile. No reports of nausea or vomiting and patient is tolerating diet. Objective - Vital Signs Vital signs: Vital Signs Temp 98.1 F 01/27/20 11:31 Pulse 80 01/27/20 12:35 Resp 17 01/27/20 11:31 BP 126/80 01/27/20 11:31 Pulse Ox 93 L 01/27/20 11:31 Intake & Output 01/26/20 01/27/20 01/27/20 18:59 06:59 18:59 Intake Total 700 440 Balance 700 440 Weight 60 kg Intake: Intake, IV Titration 100 Amount Piperacillin-Tazobactam 3 100 .375 gm In Sodium Chloride 0.9% 100 ml @ 25 mls/hr IVPB Q8HR [facility] Rx# :[id number] Oral 600 440 Other: Voiding Method Bedside Commode Bedside Commode Bedside Commode # Voids 2 1 # Bowel Movements 1 - Exam Gen: This is a 85-year-old female sitting up in bed, awake, alert and oriented 3, well-developed, well-nourished. HEENT: Head is atraumatic, normocephalic. Pupils equal, round. Sclerae is anicteric. NECK: Supple. No JVD. No lymphadenopathy. No thyromegaly. LUNGS: diminished breath sounds bilaterally with a few scattered rhonchi noted. No wheezing noted. No intercostal retractions. HEART: S1, S2 are muffled ABDOMEN: Soft. Bowel sounds are present. No masses. No tenderness. EXTREMITIES: No pedal edema. No calf tenderness. NEUROLOGICAL: Patient is awake, alert and oriented x3. Cranial nerves 2 through 12 are grossly intact. - Labs CBC & Chem 7: 01/27/20 07:45 01/27/20 07:45 Labs: Abnormal Lab Results - Last 24 Hours (Table) 01/26/20 01/26/20 01/27/20 Range/Units 16:57 20:13 01:35 WBC (3.8-10.6) k/uL Neutrophils # (1.3-7.7) k/uL Potassium (3.5-5.1) mmol/L Carbon Dioxide (22-30) mmol/L BUN (7-17) mg/dL Creatinine (0.52-1.04) mg/dL Glucose (74-99) mg/dL POC Glucose (mg/dL) 228 H 65 L 134 H (75-99) mg/dL 01/27/20 01/27/20 01/27/20 Range/Units 07:02 07:45 07:45 WBC 13.4 H (3.8-10.6) k/uL Neutrophils # 11.4 H (1.3-7.7) k/uL Potassium 3.4 L (3.5-5.1) mmol/L Carbon Dioxide 34 H (22-30) mmol/L BUN 66 H (7-17) mg/dL Creatinine 1.44 H (0.52-1.04) mg/dL Glucose 111 H (74-99) mg/dL POC Glucose (mg/dL) 115 H (75-99) mg/dL 01/27/20 Range/Units 11:06 WBC (3.8-10.6) k/uL Neutrophils # (1.3-7.7) k/uL Potassium (3.5-5.1) mmol/L Carbon Dioxide (22-30) mmol/L BUN (7-17) mg/dL Creatinine (0.52-1.04) mg/dL Glucose (74-99) mg/dL POC Glucose (mg/dL) 187 H (75-99) mg/dL Microbiology - Last 24 Hours (Table) 01/26/20 12:00 Gram Stain - Preliminary Pleural Fluid Body Fluid Culture - Preliminary 01/26/20 12:00 Fungal Culture - Preliminary Pleural Fluid 01/26/20 12:00 Acid Fast Bacilli Culture - Preliminary Pleural Fluid Assessment and Plan Assessment: Shortness of breath, possibly secondary to pulmonary edema, pleural effusion, or congestive heart failure, acute on chronic diastolic dysfunction, echo with an EF of 55-60% Bilateral aspiration pneumonia, likely Thickened folds with nodularity of the mucosa involving the fundus and cardiac body of the stomach with diffuse gastritis status post multiple biopsies to rule out the possibility of an infiltrating neoplasm Fluid-filled esophagus. Rule out esophageal stricture or malignancy on the computed tomography scan Chronic intermittent bronchial asthma, acute exacerbation Mild to moderate tricuspid regurgitation, mild to moderate pulmonary hypertension and small generalized pericardial effusion on the 2-D echo Increased creatinine with possible mild acute renal failure with acute tubular necrosis with prerenal factors, present on admission History of asthma History of hypothyroidism history of polymyalgia rheumatica Possible chronic obstructive pulmonary disease History of tonsillectomy History of kidney donation Hypokalemia Computed tomography scan of the chest showing bilateral pleural effusion Increased WBC Possible mild acute urinary tract infection, present on admission Full code Recommendations and discussion: Recommend to continue current medications, management, and symptomatic treatment. Patient continues to require oxygen and discuss with nursing staff about weaning FiO2. Patient's oxygen at room air while resting is 90%. Will reevaluate in the morning. Repeat chest x-ray in the morning. BNP drawn today is 408. Continue on antibiotics. Continue with bronchodilators at this time. Lasix has been discontinued as creatinine is currently 1.44 and trending up. Will repeat a.m. labs. Increase activity as tolerated. Will continue to monitor labs and vitals closely. Awaiting biopsy report. Further recommendations to follow. Prognosis is guarded. Possible discharge in 24-48 hours.
[2020-01-27 17:14] LABS: Glucose,Whole Blood 103 mg/dL (75-99)
[2020-01-27 20:32] LABS: Glucose,Whole Blood 230 mg/dL (75-99)
[2020-01-28] MEDS: PIPERACILLIN-TAZOBACTAM 3.375 GM in SODIUM CHLORIDE 0.9% 100 ML IVPB SCH ×3 (00:16→16:56)
[2020-01-28] MEDS: IPRATROPIUM-ALBUTEROL 3 ML NEB INHALATION SCH ×4 (07:12→19:07)
[2020-01-28 07:14] LABS: Glucose,Whole Blood 98 mg/dL (75-99)
[2020-01-28] MEDS: INSULIN ASPART (NovoLOG) 100 UNIT/ML VIAL SQ SCH ×4 (07:18→21:55)
[2020-01-28] MEDS ORDERED: FUROSEMIDE 10 MG/ML 4 ML VIAL IV STA (08:03)
[2020-01-28 08:04] LABS: Calcium 9.4 mg/dL (8.4-10.2); Potassium 3.6 mmol/L (3.5-5.1)
[2020-01-28] MEDS: HEPARIN SODIUM,PORCINE 5,000 UNIT/ML 1 ML VIAL SQ SCH ×2 (09:03→21:55)
[2020-01-28] MEDS: PANTOPRAZOLE 40 MG/10 ML VIAL IVP SCH ×2 (09:10→21:56)
--- NOTE | 2020-01-28 11:15 | XR ---
EXAMINATION TYPE: XR chest 2V DATE OF EXAM: 01/28/2020 COMPARISON: chest x-ray 01/26/2020 HISTORY: Shortness of breath TECHNIQUE: Frontal and lateral views of the chest are obtained. FINDINGS: Findings are similar to prior exam. There is blunting the costophrenic angles greater on t he left, there is patchy basilar density. Interstitium is increased. There is no pneumothorax. Patien t is rotated. Aorta is dense. Heart is enlarged. Bone mineralization is reduced. IMPRESSION: Correlate for congestive heart failure, interstitial edema, pleural effusions
[2020-01-28] MEDS: METOPROLOL TARTRATE 25 MG TAB PO SCH ×2 (11:30→21:55)
[2020-01-28] MEDS: THYROID, PORK 30 MG TAB PO SCH (11:30)
[2020-01-28] MEDS: PANTOPRAZOLE 40 MG TABLET PO SCH (11:31)
[2020-01-28] MEDS: predniSONE 10 MG TAB PO SCH (11:32)
--- NOTE | 2020-01-28 11:55 | P.PN ---
Subjective Progress Note Date: 01/28/20 Principal diagnosis: Left lower lobe infiltrate/effusion This is a very pleasant 84-year-old female patient who follows with Dr. Ralph as her primary care provider. She has a history of mild intermittent chronic bronchial asthma, hypothyroidism and polymyalgia rheumatica. She is a lifelong nonsmoker. 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 She had been having episodes of shortness of breath over the past 2 weeks. She was having trouble lying flat. She was having increased shortness of breath with minimal exertion. She had been seen and evaluated by her PCP who did order a chest x-ray. Based on the findings she was referred to the emergency room. Asked x-ray revealed diffuse interstitial pattern with bilateral consolidation and small effusion. She was hypoxic in the low 90s on 2 L/m per nasal cannula. White count 9.6. Creatinine 1.13. ProBNP 378. Troponin negative. She is seen today in consultation on the selective care unit. She is currently awake and alert in no acute distress. Maintaining O2 saturations in the low 90s on 3 L/m per nasal ca nnula.Echocardiogram reveals preserved preserved left ventricular systolic function with ejection fraction 55-60%. Mild to moderate pulmonary hypertension. No significant valvular disorder. He is currently on bronchodilators, IV Solu-Medrol, oral diuretics. His chest x-ray shows improvement in the fluid volume overload. There is still a small to moderate left pleural effusion and a tiny right pleural effusion. She is breathing easier today compared to yesterday. CoVID 19 screen pending. The patient is seen today 01/21/2020 in follow-up on the selective care unit. She is currently resting comfortably in bed. Awake and alert in no acute distress. No worsening shortness of breath, cough or congestion. Maintaining O2 saturations in the low 90s on 2 L/m per nasal cannula. She's afebrile. Hemodynamically stable. Blood culture reveals no growth to date. White count 16.5. Hemoglobin 13.7. Sodium 139. Potassium 3.4. Creatinine 1.32. Covid 19 screen was negative. She remains on bronchodilators and IV Solu-Medrol. Chest x-ray reveals diffuse interstitial pattern with bilateral pleural parenchymal changes. Left pleural infiltrate/effusion. Initiated on ceftriaxone and a zithromycin. Oral diuretics. Heparin for DVT prophylaxis. The patient is seen today 01/22/2020 in follow-up on the selective care unit. She is awake and alert in no acute distress. No worsening cough congestion. No worsening shortness of breath and she is maintaining good O2 saturations in the mid 90s on 2 L/m per nasal cannula. She remains afebrile. Computed tomography scan of the chest revealed underlying COPD. CHF exacerbation with mild cardiomegaly and small left greater than right bilateral pleural effusions along with mild interstitial edema bilaterally. Dilated fluid-filled esophagus up to 1.3 cm ovoid density in the gastroesophageal junction the liver diaphragmatic hiatus. GI services has been consulted. White count 13.9. Hemoglobin 13.6. Sodium 140. Potassium 3.1. Creatinine 1.33. She remains on ceftriaxone and azithromycin along with bronchodilators. Oral diuretics. The patient was seen today 01/23/2020 in follow-up on the selective care unit. She is currently resting comfortably in bed. Awake and alert in no acute distress. Maintaining O2 saturations in the 90s on 2 L/m per nasal cannula. Blood culture reveals no growth. Sodium 134. Potassium 3.0. Creatinine 1.34. She remains on bronchodilators, antibiotics, oral diuretics. She did undergo E GD this morning which revealed thickened folds with nodularity of the mucosa involving the fundus and cardia in the body of the stomach with poor distensibility suggestive of diffuse gastritis status post multiple biopsies to rule out infiltrating neoplasm. Mild esophagitis. The patient is seen today 01/27/2020 in follow-up on the regular medical floor. She is awake and alert in no acute distress. She did undergo a left-sided thoracentesis for large pleural effusion and 900 ML's of taj-colored fluid was removed. Analysis pending. Postprocedure chest x-ray did not reveal any evidence of pneumothorax. White count 13.4. Hemoglobin 14.0. Sodium 139. Potassium 3.4. Creatinine 1.44. Stomach biopsies from previous EGD results are pending. She is currently stable. No shortness of breath, cough or congestion. She is anxious to go home. Patient is seen today 01/28/2020 in follow-up on the regular medical floor. She is currently resting comfortably in bed. Awake and alert in no acute distress. She was having some shortness of breath earlier. Chest x-ray shows some fluid volume overload. She was given IV diuretics. She is urinating well. She is still requiring 2 L of oxygen per nasal cannula to maintain O2 saturations in the 90s. Pleural fluid cultures reveal no growth to date. Sodium 141. Potassium 3.6. Creatinine 1.74. She remains on Zosyn, bronchodilators and oral prednisone. Objective - Vital Signs Vital signs: Vital Signs Temp 97.6 F 01/28/20 05:22 Pulse 88 01/28/20 11:21 Resp 20 01/28/20 05:22 BP 127/74 01/28/20 05:22 Pulse Ox 95 01/28/20 07:13 Intake & Output 01/27/20 01/28/20 01/28/20 18:59 06:59 18:59 Intake Total 1100 Output Total 300 Balance 800 Intake: Intake, IV Titration 100 Amount Piperacillin-Tazobactam 3 100 .375 gm In Sodium Chloride 0.9% 100 ml @ 25 mls/hr IVPB Q8HR [facility] Rx# :[id number] Oral 1000 Output: Urine 300 Other: Voiding Method Bedside Commode Bedside Commode Bedside Commode # Voids 1 1 2 # Bowel Movements 1 2 - Exam GENERAL EXAM: Alert, active, very pleasant 85-year-old female patient, on 2 L nasal cannula, comfortable in no apparent distress. HEAD: Normocephalic. EYES: Normal reaction of pupils, equal size. NOSE: Clear with pink turbinates. THROAT: No erythema or exudates. NECK: No masses, no JVD. CHEST: No chest wall deformity. LUNGS: Equal air entry with basilar crackles left greater than right. CVS: S1 and S2 normal with no audible murmur, regular rhythm. ABDOMEN: No hepatosplenomegaly, normal bowel sounds, no guarding or rigidity. SPINE: No scoliosis or deformity SKIN: No rashes CENTRAL NERVOUS SYSTEM: No focal deficits, tone is normal in all 4 extremities. EXTREMITIES: There is no peripheral edema. No clubbing, no cyanosis. Peripheral pulses are intact. - Labs CBC & Chem 7: 01/27/20 07:45 01/28/20 07:25 Labs: Abnormal Lab Results - Last 24 Hours (Table) 01/27/20 01/27/20 01/28/20 Range/Units 17:12 20:31 07:25 Carbon Dioxide 31 H (22-30) mmol/L BUN 73 H (7-17) mg/dL Creatinine 1.74 H (0.52-1.04) mg/dL Glucose 101 H (74-99) mg/dL POC Glucose (mg/dL) 103 H 230 H (75-99) mg/dL Microbiology - Last 24 Hours (Table) 01/26/20 12:00 Gram Stain - Preliminary Pleural Fluid Body Fluid Culture - Preliminary 01/26/20 12:00 Acid Fast Bacilli Smear - Final Pleural Fluid Acid Fast Bacilli Culture - Preliminary Assessment and Plan Assessment: 1 Acute hypoxic respiratory failure secondary to fluid volume overload and basilar pleural effusions left greater than right possibly secondary to diastolic congestive heart failure. Preserved left ventricular systolic function. Possible aspiration due to dilated esophagus and retained fluid/blood product. EGD revealed thickened folds with nodularity of the medical's involving the fundus and cardia in the body of the stomach with poor distensibility suggestive of diffuse gastritis, status post multiple biopsies to rule out infiltrating neoplasm. Mild esophagitis. Status post left-sided thoracentesis with 900 ML's of fluid removed on 01/26/2020. Fluid analysis pending. Today's chest x-ray revealed evidence of fluid volume overload. IV diuretics given. 2 Acute exacerbation of mild intermittent chronic bronchial asthma 3 Dilated fluid-filled esophagus up to 1.3 cm ovoid density at the gastroesophageal junction of the liver diaphragmatic hiatus. Cannot exclude obstructing digested food product or foreign body. EGD revealed no evidence of obstruction but diffuse gastritis, biopsies pending. 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 Butler Chest x-ray and labs reviewed She is cleared for discharge from the pulmonary standpoint Most likely needs home oxygen Follow-up in our office in 1-2 weeks' time Cytology on pleural fluid and gastric biopsies pending I, the cosigning physician, performed a history & physical examination of the patient. Lungs sounds with crackles in the posterior bases, left greater than right. Maintaining good O2 saturations in the 90s on 2 L/m per nasal cannula. I discussed the assessment and plan of care with my nurse practitioner, Bernie Wing. I attest to the above note as dictated by her.
[2020-01-28 12:06] LABS: Glucose,Whole Blood 135 mg/dL (75-99)
--- NOTE | 2020-01-28 12:46 | P.PN ---
Subjective Progress Note Date: 01/28/20 Principal diagnosis: This is an 85 year old female who was recently admitted with bilateral lung lesions and is being closely monitored. Patient recently underwent EGD with GI and multiple biopsies obtained and currently awaiting results. Patient is being evaluated and followed my multiple medical consultants. Pulmonary following as well and patient underwent chest ultrasound for possible Left pleural effusion thoracentesis. Patient continues to have shortness of breath and is maintained on 3L of 02 via NC and oral lasix 40 mg twice daily. Patient continues to be quite fatigued. Patient is maintained on Zithromax and Zosyn and will continue at this time. Creatinine slowly trending down and is currently 1.27. Will repeat am labs. Review of systems: Constitutional: Reports fatigue, no reports of fevers or chills Cardiovascular: No reports of chest pain or palpitations Respiratory: Reports shortness of breath, denies cough GI: no reports of nausea, vomiting, or diarrhea : no reports of dysuria or retention Neurovascular: no reports of numbness, reports some weakness 01/26/2020 Patient is seen and evaluated in follow-up status post thoracentesis of the left pleural effusion with approximately 900 mL's of fluid removed. Specimen was sent for analysis. Biopsy results still pending from EGD. Repeat chest x-ray after thoracentesis shows residual small left effusion after thoracentesis with no pneumothorax noted with mild interstitial edema noted similar to prior. Patient states her breathing has slightly improved and will attempt to wean off FiO2. He should is maintained on 40 mg of Lasix twice daily and will continue at this time. Pulmonary is following closely. Potassium was found to be 3.4 today and being replaced. Current creatinine is 1.29. Will repeat a.m. labs. Patient is maintained on Zosyn and will continue at this time. 01/27/2020 Patient is seen in follow-up today and states that her breathing has improved somewhat although continues to be on 3 L. Nursing staff assessed the patient and patient was 90% at rest. Patient states she does not normally use oxygen in the outpatient setting. Patient remains on IV antibiotics and will continue at this time. Creatinine worsening and is currently 1.44 with a potassium of 3.4. Potassium will be replaced. Lasix was discontinued and a BMP was obtained and is 408. Will repeat a chest x-ray in the morning and reevaluate for home O2. Currently biopsy and specimen analysis are still pending. No reports of chest pain or worsening shortness of breath. Patient is afebrile. No reports of nausea or vomiting and patient is tolerating diet. 01/28/2020 Patient is seen and evaluated in follow-up and continues to be short of breath and is currently maintained on 2 L of oxygen via nasal cannula. Chest x-ray today shows some interstitial edema, pleural effusions, and some fluid overload. Pulmonary following. Patient was given a dose of 40 mg IV Lasix once. Lasix has been on hold as creatinine continues to trend up and is currently 1.74 today. Nephrology consulted. Pathology from the EGD and fluid analysis from the thoracentesis are currently pending. Patient remains on oral prednisone along with bronchodilators and will continue at this time. Patient was having some nausea and given Zofran. Patient's oral intake continues to be poor as she states most of it makes her gassy and upsets her stomach. Patient continues to be quite lethargic and is fatigued today. No reports of chest pain or palpitations. Patient is afebrile. No reports of vomiting just intermittent nausea reported. Objective - Vital Signs Vital signs: Vital Signs Temp 97.6 F 01/28/20 05:22 Pulse 88 01/28/20 11:21 Resp 20 01/28/20 05:22 BP 127/74 01/28/20 05:22 Pulse Ox 95 01/28/20 07:13 Intake & Output 01/27/20 01/28/20 01/28/20 18:59 06:59 18:59 Intake Total 1100 Output Total 300 Balance 800 Intake: Intake, IV Titration 100 Amount Piperacillin-Tazobactam 3 100 .375 gm In Sodium Chloride 0.9% 100 ml @ 25 mls/hr IVPB Q8HR [facility] Rx# :[id number] Oral 1000 Output: Urine 300 Other: Voiding Method Bedside Commode Bedside Commode Bedside Commode # Voids 1 1 2 # Bowel Movements 1 2 - Exam Gen: This is a 85-year-old female sitting up in bed, asleep but arousable, alert and oriented 3, well-developed, well-nourished. HEENT: Head is atraumatic, normocephalic. Pupils equal, round. Sclerae is anicteric. NECK: Supple. No JVD. No lymphadenopathy. No thyromegaly. LUNGS: diminished breath sounds bilaterally with a few scattered rhonchi noted. No wheezing noted. No intercostal retractions. HEART: S1, S2 are muffled ABDOMEN: Soft. Bowel sounds are present. No masses. No tenderness. EXTREMITIES: No pedal edema. No calf tenderness. NEUROLOGICAL: Patient is asleep but arousable, alert and oriented x3. Cranial nerves 2 through 12 are grossly intact. - Labs CBC & Chem 7: 01/27/20 07:45 01/28/20 07:25 Labs: Abnormal Lab Results - Last 24 Hours (Table) 01/27/20 01/27/20 01/28/20 Range/Units 17:12 20:31 07:25 Carbon Dioxide 31 H (22-30) mmol/L BUN 73 H (7-17) mg/dL Creatinine 1.74 H (0.52-1.04) mg/dL Glucose 101 H (74-99) mg/dL POC Glucose (mg/dL) 103 H 230 H (75-99) mg/dL 01/28/20 Range/Units 11:45 Carbon Dioxide (22-30) mmol/L BUN (7-17) mg/dL Creatinine (0.52-1.04) mg/dL Glucose (74-99) mg/dL POC Glucose (mg/dL) 135 H (75-99) mg/dL Microbiology - Last 24 Hours (Table) 01/26/20 12:00 Gram Stain - Preliminary Pleural Fluid Body Fluid Culture - Preliminary 01/26/20 12:00 Acid Fast Bacilli Smear - Final Pleural Fluid Acid Fast Bacilli Culture - Preliminary Assessment and Plan Assessment: Shortness of breath, possibly secondary to pulmonary edema, pleural effusion, or congestive heart failure, acute on chronic diastolic dysfunction, echo with an EF of 55-60% Bilateral aspiration pneumonia, likely Thickened folds with nodularity of the mucosa involving the fundus and cardiac body of the stomach with diffuse gastritis status post multiple biopsies to rule out the possibility of an infiltrating neoplasm Fluid-filled esophagus. Rule out esophageal stricture or malignancy on the computed tomography scan Chronic intermittent bronchial asthma, acute exacerbation Mild to moderate tricuspid regurgitation, mild to moderate pulmonary hypertension and small generalized pericardial effusion on the 2-D echo Increased creatinine with possible mild acute renal failure with acute tubular necrosis with prerenal factors, present on admission, worsening, current creatinine is 1.74. Nephrology consulted and pending History of asthma History of hypothyroidism history of polymyalgia rheumatica Possible chronic obstructive pulmonary disease History of tonsillectomy History of kidney donation Hypokalemia, improving. Current potassium is 3.6 Computed tomography scan of the chest showing bilateral pleural effusion Increased WBC Possible mild acute urinary tract infection, present on admission Full code Recommendations and discussion: Recommend to continue current medications, management, and symptomatic treatment. Patient continues to require oxygen and discuss with nursing staff about weaning FiO2. Patient currently on 2 L via nasal cannula. Chest x-ray shows some volume overload and was given a one-time dose of IV Lasix. Creatinine continues to worsen and is currently 1.74 today. Nephrology consulted and pending at this time. Continue on antibiotics. Continue with bronchodilators and oral steroids at this time. Will repeat a.m. labs. Increase activity as tolerated. Will continue to monitor labs and vitals closely. Awaiting biopsy report. Further recommendations to follow. Prognosis is guarded. Possible discharge in 24-48 hours.
[2020-01-28] MEDS: HYDROcodone/APAP 5-325MG 1 EACH TAB PO PRN (13:28)
[2020-01-28 17:08] LABS: Glucose,Whole Blood 161 mg/dL (75-99)
[2020-01-28 19:54] LABS: Glucose,Whole Blood 144 mg/dL (75-99)
[2020-01-29] MEDS: PIPERACILLIN-TAZOBACTAM 3.375 GM in SODIUM CHLORIDE 0.9% 100 ML IVPB SCH ×3 (01:12→20:51)
[2020-01-29] MEDS: IPRATROPIUM-ALBUTEROL 3 ML NEB INHALATION SCH ×4 (07:14→19:12)
[2020-01-29 07:47] LABS: Basophils % (A) 0 %; Eosinophils # (A) 0.1 k/uL (0-0.7); Eosinophils % (A) 1 %; HCT 42.9 % (34.0-46.0); HGB 14.2 gm/dL (11.4-16.0); Lymphocytes # (A) 1.6 k/uL (1.0-4.8); Lymphocytes % (A) 11 %; MCH 30.8 pg (25.0-35.0); MCV 93.3 fL (80.0-100.0); Mean Platelet Volume 8.5; Monocytes # (A) 0.6 k/uL (0-1.0); Monocytes % (A) 4 %; Neutrophils % (A) 84 %; Platelet Count 195 k/uL (150-450); RDW 12.6 % (11.5-15.5); WBC 14.4 k/uL (3.8-10.6)
[2020-01-29] MEDS: INSULIN ASPART (NovoLOG) 100 UNIT/ML VIAL SQ SCH ×4 (08:00→20:50)
[2020-01-29 08:02] LABS: Calcium 8.8 mg/dL (8.4-10.2); Potassium 2.8 mmol/L (3.5-5.1)
[2020-01-29] MEDS: METOPROLOL TARTRATE 25 MG TAB PO SCH ×2 (08:08→19:37)
[2020-01-29] MEDS: HEPARIN SODIUM,PORCINE 5,000 UNIT/ML 1 ML VIAL SQ SCH ×2 (08:08→19:37)
[2020-01-29] MEDS: predniSONE 10 MG TAB PO SCH (08:08)
[2020-01-29] MEDS: PANTOPRAZOLE 40 MG/10 ML VIAL IVP SCH ×2 (08:08→19:37)
[2020-01-29] MEDS: THYROID, PORK 30 MG TAB PO SCH (08:12)
[2020-01-29 08:18] LABS: Glucose,Whole Blood 100 mg/dL (75-99)
[2020-01-29] MEDS ORDERED: MAG HYDROX/AL HYDROX/SIMETH 30 ML CUP PO PRN (10:13)
[2020-01-29 11:20] VITALS: BMI 23.4
[2020-01-29] MEDS ORDERED: POTASSIUM CHLORIDE ER 20 MEQ TAB.ER PO STA (11:35)
--- NOTE | 2020-01-29 11:35 | P.NPCON ---
History of Present Illness - Reason for Consult acute renal failure - Chief Complaint Kidney donor with acute kidney injury - History of Present Illness This is a 85-year-old female seen in consultation because of a status post kidney donation to her son 25 years ago( right kidney harvested), admitted with pneumonia and has acute kidney injury She donated a kidney to her son who was type I diabetic. Her baseline creatinine is 1.13 as of 01/19/2020 when she was admitted has gone up to 1.81 as of this morning She continues to have cough and shortness of breath but no fever chills no nausea vomiting does have diarrhea about 4-5 times small to moderate amount of stools. No abdominal pain. No dizziness no fever or chills. Does feel weak and tired and has a poor appetite There have been no hypotensive episodes and no nephrotoxic medications used and no dye studies. She had a computed tomography scan of the chest without dye. She did receive some diuretic doses and also had a tap done. Her past history significant for asthma. There is mention of polymyalgia rhe umatica but patient is not aware of it and was not on any steroids. Past Medical History Past Medical History: Asthma, Thyroid Disorder Additional Past Medical History / Comment(s): PMR History of Any Multi-Drug Resistant Organisms: None Reported Past Surgical History: Tonsillectomy Additional Past Surgical History / Comment(s): donated kidney Past Anesthesia/Blood Transfusion Reactions: No Reported Reaction Past Psychological History: No Psychological Hx Reported Smoking Status: Never smoker Past Alcohol Use History: None Reported Past Drug Use History: None Reported - Past Family History Father Family Medical History: Hypertension Mother Family Medical History: No Reported History Medications and Allergies Home Medications Medication Instructions Recorded Confirmed Type Albuterol Sulfate [Albuterol 2 puff PO RT-Q6H PRN 01/19/20 01/19/20 History Sulfate Hfa] HYDROcodone/APAP 5-325MG [[place] 1 tab PO QID PRN 01/19/20 01/19/20 History 5-325] Thyroid,Pork [[place] Thyroid] 90 mg PO DAILY@0800 01/19/20 01/19/20 History predniSONE 5 mg PO W/BRKFST 01/19/20 01/19/20 History Amoxic-Pot Clav 875-125Mg 1 tab PO Q12HR 7 Days #14 tab 01/27/20 Rx [Augmentin 875-125] Metoprolol Tartrate [Lopressor] 25 mg PO BID 30 Days #60 tab 01/27/20 Rx Pantoprazole [Protonix] 40 mg PO DAILY 30 Days #30 01/27/20 Rx tablet. Allergies Allergy/AdvReac Type Severity Reaction Status Date / Time No Known Allergies Allergy Verified 01/19/20 18:23 Physical Exam Vitals: Vital Signs Temp Pulse Pulse Pulse Pulse Pulse Pulse 01/29/20 11:10 84 01/29/20 11:01 80 01/29/20 08:00 82 01/29/20 07:31 88 01/29/20 07:14 88 01/29/20 04:26 97.9 F 82 01/28/20 20:06 97.7 F 95 01/28/20 19:15 88 01/28/20 19:07 88 01/28/20 15:33 72 01/28/20 15:22 72 01/28/20 13:50 95 87 103 H 90 01/28/20 12:53 97.6 F 105 H Pulse Resp BP Pulse Ox Pulse Ox Pulse Ox Pulse Ox 01/29/20 11:10 01/29/20 11:01 01/29/20 08:00 20 01/29/20 07:31 01/29/20 07:14 01/29/20 04:26 20 126/80 95 01/28/20 20:06 20 108/70 93 L 01/28/20 19:15 01/28/20 19:07 01/28/20 15:33 01/28/20 15:22 94 L 01/28/20 13:50 103 H 92 L 95 90 L 01/28/20 12:53 18 127/86 95 Pulse Ox Pulse Ox 01/29/20 11:10 01/29/20 11:01 01/29/20 08:00 01/29/20 07:31 01/29/20 07:14 01/29/20 04:26 01/28/20 20:06 01/28/20 19:15 01/28/20 19:07 01/28/20 15:33 01/28/20 15:22 01/28/20 13:50 92 L 88 L 01/28/20 12:53 Intake and Output 01/28/20 01/29/20 01/29/20 22:59 06:59 14:59 Intake Total 220 100 Output Total 300 Balance 220 100 -300 Intake: Intake, IV Titration 100 Amount Piperacillin-Tazobactam 3 100 .375 gm In Sodium Chloride 0.9% 100 ml @ 25 mls/hr IVPB Q8HR [facility] Rx# :[id number] Oral 220 Output: Urine 300 Other: Voiding Method Bedside Commode Bedside Commode # Voids 1 3 3 Weight 60 kg On examination awake alert oriented. She is small built HEENT exam no JVP neck supple no facial asymmetry Lungs are clear to auscultation fair air entry bilaterally. Heart sounds are unremarkable for any murmur rub gallop Abdomen soft nontender no organomegaly ascites masses Extremity exam was trace edema Neurologically awake alert oriented Results - Lab Results Most recent lab results Calcium 8.8 mg/dL (8.4-10.2) 01/29/20 06:40 Magnesium 1.9 mg/dL (1.6-2.3) 01/23/20 09:29 01/29/20 06:45 01/29/20 06:40 Assessment and Plan Assessment: Impression 1. Acute kidney injury secondary to pneumonia and possibly volume depletion. Rule out bladder outlet obstruction 2. 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 Chronic kidney disease with creatinine of 1.13 dated 01/19/2020, creatinine was 0.8 on 10/01/2019. Urinalysis on 01/20/2020, protein is negative RBCs 5 WBCs 9. 3. Hypokalemia secondary to GI losses from diarrhea and diuretics 4. Rule out magnesium deficiency 5. Diarrhea with C. diff negative dated 01/24/2020 6. Pneumonia, with negative colon 19 status Recommendation 1. Would gently hydrate her with IV normal saline at 50 an hour. 2. Check orthostatic changes 3. Check bladder scan 4. Ultrasound of the kidney solitary left. 5. Check serum magnesium 6. Replace potassium she would require about 80 mEq, can be given at 20 mg every 12 hours for 4 doses Thank you for this consultation and will continue to follow
[2020-01-29 12:09] LABS: Glucose,Whole Blood 120 mg/dL (75-99)
[2020-01-29] MEDS ORDERED: SODIUM CHLORIDE 0.9% 1,000 ML IV SCH (12:30)
--- NOTE | 2020-01-29 12:38 | US ---
EXAMINATION TYPE: US kidneys/renal and bladder DATE OF EXAM: 01/29/2020 COMPARISON: NONE CLINICAL HISTORY: renal failure. EXAM MEASUREMENTS: Right Kidney: donated Left Kidney: 10.8 x 5.4 x 5.1 cm Right Kidney: Surgically absent Left Kidney: mild hydro Bladder: wnl There is mild left hydronephrosis with no evidence of nephrolithiasis. Right kidney is surgically abs ent. Bladder distends normally. IMPRESSION: Mild right hydronephrosis
[2020-01-29] MEDS: HYDROcodone/APAP 5-325MG 1 EACH TAB PO PRN (14:19)
--- NOTE | 2020-01-29 14:54 | P.PN ---
Subjective Progress Note Date: 01/29/20 Principal diagnosis: This is an 85 year old female who was recently admitted with bilateral lung lesions and is being closely monitored. Patient recently underwent EGD with GI and multiple biopsies obtained and currently awaiting results. Patient is being evaluated and followed my multiple medical consultants. Pulmonary following as well and patient underwent chest ultrasound for possible Left pleural effusion thoracentesis. Patient continues to have shortness of breath and is maintained on 3L of 02 via NC and oral lasix 40 mg twice daily. Patient continues to be quite fatigued. Patient is maintained on Zithromax and Zosyn and will continue at this time. Creatinine slowly trending down and is currently 1.27. Will repeat am labs. Review of systems: Constitutional: Reports fatigue, no reports of fevers or chills Cardiovascular: No reports of chest pain or palpitations Respiratory: Reports shortness of breath, denies cough GI: no reports of nausea, vomiting, or diarrhea : no reports of dysuria or retention Neurovascular: no reports of numbness, reports some weakness 01/26/2020 Patient is seen and evaluated in follow-up status post thoracentesis of the left pleural effusion with approximately 900 mL's of fluid removed. Specimen was sent for analysis. Biopsy results still pending from EGD. Repeat chest x-ray after thoracentesis shows residual small left effusion after thoracentesis with no pneumothorax noted with mild interstitial edema noted similar to prior. Patient states her breathing has slightly improved and will attempt to wean off FiO2. He should is maintained on 40 mg of Lasix twice daily and will continue at this time. Pulmonary is following closely. Potassium was found to be 3.4 today and being replaced. Current creatinine is 1.29. Will repeat a.m. labs. Patient is maintained on Zosyn and will continue at this time. 01/27/2020 Patient is seen in follow-up today and states that her breathing has improved somewhat although continues to be on 3 L. Nursing staff assessed the patient and patient was 90% at rest. Patient states she does not normally use oxygen in the outpatient setting. Patient remains on IV antibiotics and will continue at this time. Creatinine worsening and is currently 1.44 with a potassium of 3.4. Potassium will be replaced. Lasix was discontinued and a BMP was obtained and is 408. Will repeat a chest x-ray in the morning and reevaluate for home O2. Currently biopsy and specimen analysis are still pending. No reports of chest pain or worsening shortness of breath. Patient is afebrile. No reports of nausea or vomiting and patient is tolerating diet. 01/28/2020 Patient is seen and evaluated in follow-up and continues to be short of breath and is currently maintained on 2 L of oxygen via nasal cannula. Chest x-ray today shows some interstitial edema, pleural effusions, and some fluid overload. Pulmonary following. Patient was given a dose of 40 mg IV Lasix once. Lasix has been on hold as creatinine continues to trend up and is currently 1.74 today. Nephrology consulted. Pathology from the EGD and fluid analysis from the thoracentesis are currently pending. Patient remains on oral prednisone along with bronchodilators and will continue at this time. Patient was having some nausea and given Zofran. Patient's oral intake continues to be poor as she states most of it makes her gassy and upsets her stomach. Patient continues to be quite lethargic and is fatigued today. No reports of chest pain or palpitations. Patient is afebrile. No reports of vomiting just intermittent nausea reported. 01/29/2020 Patient is seen in follow-up and continues to be extremely fatigued and weak with shortness of breath and is being closely monitored. Patient's creatinine continue to elevate and nephrology was consulted and is following. Multiple medical consultations also following. Patient's creatinine today is 1.81 with a BUN of 66. Potassium was also found to be extremely low at 2.8 and will be replaced. Magnesium is 1.8 today. Patient is maintained on oral steroids and will continue with IV antibiotics at this time. Pathology and fluid analysis still currently pending at this time. Patient was also found to be orthostatic. Patient's oral intake continues to be quite poor and patient has been refusing incentive spirometer and is complaining of a lot of gas and bloating. Patient is also currently still maintained on 2 L of oxygen via nasal cannula. Di scussed with the patient about increasing oral intake and at least continuing with ensure and increasing activity as tolerated and getting up out of the bed more often. Review of systems: Constitutional: Reports generalized fatigue, no reports of fever or chills Cardiovascular: No reports of chest pain or palpitations Respiratory: reports shortness of breath, no reports of cough GI: No reports of dysuria or retention : No reports of nausea, vomiting, or diarrhea, reports gas and bloating Neurovascular: Reports generalized weakness, no reports of numbness Active Medications Acetaminophen (Tylenol Tab) 500 mg PO Q6HR PRN PRN Reason: Fever and/ or Pain Hydrocodone Bitart/Acetaminophen ([place] 5-325) 1 each PO QID PRN PRN Reason: Pain Last Admin: 01/29/20 14:19 Dose: 1 each Documented by: Al Hydroxide/Mg Hydroxide (Maalox) 30 ml PO Q4HR PRN PRN Reason: GI Upset Albuterol/Ipratropium (Duoneb 0.5 Mg-3 Mg/3 Ml Soln) 3 ml INHALATION RT-QID [facility] Last Admin: 01/29/20 11:01 Dose: 3 ml Documented by: Albuterol/Ipratropium (Duoneb 0.5 Mg-3 Mg/3 Ml Soln) 3 ml INHALATION RT-Q2H PRN PRN Reason: Shortness Of Breath Or Wheezing Heparin Sodium (Porcine) (Heparin) 5,000 unit SQ Q12HR [facility] Last Admin: 01/29/20 08:08 Dose: 5,000 unit Documented by: Piperacillin Sod/Tazobactam (Sod 3.375 gm/ Sodium Chloride) 100 mls @ 25 mls/hr IVPB Q8HR [facility] Last Admin: 01/29/20 08:09 Dose: 25 mls/hr Documented by: Insulin Aspart (Novolog) 0 unit SQ ACHS [facility]; Protocol Last Admin: 01/29/20 12:12 Dose: Not Given Documented by: Metoprolol Tartrate (Lopressor) 25 mg PO BID [facility] Last Admin: 01/29/20 08:08 Dose: 25 mg Documented by: Miscellaneous Information (Magnesium Per Protocol) 1 each MISCELLANE DAILY PRN; Protocol PRN Reason: Per Protocol Miscellaneous Information (Potassium Per Protocol) 1 each MISCELLANE DAILY PRN; Protocol PRN Reason: Per Protocol Naloxone HCl (Narcan) 0.2 mg IV Q2M PRN PRN Reason: Opioid Reversal Ondansetron HCl (Zofran) 4 mg IVP Q6HR PRN PRN Reason: Nausea And Vomiting Pantoprazole Sodium (Protonix) 40 mg IVP BID [facility] Last Admin: 01/29/20 08:08 Dose: 40 mg Documented by: Prednisone () 30 mg PO DAILY [facility] Last Admin: 01/29/20 08:08 Dose: 30 mg Documented by: Thyroid ([place] Thyroid) 90 mg PO DAILY@0800 [facility] Last Admin: 01/29/20 08:12 Dose: 90 mg Documented by: Objective - Vital Signs Vital signs: Vital Signs Temp 98.2 F 01/29/20 12:47 Pulse 77 01/29/20 12:47 Resp 19 01/29/20 12:47 BP 145/85 01/29/20 12:47 Pulse Ox 95 01/29/20 04:26 Intake & Output 01/28/20 01/29/20 01/29/20 18:59 06:59 18:59 Intake Total 1620 320 600 Output Total 300 Balance 1620 320 300 Weight 60 kg Intake: Intake, IV Titration 100 600 Amount Piperacillin-Tazobactam 3 100 .375 gm In Sodium Chloride 0.9% 100 ml @ 25 mls/hr IVPB Q8HR [facility] Rx# :[id number] Sodium Chloride 0.9% 1, 600 000 ml @ 75 mls/hr IV . [id number] [facility] Rx#:[id number] Oral 1620 220 Output: Urine 300 Other: Voiding Method Bedside Commode Bedside Commode Bedside Commode # Voids 4 3 3 # Bowel Movements 2 - Exam Gen: This is a 85-year-old female sitting up in bed, asleep but arousable, alert and oriented 3, well-developed, well-nourished. Temp is 97.9F, pulse is 82, respirations are 20, blood pressure is 126/80, oxygen saturation is 95% on 2 L via nasal cannula. HEENT: Head is atraumatic, normocephalic. Pupils equal, round. Sclerae is anicteric. NECK: Supple. No JVD. No lymphadenopathy. No thyromegaly. LUNGS: diminished breath sounds bilaterally with a few scattered rhonchi and crackles noted. No wheezing noted. No intercostal retractions. HEART: S1, S2 are muffled ABDOMEN: Soft. Bowel sounds are present. No masses. No tenderness. EXTREMITIES: No pedal edema. No calf tenderness. NEUROLOGICAL: Patient is asleep but arousable, alert and oriented x3. Diffusely weak - Labs CBC & Chem 7: 01/29/20 06:45 01/29/20 06:40 Labs: Abnormal Lab Results - Last 24 Hours (Table) 01/28/20 01/28/20 01/29/20 Range/Units 17:06 19:54 06:40 WBC (3.8-10.6) k/uL Neutrophils # (1.3-7.7) k/uL Potassium 2.8 L (3.5-5.1) mmol/L BUN 66 H (7-17) mg/dL Creatinine 1.81 H (0.52-1.04) mg/dL POC Glucose (mg/dL) 161 H 144 H (75-99) mg/dL 01/29/20 01/29/20 01/29/20 Range/Units 06:45 07:58 11:14 WBC 14.4 H (3.8-10.6) k/uL Neutrophils # 12.0 H (1.3-7.7) k/uL Potassium (3.5-5.1) mmol/L BUN (7-17) mg/dL Creatinine (0.52-1.04) mg/dL POC Glucose (mg/dL) 100 H 120 H (75-99) mg/dL Assessment and Plan Assessment: Shortness of breath, possibly secondary to pulmonary edema, pleural effusion, or congestive heart failure, acute on chronic diastolic dysfunction, echo with an EF of 55-60% Bilateral aspiration pneumonia, likely Thickened folds with nodularity of the mucosa involving the fundus and cardiac body of the stomach with diffuse gastritis status post multiple biopsies to rule out the possibility of an infiltrating neoplasm Fluid-filled esophagus. Rule out esophageal stricture or malignancy on the computed tomography scan Chronic intermittent bronchial asthma, acute exacerbation Mild to moderate tricuspid regurgitation, mild to moderate pulmonary hypertension and small generalized pericardial effusion on the 2-D echo Increased creatinine with possible mild acute renal failure with acute tubular necrosis with prerenal factors, present on admission, worsening, current creatinine is 1.74. Nephrology consulted and pending History of asthma History of hypothyroidism history of polymyalgia rheumatica Possible chronic obstructive pulmonary disease History of tonsillectomy History of kidney donation Hypokalemia Computed tomography scan of the chest showing bilateral pleural effusion Increased WBC Possible mild acute urinary tract infection, present on admission Full code Recommendations and discussion: Recommend to continue current medications, management, and symptomatic treatment. Patient continues to require oxygen and discuss with nursing staff about weaning FiO2. Patient currently on 2 L via nasal cannula. Most recent Chest x-ray shows some volume overload. Will repeat chest x-ray. Discontinue IV fluids and patient encouraged to increase oral intake and continue with ensures twice daily as her intake has been very poor. Patient also instructed to continue using incentive spirometer at least 10 times every hour and needs strict encouragement to continue with this. Patient continues to refuse stating it makes her gassy. Creatinine continues to worsen and is currently 1.81 today. Nephrology consulted. Continue on antibiotics. Continue with bronchodilators and oral steroids at this time. Will repeat a.m. labs. Increase activity as t olerated. Will continue to monitor labs and vitals closely. Awaiting biopsy report. Further recommendations to follow. Due to multiple complex medical issues, Prognosis is extremely guarded.
[2020-01-29 17:17] LABS: Glucose,Whole Blood 192 mg/dL (75-99)
[2020-01-29 20:20] LABS: Glucose,Whole Blood 127 mg/dL (75-99)
[2020-01-30] MEDS: HYDROcodone/APAP 5-325MG 1 EACH TAB PO PRN ×4 (00:50→20:51)
[2020-01-30 06:39] LABS: Basophils # (A) 0.1 k/uL (0-0.2); Basophils % (A) 0 %; Eosinophils # (A) 0.1 k/uL (0-0.7); Eosinophils % (A) 1 %; HCT 45.1 % (34.0-46.0); HGB 14.5 gm/dL (11.4-16.0); Lymphocytes # (A) 1.9 k/uL (1.0-4.8); Lymphocytes % (A) 12 %; MCHC 32.2 g/dL (31.0-37.0); MCV 93.1 fL (80.0-100.0); Mean Platelet Volume 8.4; Monocytes # (A) 0.6 k/uL (0-1.0); Monocytes % (A) 4 %; Neutrophils % (A) 82 %; Platelet Count 177 k/uL (150-450); RBC 4.84 m/uL (3.80-5.40); RDW 12.9 % (11.5-15.5); WBC 15.9 k/uL (3.8-10.6)
[2020-01-30 06:42] LABS: Calcium 8.7 mg/dL (8.4-10.2); Potassium 3.6 mmol/L (3.5-5.1)
[2020-01-30 06:53] LABS: Glucose,Whole Blood 121 mg/dL (75-99)
[2020-01-30] MEDS: IPRATROPIUM-ALBUTEROL 3 ML NEB INHALATION SCH ×4 (07:28→21:19)
[2020-01-30] MEDS: INSULIN ASPART (NovoLOG) 100 UNIT/ML VIAL SQ SCH ×4 (07:58→20:37)
[2020-01-30] MEDS: METOPROLOL TARTRATE 25 MG TAB PO SCH ×2 (07:59→20:42)
[2020-01-30] MEDS: HEPARIN SODIUM,PORCINE 5,000 UNIT/ML 1 ML VIAL SQ SCH ×2 (07:59→20:42)
[2020-01-30] MEDS: PANTOPRAZOLE 40 MG/10 ML VIAL IVP SCH (07:59)
[2020-01-30] MEDS: predniSONE 10 MG TAB PO SCH (07:59)
[2020-01-30] MEDS: THYROID, PORK 30 MG TAB PO SCH (08:00)
[2020-01-30] MEDS: PIPERACILLIN-TAZOBACTAM 3.375 GM in SODIUM CHLORIDE 0.9% 100 ML IVPB SCH ×2 (08:00→20:42)
[2020-01-30] MEDS: ONDANSETRON 4 MG/2 ML VIAL IVP PRN (08:09)
--- NOTE | 2020-01-30 09:35 | XR ---
EXAMINATION TYPE: XR chest 1V portable DATE OF EXAM: 01/30/2020 COMPARISON: 01/28/2020 INDICATION: CHF TECHNIQUE: Single frontal view of the chest is obtained. FINDINGS: The heart size is normal. The pulmonary vasculature is prominent especially centrally. Perihilar increased infiltrates are present. A small left pleural effusion is present. Minimal right pleural effusion is present. Findings have slight improvement from comparison. IMPRESSION: 1. Clinical correlation recommended for congestive heart failure with slight improvement from compari son.
[2020-01-30 11:26] LABS: Glucose,Whole Blood 124 mg/dL (75-99)
--- NOTE | 2020-01-30 12:38 | P.PN ---
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 Her baseline creatinine is 1.13 as of 01/19/2020 when she was admitted has gone up to 1.81 as of 01/29/2020. She was deemed to have acute kidney injury from prerenal from volume depletion from nausea and decreased intake occasional vomiting and diarrhea. She did receive some diuretic doses and also had a tap done. Orthostatic changes shows blood pressure 145/85 with a heart rate of 77 lying down and standing up was 93/67 with a heart rate of 96 suggestive of significant volume depletion She was started on IV fluids 50 mL an hour. This is because of concern for congestive heart failure Her past history significant for asthma. There is mention of polymyalgia rheumatica but patient is not aware of it and was not on any steroids. Objective - Vital Signs Vital signs: Vital Signs Temp 98.0 F 01/30/20 11:10 Pulse 74 01/30/20 11:25 Resp 20 01/30/20 11:10 BP 135/82 01/30/20 11:10 Pulse Ox 92 L 01/30/20 11:10 Intake & Output 01/29/20 01/30/20 01/30/20 18:59 06:59 18:59 Intake Total 600 100 Output Total 600 Balance 0 100 Weight 60 kg Intake: Intake, IV Titration 600 100 Amount Piperacillin-Tazobactam 3 100 .375 gm In Sodium Chloride 0.9% 100 ml @ 25 mls/hr IVPB Q12HR [facility] Rx #:[id number] Sodium Chloride 0.9% 1, 600 000 ml @ 75 mls/hr IV . [id number] [facility] Rx#:[id number] Output: Urine 600 Other: Voiding Method Bedside Commode Bedside Commode Bedside Commode # Voids 3 3 On examination awake alert oriented. She is small built HEENT exam no JVP neck supple no facial asymmetry Lungs exam was significant for occasional coarse crackle bilaterally otherwise unremarkable Heart sounds are unremarkable for any murmur rub gallop Abdomen soft nontender no organomegaly ascites masses Extremity exam was trace edema Neurologically awake alert oriented - Labs CBC & Chem 7: 01/30/20 05:24 01/30/20 05:24 Labs: Abnormal Lab Results - Last 24 Hours (Table) 01/29/20 01/29/20 01/30/20 Range/Units 17:15 20:19 05:24 WBC 15.9 H (3.8-10.6) k/uL Neutrophils # 13.0 H (1.3-7.7) k/uL BUN (7-17) mg/dL Creatinine (0.52-1.04) mg/dL POC Glucose (mg/dL) 192 H 127 H (75-99) mg/dL 01/30/20 01/30/20 01/30/20 Range/Units 05:24 06:51 11:11 WBC (3.8-10.6) k/uL Neutrophils # (1.3-7.7) k/uL BUN 64 H (7-17) mg/dL Creatinine 1.63 H (0.52-1.04) mg/dL POC Glucose (mg/dL) 121 H 124 H (75-99) mg/dL Assessment and Plan Assessment: Impression 1. Acute kidney injury secondary to pneumonia and possibly volume depletion. Ultrasound demonstrated mild hydronephrosis is of the solitary left kidney 2. Mild hydronephrosis solitary left kidney 2. 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 Chronic kidney disease with creatinine of 1.13 dated 01/19/2020, creatinine was 0.8 on 10/01/2019. Urinalysis on 01/20/2020, protein is negative RBCs 5 WBCs 9. 3. Hypokalemia secondary to GI losses from diarrhea and diuretics. Replaced potassium and resolved potassium is 3.6 4. Diarrhea with C. diff negative dated 01/24/2020 6. Pneumonia, with negative COVID- 19 status Recommendation 1. Continue gentle hydration at 50 mL of normal saline per hour . 2. Consult urology regarding the mild hydro-on the left 3. Monitor urine output blood pressure orthostatic changes and labs
--- NOTE | 2020-01-30 14:57 | CT ---
EXAMINATION TYPE: CT renal stones wo con DATE OF EXAM: 01/30/2020 COMPARISON: None HISTORY: Hydronephrosis CT DLP: 267.3 mGycm Automated exposure control for dose reduction was used. Multiple axial sections were obtained from the diaphragm to the floor the pelvis without contrast. There are bilateral pleural effusions. There is patchy airspace consolidation and atelectasis at the lung bases. Liver shows no focal defect. The bile ducts are not dilated. Gallbladder has normal size. Spleen is i ntact. There is no evidence of pancreatic mass. Gastric wall appears diffusely thickened. Extensive sigmoid diverticulosis without sign of diverticulitis. Right kidney is absent. The left kidney is large and shows hydronephrosis. There is 5 mm calcificatio n that appears to be a phlebolith at the medial aspect of the left kidney. There is left side periure teral edema. There are numerous vascular calcifications in the pelvis. It is difficult to determine i f there is a calculus in the distal left ureter. There is extensive sigmoid diverticulosis. There is mild diffuse mesenteric edema. There is some free fluid in the cul-de-sac. Uterus is anteverted. There is calcified uterine fibroids. I see no sign of a bowel obstruction. Appendix has normal size. There are spondylotic changes in the lumbar spine. Th ere is a degenerative first-degree L4-5 spondylolisthesis. Bony pelvis appears intact. IMPRESSION: Pleural effusions and free fluid in the abdomen. Bilateral lower lobe patchy pulmonary consolidation and atelectasis. This could relate to chronic congestive heart failure. Mesenteric edema also consist ent with heart failure. Left-sided hydronephrosis and hydroureter. Ureteral stone not identified. Limited exam.Distal uretera l obstruction is suspected. Gastric wall thickening suggestive of nonspecific gastritis.
[2020-01-30 17:02] LABS: Glucose,Whole Blood 164 mg/dL (75-99)
[2020-01-30] MEDS: SODIUM CHLORIDE 0.9% 1,000 ML IV SCH (17:12)
--- NOTE | 2020-01-30 19:51 | PN ---
PROGRESS NOTE DATE OF SERVICE: 01/29/2010 This 85-year-old woman was admitted with multiple medical issues including bilateral ( ), suspected CHF and aspiration pneumonia. The patient has pleural effusion also which is tapped. Biopsy from the esophageal lesions are pending at this time. Patient is being closely monitored. Patient short of breath. The patient also has some diarrhea. The patient also has renal failure. PAST MEDICAL HISTORY: Reviewed. REVIEW OF SYSTEMS: CARDIOVASCULAR SYSTEM No angina. RESPIRATORY As mentioned earlier. GI As mentioned earlier. As mentioned earlier. NERVOUS SYSTEM: No numbness or weakness.. CURRENT MEDICATIONS: 1. Tylenol p.r.n. 2. Walker 5 mg q.i.d. p.r.n. 3. Maalox. 4. DuoNeb q.i.d. and p.r.n. 5. Heparin. 6. Lopressor. 7. Replacement protocol. 8. Narcan. 9. Protonix. 10.Zosyn IV. 11.Saline at 50 mL/hour. PHYSICAL EXAM: Patient is alert oriented x3. Pulse 79, blood pressure 130/80, respiration 20, temperature 98 degrees, pulse ox 94% on 3 L. HEENT: Conjunctivae normal. Oral mucosa moist. NECK: No jugular venous distention. No lymph node enlargement. CARDIOVASCULAR: S1, S2, muffled. No S3, no S4, RESPIRATORY: Diminished breath sounds at the bases. Bilateral scattered rhonchi and crackles. ABDOMEN: Soft, nontender. LEGS: No edema, no swelling. NERVOUS SYSTEM: Higher functions mentioned earlier. Moves all four limbs. No focal motor or sensory deficits. LYMPHATICS: No lymph node in neck or axilla. SKIN: No rash. JOINTS: No active deforming arthropathy. LAB STUDIES: WBC 15.9 and creatinine is 1.63. ASSESSMENT: 1. Shortness of breath possibly secondary to pulmonary edema and pleural effusion, congestive heart failure acute exacerbation, acute on chronic diastolic dysfunction, ejection fraction 50-60%, present on admission. 2. Bilateral aspiration pneumonia. 3. Thickened false of the nodularity of the mucosa involving the fundus and cardia of the stomach with diffuse gastritis status post biopsy. Final report is pending. 4. Fluid-filled esophagus. 5. Chronic intermittent bronchial asthma. 6. Acute on chronic renal failure with acute tubular necrosis. 7. Mild to moderate tricuspid regurgitation and mild to moderate pulmonary hypertension versus small generalized pericardial effusion. 8. Increased creatinine. 9. History of asthma. 10.Hypothyroidism. 11.History of polymyalgia rheumatica. 12.History of chronic obstructive pulmonary disease. 13.History of tonsillectomy. 14.History of kidney donation. 15.Hypokalemia. 16.CT scan of the chest showing bilateral pleural effusion. 17.Increased WBC. 18.Possible mild acute urinary tract infection present on admission. 19.FULL CODE. RECOMMENDATIONS AND DISCUSSION: I recommend to continue current management and symptomatic treatment. Otherwise, at this time I recommend continue the bronchodilators, continue with empiric antibiotics. Otherwise, cautious hydration, repeat labs. Guarded prognosis because of multiple complex medical issues. I would also recommend repeat COVID-19 testing also. Further recommendations to follow. MMODL / IJN: [id number] /
[2020-01-30 20:21] LABS: Glucose,Whole Blood 120 mg/dL (75-99)
[2020-01-30] MEDS: PANTOPRAZOLE 40 MG TABLET PO SCH (20:42)
[2020-01-30 23:50] LABS: Appearance,Urine Clear (Clear); Bacteria,Urine Rare /hpf; Bilirubin,Urine Negative (Negative); Blood,Urine Small (Negative); Color,Urine Yellow; Glucose,Urine (UA) Negative (Negative); Hyaline Casts,Urine 1 /lpf (0-2); Ketones,Urine Negative (Negative); Leukocyte Esterase,Urine Negative (Negative); Mucus,Urine Rare /hpf; Nitrite,Urine Negative (Negative); Protein,Urine Negative (Negative); RBC,Urine 16 /hpf (0-5); Specific Gravity,Urine 1.018 (1.001-1.035); Squamous Epithelial Cell,Urine <1 /hpf (0-4); Urobilinogen,Urine <2.0 mg/dL (<2.0); WBC,Urine 4 /hpf (0-5)
[2020-01-31] MEDS: ONDANSETRON 4 MG/2 ML VIAL IVP PRN (03:47)
[2020-01-31 07:01] LABS: Glucose,Whole Blood 112 mg/dL (75-99)
[2020-01-31] MEDS: IPRATROPIUM-ALBUTEROL 3 ML NEB INHALATION SCH ×4 (07:08→18:47)
[2020-01-31] MEDS: HYDROcodone/APAP 5-325MG 1 EACH TAB PO PRN (07:17)
[2020-01-31] MEDS: PIPERACILLIN-TAZOBACTAM 3.375 GM in SODIUM CHLORIDE 0.9% 100 ML IVPB SCH ×2 (07:20→20:49)
[2020-01-31] MEDS: PANTOPRAZOLE 40 MG TABLET PO SCH ×2 (07:21→20:48)
[2020-01-31] MEDS: HEPARIN SODIUM,PORCINE 5,000 UNIT/ML 1 ML VIAL SQ SCH ×2 (07:21→20:48)
[2020-01-31] MEDS: METOPROLOL TARTRATE 25 MG TAB PO SCH ×2 (07:21→20:48)
[2020-01-31] MEDS: predniSONE 10 MG TAB PO SCH (07:21)
[2020-01-31] MEDS: THYROID, PORK 30 MG TAB PO SCH (07:21)
[2020-01-31] MEDS: INSULIN ASPART (NovoLOG) 100 UNIT/ML VIAL SQ SCH ×4 (07:22→20:46)
[2020-01-31 07:23] LABS: Basophils % (A) 0 %; Eosinophils # (A) 0.1 k/uL (0-0.7); Eosinophils % (A) 1 %; HCT 43.1 % (34.0-46.0); HGB 13.9 gm/dL (11.4-16.0); Lymphocytes # (A) 1.4 k/uL (1.0-4.8); Lymphocytes % (A) 9 %; MCH 30.8 pg (25.0-35.0); MCHC 32.4 g/dL (31.0-37.0); Mean Platelet Volume 8.4; Monocytes # (A) 0.6 k/uL (0-1.0); Monocytes % (A) 3 %; Neutrophils # (A) 14.1 k/uL (1.3-7.7); Neutrophils % (A) 87 %; Platelet Count 187 k/uL (150-450); RBC 4.53 m/uL (3.80-5.40); RDW 12.7 % (11.5-15.5); WBC 16.2 k/uL (3.8-10.6)
[2020-01-31 07:37] LABS: Calcium 8.8 mg/dL (8.4-10.2); Potassium 3.6 mmol/L (3.5-5.1)
[2020-01-31] MEDS ORDERED: MORPHINE SULFATE 4 MG/ML SYRINGE IVP STA (08:32)
--- NOTE | 2020-01-31 10:00 | P.GSCN ---
History of Present Illness Consult date: 01/31/20 Reason for Consult: left hydronephrosis History of present illness: Ms Cannon is an 85-year-old female admitted to the hospital with pneumonia and has acute kidney injury. She has hx of right sided kidney donation for transplant . Her baseline creatinine is 1.13 as of 01/19/2020, her creat is currently 1.76. She had a CT abdomen and pelvis which showe left sided hydronephrosis, no stone visualized along the course of the ureter. denies any hx of kidney stones. Denies any hx of gross hematuria. Denies any flank pain at this time. no previous surgeries Review of Systems - Constitutional Denies chills, Denies fever - EENT Ears, nose, mouth and throat: Denies dysphagia, Denies headache - Cardiovascular Reports dyspnea on exertion, Denies chest pain - Respiratory Reports dyspnea, Denies cough - Gastrointestinal Denies abdominal pain, Denies nausea, Denies vomiting - Genitourinary Genitourinary: Denies dysuria, Denies flank pain Past Medical History Past Medical History: Asthma, Thyroid Disorder Additional Past Medical History / Comment(s): PMR History of Any Multi-Drug Resistant Organisms: None Reported Past Surgical History: Tonsillectomy Additional Past Surgical History / Comment(s): donated kidney Past Anesthesia/Blood Transfusion Reactions: No Reported Reaction Past Psychological History: No Psychological Hx Reported Smoking Status: Never smoker Past Alcohol Use History: None Reported Past Drug Use History: None Reported - Past Family History Father Family Medical History: Hypertension Mother Family Medical History: No Reported History Medications and Allergies Home Medications Medication Instructions Recorded Confirmed Type Albuterol Sulfate [Albuterol 2 puff PO RT-Q6H PRN 01/19/20 01/19/20 History Sulfate Hfa] HYDROcodone/APAP 5-325MG [[place]rell 1 tab PO QID PRN 01/19/20 01/19/20 History 5-325] Thyroid,Pork [[place] Thyroid] 90 mg PO DAILY@0800 01/19/20 01/19/20 History predniSONE 5 mg PO W/BRKFST 01/19/20 01/19/20 History Amoxic-Pot Clav 875-125Mg 1 tab PO Q12HR 7 Days #14 tab 01/27/20 Rx [Augmentin 875-125] Metoprolol Tartrate [Lopressor] 25 mg PO BID 30 Days #60 tab 01/27/20 Rx Pantoprazole [Protonix] 40 mg PO DAILY 30 Days #30 01/27/20 Rx tablet. Allergies Allergy/AdvReac Type Severity Reaction Status Date / Time No Known Allergies Allergy Verified 01/19/20 18:23 Surgical - Exam Vital Signs Temp Pulse Resp BP Pulse Ox 98 F 103 H 20 129/82 93 L 01/19/20 15:45 01/19/20 15:45 01/19/20 15:45 01/19/20 15:45 01/19/20 15:45 - General no distress, no pain - Eyes PERRL, normal ocular movement - ENT normal mucosa, no no hearing loss - Respiratory normal expansion, other (increased respiratory effort ) - Abdomen Abdomen: soft, non tender - Psychiatric oriented to time, oriented to person, oriented to place, speech is normal Results - Labs 01/31/20 05:57 01/31/20 05:57 Abnormal Lab Results - Last 24 Hours (Table) 01/30/20 01/30/20 01/30/20 Range/Units 11:11 16:58 20:19 WBC (3.8-10.6) k/uL Neutrophils # (1.3-7.7) k/uL BUN (7-17) mg/dL Creatinine (0.52-1.04) mg/dL POC Glucose (mg/dL) 124 H 164 H 120 H (75-99) mg/dL Urine Blood (Negative) Urine RBC (0-5) /hpf Urine Bacteria (None) /hpf Urine Mucus (None) /hpf 01/30/20 01/31/20 01/31/20 Range/Units 23:10 05:57 05:57 WBC 16.2 H (3.8-10.6) k/uL Neutrophils # 14.1 H (1.3-7.7) k/uL BUN 62 H (7-17) mg/dL Creatinine 1.76 H (0.52-1.04) mg/dL POC Glucose (mg/dL) (75-99) mg/dL Urine Blood Small H (Negative) Urine RBC 16 H (0-5) /hpf Urine Bacteria Rare H (None) /hpf Urine Mucus Rare H (None) /hpf 01/31/20 Range/Units 06:59 WBC (3.8-10.6) k/uL Neutrophils # (1.3-7.7) k/uL BUN (7-17) mg/dL Creatinine (0.52-1.04) mg/dL POC Glucose (mg/dL) 112 H (75-99) mg/dL Urine Blood (Negative) Urine RBC (0-5) /hpf Urine Bacteria (None) /hpf Urine Mucus (None) /hpf Microbiology - Last 24 Hours (Table) 01/26/20 12:00 Gram Stain - Final Pleural Fluid Body Fluid Culture - Final Diabetes panel 01/31/20 Range/Units 05:57 Sodium 139 (137-145) mmol/L Potassium 3.6 (3.5-5.1) mmol/L Chloride 106 (98-107) mmol/L Carbon Dioxide 25 (22-30) mmol/L BUN 62 H (7-17) mg/dL Creatinine 1.76 H (0.52-1.04) mg/dL Glucose 91 (74-99) mg/dL Calcium 8.8 (8.4-10.2) mg/dL Calcium panel 01/31/20 Range/Units 05:57 Calcium 8.8 (8.4-10.2) mg/dL Pituitary panel 01/31/20 Range/Units 05:57 Sodium 139 (137-145) mmol/L Potassium 3.6 (3.5-5.1) mmol/L Chloride 106 (98-107) mmol/L Carbon Dioxide 25 (22-30) mmol/L BUN 62 H (7-17) mg/dL Creatinine 1.76 H (0.52-1.04) mg/dL Glucose 91 (74-99) mg/dL Calcium 8.8 (8.4-10.2) mg/dL Adrenal panel 01/31/20 Range/Units 05:57 Sodium 139 (137-145) mmol/L Potassium 3.6 (3.5-5.1) mmol/L Chloride 106 (98-107) mmol/L Carbon Dioxide 25 (22-30) mmol/L BUN 62 H (7-17) mg/dL Creatinine 1.76 H (0.52-1.04) mg/dL Glucose 91 (74-99) mg/dL Calcium 8.8 (8.4-10.2) mg/dL - Imaging CT scan - abdomen: image reviewed (left sided hydronephrosis) Assessment and Plan Assessment: 85 yo female admitted to the hospital with pneumonia and MAYRA. She underwent a CT abd/pelvis which showed left sided hydronephrosis, no stones visualized along the course of ureter. of note she has a solitary kidney Creat 1.76 from baseline of 1.1-1.2 Plan: -Given her solitary kidney, hydronephrosis and MAYRA I discussed with patient and her son Bill that I recommend we proceed with left sided stent placement. They both agreed to proceed with cysto and left stent placement
[2020-01-31 11:09] LABS: Glucose,Whole Blood 140 mg/dL (75-99)
--- NOTE | 2020-01-31 11:18 | P.PN ---
Progress Note - Text Progress Note Date: 01/31/20 Following family discussion they declined to proceed with any surgical intervention at this point. I did discuss with them given her MAYRA and solitary kidney and hydronephrosis, I do recommend that she proceeds with stent placement. I discussed the risk of further worsening her kidney function if we hold off on proceeding with stent placement. I also discussed the potential of progressing to dialysis. They still declined to proceed at this time and they want to discuss further among themselves. At this time will cancel the surgery will keep her NPO past MN, if creat fails to trend down then will potentially proceed with stent placement
--- NOTE | 2020-01-31 11:20 | P.PN ---
Subjective Progress Note Date: 01/31/20 Principal diagnosis: This is a 85-year-old female seen in consultation because of a status post kidney donation to her son 25 years ago( right kidney harvested), admitted with pneumonia and has acute kidney injury. Workup has shown left hydronephrosis and seen on both ultrasound and CAT scan. Additionally she has significant orthostatic changes and therefore was volume depleted, from a combination of decreased intake diuretics and she was given IV fluids. Urology was consulted. Family has requested that it be postponed. I spoke to the and told him that it needs to be done as she has a solitary kidney and there is damage to the kidney if the obstruction is not relieved and that they should not wait. If need be taken transfer her to a hospital where they feel more comfortable if that is an issue. Patient is somewhat upset regarding her family's decision . She donated a kidney to her son who was type I diabetic. Her baseline creatinine is 1.13 as of 01/19/2020 when she was admitted has gone up to 1.81 as of 01/29/2020. Her past history significant for asthma. There is mention of polymyalgia rheumatica but patient is not aware of it and was not on any steroids. Objective - Vital Signs Vital signs: Vital Signs Temp 97.7 F 01/31/20 05:04 Pulse 92 01/31/20 07:19 Resp 16 01/31/20 05:04 BP 124/85 01/31/20 05:04 Pulse Ox 94 L 01/31/20 05:04 Intake & Output 01/30/20 01/31/20 01/31/20 18:59 06:59 18:59 Intake Total 175 Output Total 300 Balance -300 175 Intake: Intake, IV Titration 175 Amount Sodium Chloride 0.9% 1, 175 000 ml @ 50 mls/hr IV . Q20H [facility] Rx#:[id number] Output: Urine 300 Other: Voiding Method Bedside Commode Bedside Commode Bedside Commode # Voids 1 3 Examination awake alert oriented somewhat short of breath on nasal cannula 2 L with adequate saturation HEENT exam no JVP neck is supple no facial asymmetry Lungs are significant for bilateral occasional wheeze with occasional coarse crackle. Good air entry bilaterally Heart sounds are unremarkable for any murmur rub gallop Abdomen soft nontender. No masses felt No renal angle tenderness Extremity exam reveals no edema Neurologically awake alert oriented - Labs CBC & Chem 7: 07/05/20 05:57 01/31/20 05:57 Labs: Abnormal Lab Results - Last 24 Hours (Table) 01/30/20 01/30/20 01/30/20 Range/Units 11:11 16:58 20:19 WBC (3.8-10.6) k/uL Neutrophils # (1.3-7.7) k/uL BUN (7-17) mg/dL Creatinine (0.52-1.04) mg/dL POC Glucose (mg/dL) 124 H 164 H 120 H (75-99) mg/dL Urine Blood (Negative) Urine RBC (0-5) /hpf Urine Bacteria (None) /hpf Urine Mucus (None) /hpf 01/30/20 01/31/20 01/31/20 Range/Units 23:10 05:57 05:57 WBC 16.2 H (3.8-10.6) k/uL Neutrophils # 14.1 H (1.3-7.7) k/uL BUN 62 H (7-17) mg/dL Creatinine 1.76 H (0.52-1.04) mg/dL POC Glucose (mg/dL) (75-99) mg/dL Urine Blood Small H (Negative) Urine RBC 16 H (0-5) /hpf Urine Bacteria Rare H (None) /hpf Urine Mucus Rare H (None) /hpf 01/31/20 01/31/20 Range/Units 06:59 11:08 WBC (3.8-10.6) k/uL Neutrophils # (1.3-7.7) k/uL BUN (7-17) mg/dL Creatinine (0.52-1.04) mg/dL POC Glucose (mg/dL) 112 H 140 H (75-99) mg/dL Urine Blood (Negative) Urine RBC (0-5) /hpf Urine Bacteria (None) /hpf Urine Mucus (None) /hpf Microbiology - Last 24 Hours (Table) 01/26/20 12:00 Gram Stain - Final Pleural Fluid Body Fluid Culture - Final Assessment and Plan Assessment: Impression 1. Acute kidney injury secondary to combination of hydronephrosis of the left solitary kidney, pneumonia and volume depletion. Ultrasound demonstrated mild hydronephrosis is of the solitary left kidney, computed tomography scan confirmed it. Urology was consulted but family is refusing ureteral stent that was recommended and the procedure was canceled this morning. Creatinine is 1.81, 1.63 and 1.76 for the last 3 days 2. Mild hydronephrosis solitary left kidney, etiology no masses noted on CAT scan 2. 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 Chronic kidney disease with creatinine of 1.13 dated 01/19/2020, creatinine was 0.8 on 10/01/2019. Urinalysis on 01/20/2020, protein is negative RBCs 5 WBCs 9. 3. Hypokalemia secondary to GI losses from diarrhea and diuretics. Replaced potassium and resolved potassium is 3.6 4. Diarrhea with C. diff negative dated 01/24/2020 6. Pneumonia, with negative COVID- 19 status. 7. Diverticulosis based on CAT scan Recommendation 1. Continue gentle hydration at 50 mL of normal saline per hour . 2. Urology waiting for family is clearance to go ahead with the stent 3. Monitor urine output blood pressure orthostatic changes and labs
--- NOTE | 2020-01-31 16:07 | PN ---
PROGRESS NOTE DATE OF SERVICE: 01/31/2020 This 85-year-old woman was admitted initially with CHF, possible aspiration pneumonia subsequently. The patient had dilated esophagus. The patient also had renal failure. Patient also had right hydronephrosis. Patient had kidney donation previously. The patient might require a stent according to the Urology. The patient being closely monitored. Patient has been seen by multiple consultants. Past medical history reviewed. REVIEW OF SYSTEMS: Cardiovascular: No angina. Respiration as mentioned earlier. GI as mentioned. : No dysuria. NERVOUS SYSTEM: No numbness or weakness. CURRENT MEDICATIONS: Reviewed and include: 1. Tylenol p.r.n. 2. Comins 5 mg q.i.d. p.r.n. 3. Maalox. 4. DuoNeb q.i.d. and p.r.n. 5. Heparin. 6. Lopressor. 7. Replacement protocols. 8. Zofran. 9. Protonix. 10.Zosyn IV. 11.[place] thyroid. PHYSICAL EXAM: Patient is alert and oriented times three. Pulse 91, blood pressure is 135/87, respirations 17, temperature 98.7, pulse ox 94% on 3 L. HEENT: Conjunctivae normal. NECK: No JVD. CARDIOVASCULAR: S1, S2 muffled. RESPIRATORY: Breath sounds diminished in the bases. A few scattered rhonchi. ABDOMEN: Soft, nontender. No mass. LEGS no edema. No swelling. NERVOUS SYSTEM: No focal deficits. LABS: At this time shows WBC 16.2, sodium 139, potassium 3.2 creatinine is 1.76. ASSESSMENT: 1. Shortness of breath possibly secondary to pulmonary edema, pleural effusion, congestive heart failure, acute exacerbation, acute on chronic diastolic dysfunction, ejection fraction 55 to 60%, present on admission. 2. Bilateral aspiration pneumonia, possibly. 3. Thickened folds and as well as nodularity of the mucosa involving the fundus and cardia of the stomach with diffuse gastritis status post biopsy, rule out malignancy. Final report pending. 4. Fluid-filled esophagus on the CT scan. 5. Right hydronephrosis and rule out obstructive uropathy. 6. Acute on chronic renal failure with acute tubular necrosis, possibly renal failure. 7. Chronic intermittent bronchial asthma. 8. Mild to moderate tricuspid regurgitation, mild to moderate pulmonary hypertension and mild generalized pericardial effusion. 9. Increased creatinine. 10.History of asthma. 11.Hypothyroidism. 12.History of polymyalgia rheumatica. 13.History of chronic obstructive pulmonary disease. 14.History of tonsillectomy. 15.History of kidney donation. 16.Hypokalemia. 17.CT scan showing bilateral pleural effusion, increased WBC. 18.Possible mild acute urinary tract infection present on admission. 19.FULL CODE. RECOMMENDATIONS AND DISCUSSION: Recommend to continue current medications, symptomatic treatment. I would continue with broad-spectrum antibiotics. Monitor creatinine closely. The patient might need referral to a tertiary care center because of the complexity of the medical conditions as described above and the possible need of stent to alleviate renal failure. Once again, the prognosis guarded because of multiple complex medical issues. Discussed with the patient's family. Further recommendations to follow. See orders for details. MMODL / IJN: [id number] /
[2020-01-31] MEDS: SODIUM CHLORIDE 0.9% 1,000 ML IV SCH (16:10)
[2020-01-31 17:15] LABS: Glucose,Whole Blood 153 mg/dL (75-99)
[2020-01-31 20:55] LABS: Glucose,Whole Blood 91 mg/dL (75-99)
--- NOTE | 2020-01-31 21:43 | XR ---
EXAMINATION TYPE: XR chest 1V portable DATE OF EXAM: 01/31/2020 COMPARISON: 01/30/2020 HISTORY: Short of breath TECHNIQUE: Single view FINDINGS: There is pulmonary edema. There is blunting of the costophrenic angles. Thoracic aorta is a theromatous. There is some airspace infiltrate at both lung bases. IMPRESSION: Pulmonary edema and pleural effusions consistent with congestive heart failure slightly w orse than exam yesterday.
[2020-01-31] MEDS ORDERED: FUROSEMIDE 10 MG/ML 4 ML VIAL IV STA ×2 (22:32→23:57)
[2020-01-31] MEDS: methylPREDNISolone SOD SUCCI 125 MG/2 ML VIAL IV SCH (22:41)
[2020-01-31 23:16] LABS: ABG Base Excess 2.1 mmol/L; ABG HCO3 28 mmol/L (21-25); ABG Oxygen Saturation 96.4 % (94-97); ABG PCO2 52 mmHg (35-45); ABG PH 7.34 (7.35-7.45); ABG PO2 85 mmHg (83-108); ABG TCO2 30 mmol/L (19-24); Allen Test Performed? Yes
[2020-02-01] MEDS: ALPRAZolam 0.25 MG TAB PO PRN ×3 (01:33→22:07)
[2020-02-01] MEDS: methylPREDNISolone SOD SUCCI 125 MG/2 ML VIAL IV SCH ×4 (04:28→22:10)
[2020-02-01] MEDS: SODIUM CHLORIDE 0.9% 1,000 ML IV SCH (04:31)
[2020-02-01 07:28] LABS: Glucose,Whole Blood 117 mg/dL (75-99)
[2020-02-01 07:30] LABS: Basophils % (A) 0 %; Eosinophils % (A) 0 %; HGB 13.5 gm/dL (11.4-16.0); Lymphocytes # (A) 0.6 k/uL (1.0-4.8); Lymphocytes % (A) 4 %; MCH 30.7 pg (25.0-35.0); MCHC 32.3 g/dL (31.0-37.0); MCV 95.2 fL (80.0-100.0); Mean Platelet Volume 8.6; Monocytes # (A) 0.1 k/uL (0-1.0); Monocytes % (A) 1 %; Neutrophils # (A) 14.5 k/uL (1.3-7.7); Neutrophils % (A) 95 %; Platelet Count 165 k/uL (150-450); RBC 4.41 m/uL (3.80-5.40); RDW 12.6 % (11.5-15.5); WBC 15.3 k/uL (3.8-10.6)
[2020-02-01] MEDS: INSULIN ASPART (NovoLOG) 100 UNIT/ML VIAL SQ SCH ×4 (07:43→21:56)
--- NOTE | 2020-02-01 07:43 | DS ---
DISCHARGE SUMMARY FINAL DIAGNOSIS: 1. Shortness of breath possibly secondary to pulmonary edema and pleural effusion, congestive heart failure acute exacerbation with acute on chronic diastolic dysfunction with ejection fraction of 50 to 60% present on admission. 2. Bilateral aspiration pneumonia. 3. Thickened folds and nodularity of the mucosa involving the fundus, lower part of the esophagus, as well as cardia of the stomach and diffuse gastritis, status post biopsy. Final report pending. 4. Fluid-filled esophagus on the CT scan. 5. Left pleural effusion status post thoracocentesis. 6. Acute on chronic renal failure possible postobstructive renal failure and acute tubular necrosis. 7. Left-sided hydronephrosis in a solitary kidney. 8. Chronic intermittent bronchial asthma. 9. Mild to moderate tricuspid regurgitation, mild to moderate pulmonary hypertension and generalized pericardial effusion. 10.Increased creatinine. 11.History of asthma. 12.Hypothyroidism. 13.History of polymyalgia rheumatica. 14.History of chronic obstructive pulmonary disease. 15.History of tonsillectomy. 16.History of kidney donation. 17.Hypokalemia. 18.CT scan of the chest showing bilateral pleural effusions. 19.Increased WBC. 20.Possibly mild acute urinary tract infection present on admission. 21.FULL CODE. DISCHARGE DISPOSITION: The patient will be discharged in stable condition with a guarded prognosis. The patient will be transferred to [facility] for further evaluation. Total time taken 35 minutes. The patient is currently stable at this time. HISTORY OF PRESENT ILLNESS: This 85-year-old woman with a past medical history of multiple medical problems was admitted initially with features of CHF. Subsequently, the patient developed aspiration pneumonia. Fluid-filled esophagus was determined in the CT scan. The patient had EGD that showed abnormal force in the upper esophagus. Biopsies are pending at this time. Meanwhile, the patient also developed renal failure. Creatinine worsened to 1.76. Evaluation showed hydronephrosis of the left kidney which is a solitary kidney. The patient was being treated with IV antibiotics and other measures including on and off diuretics. Because of non-improvement of the above-mentioned condition, I discussed case with [facility] for transferred to tertiary care center for further evaluation and treatment and the patient will be transferred in stable condition with guarded prognosis. The overall prognosis remained extremely guarded throughout hospitalization. Please refer to the multiple financial analysis consultant's notes and progress notes for further details. The patient has seen multiple consultants including Nephrology, Urology, who recommended stent placement at this time, as well as Pulmonology and Gastroenterology as well as mentioned earlier. The biopsy reports of the procedure and the surgical specimens after the EGD are pending at this time. Cytology from the pleural fluid also pending. Please refer to the medication record to see list of current medications. MMODL / IJN: [id number] /
[2020-02-01 08:01] LABS: Potassium 3.7 mmol/L (3.5-5.1)
[2020-02-01] MEDS: PIPERACILLIN-TAZOBACTAM 3.375 GM in SODIUM CHLORIDE 0.9% 100 ML IVPB SCH ×2 (08:05→20:14)
[2020-02-01] MEDS: HEPARIN SODIUM,PORCINE 5,000 UNIT/ML 1 ML VIAL SQ SCH ×2 (08:05→20:18)
[2020-02-01] MEDS: THYROID, PORK 30 MG TAB PO SCH (08:05)
[2020-02-01] MEDS: PANTOPRAZOLE 40 MG TABLET PO SCH ×2 (08:05→20:17)
[2020-02-01] MEDS: METOPROLOL TARTRATE 25 MG TAB PO SCH ×2 (08:05→20:17)
[2020-02-01] MEDS: IPRATROPIUM-ALBUTEROL 3 ML NEB INHALATION SCH ×4 (08:12→20:35)
--- NOTE | 2020-02-01 08:28 | P.PN ---
Subjective Progress Note Date: 02/01/20 The patient was seen yesterday because of left-sided hydronephrosis and a solitary renal unit. She donated her right kidney for transplantation some 25 years ago. She is totally asymptomatic. The computed tomography scan done on 2019 identifies left hydroureteronephrosis into the distal ureteral region. She has a lot of phleboliths so it difficult to say whetherOne of them is a ureteral stone. I suspect that is the case. She does have some microscopic hematuria. She has never had a kidney stone. The family declined Placement of the stent by yesterday.Apparently the daughter spoke with her nurse this morning and still did not wish anything to be done urologically here. They prefer that it to be done at the [facility]. We are available to assist as indicated. Please contact us if the family wishes this to be done here. She would need cystoscopy left retrograde pyelogram stent placement and my guess is a stone manipulation. Objective - Vital Signs Vital signs: Vital Signs Temp 98.8 F 02/01/20 04:39 Pulse 88 02/01/20 08:24 Resp 25 H 02/01/20 04:39 BP 138/84 02/01/20 04:39 Pulse Ox 95 02/01/20 04:39 Intake & Output 01/31/20 02/01/20 02/01/20 18:59 06:59 18:59 Intake Total 640 210 Output Total 850 Balance 640 -640 Intake: Intake, IV Titration 400 210 Amount Sodium Chloride 0.9% 1, 400 210 000 ml @ 20 mls/hr IV . Q24H [facility] Rx#:[id number] Oral 240 Output: Urine 850 Other: Voiding Method Bedside Commode Indwelling Catheter - Labs CBC & Chem 7: 02/01/20 06:02 02/01/20 06:02 Labs: Abnormal Lab Results - Last 24 Hours (Table) 01/31/20 01/31/20 01/31/20 Range/Units 11:08 17:14 23:12 WBC (3.8-10.6) k/uL Neutrophils # (1.3-7.7) k/uL Lymphocytes # (1.0-4.8) k/uL ABG pH 7.34 L (7.35-7.45) ABG pCO2 52 H (35-45) mmHg ABG HCO3 28 H (21-25) mmol/L ABG Total CO2 30 H (19-24) mmol/L BUN (7-17) mg/dL Creatinine (0.52-1.04) mg/dL Glucose (74-99) mg/dL POC Glucose (mg/dL) 140 H 153 H (75-99) mg/dL 02/01/20 02/01/20 02/01/20 Range/Units 06:02 06:02 07:25 WBC 15.3 H (3.8-10.6) k/uL Neutrophils # 14.5 H (1.3-7.7) k/uL Lymphocytes # 0.6 L (1.0-4.8) k/uL ABG pH (7.35-7.45) ABG pCO2 (35-45) mmHg ABG HCO3 (21-25) mmol/L ABG Total CO2 (19-24) mmol/L BUN 66 H (7-17) mg/dL Creatinine 1.70 H (0.52-1.04) mg/dL Glucose 108 H (74-99) mg/dL POC Glucose (mg/dL) 117 H (75-99) mg/dL
--- NOTE | 2020-02-01 10:46 | XR ---
EXAMINATION TYPE: XR chest 1V portable DATE OF EXAM: 02/01/2020 COMPARISON: 01/31/2020 HISTORY: Shortness of breath FINDINGS: There are bilateral pleural effusions with cardiomegaly and bibasilar infiltrate. There is a diffuse interstitial pattern. Arthropathy of the shoulders with diffuse osteopenia. Biapical pleural thicken ing. IMPRESSION: 1. Correlate for CHF.
[2020-02-01 12:25] LABS: Glucose,Whole Blood 172 mg/dL (75-99)
--- NOTE | 2020-02-01 12:25 | CDI ---
Documentation Clarification Form Date: 02/01/2020 12:11:24 PM From: Little NolascoEspinozaRICHARD jessica, CCDS Admit Date: 01/21/2020 02:18:00 PM Patient Name: Elizabeth Cannon Visit Number: [id number] Discharge Date: ATTENTION: The Clinical Documentation Specialists (CDI) and [facility] Coding Staff appreciate your assistance in clarifying documentation. Please respond to the clarification below the line at the bottom and electronically sign. The CDI & [facility] Coding staff will review the response and follow-up if needed. Please note: Queries are made part of the Legal Health Record. If you have any questions, please contact the author of this message via ITS. Dr. Rima Voss: Per the Nephrology Progress Notes dated 01/28, 01/29 01/30: "Chronic kidney disease with creatinine of 1.13 dated 01/19/2020, creatinine was 0.8 on 10/01/2019." History/Risk Factors: Solitary kidney status post kidney donation to the patient's son 25 years ago, Asthma, Hypothyroidism, Polymyalgia Rheumatica. Clinical Indicators: 84 yo female, presented to the ED on 01/18 with SOB, mild swelling in her right foot, tachycardic. Admitted with acute on chronic diastolic CHF. Historical Labs: GFR 02/05/2017: 53. BUN: n/a. Creatinine: 0.8 10/01/2019 (per Nephrology Consult.) LAB: BUN 01/18: 44. 7/2: 73. 7/6: 66 Creatinine 01/18: 1.13. 7/2: 1.74. 7/: 1.70 GFR 01/18: 45. 7/2: 27. 7/6: 27 Treatment: IV Lasix, ECHO, limited fluid intake, Cardiology & Pulmonary consults. GI consulted 01/20 for incidental finding of dilated fluid filled esophagus. Nephrology consulted 01/28 for MAYRA. 01/30 Urology consulted for Left hydronephrosis. In order to capture the severity of condition, please clarify the stage of the CKD, if known: CKD Stage 2 (GFR 60-89) CKD Stage 3 (GFR 30-59) CKD Stage 4 (GFR 15-29) Other, please specify CKD III Unable to determine MTDD
--- NOTE | 2020-02-01 16:10 | PN ---
PROGRESS NOTE Patient is seen for followup for acute kidney injury which appears to be obstructive in nature. Renal function is stable with creatinine staying at 1.7 mg/dL. Patient has been advised cystoscopy and stent placement, and it appears that family would like to have it performed at [facility]. PHYSICAL EXAMINATION: On examination today, blood pressure was 118/71, heart rate 84 per minute. Patient is afebrile. EXAMINATION OF THE HEART: S1 and S2. EXAMINATION OF LUNGS: Decreased breath sounds at bases. ABDOMEN: Soft, non-tender. Examination of lower extremities shows no significant edema. LABS: Labs show sodium 140, potassium 3.7, chloride 104, BUN 66, creatinine 1.7, hemoglobin 13.5 g/dL. ASSESSMENT: 1. Acute kidney injury; combination of hydronephrosis and solitary kidney as well as volume depletion and pneumonia, maintained on IV fluids and antibiotics. Cystoscopy and stent placement to be performed at [facility] as per family. Urology has evaluated the patient and they are agreeable to take her for procedure. However, family wishes to have it done at [facility]. 2. Solitary kidney, status post kidney donation 25 years ago. 3. Chronic kidney disease with baseline creatinine 1.1 to 0.8 mg/dL. No proteinuria. Stage 2. 4. Hypokalemia from gastrointestinal fluid losses from diarrhea and diuretics as well. 5. Diarrhea with Clostridium difficile toxin negative. 6. Pneumonia with negative COVID-19. PLAN: Continue with gentle IV hydration for now. No nephrotoxic agents on board. Monitor urine output. MMODL / IJN: [id number] /
[2020-02-01 17:02] LABS: Glucose,Whole Blood 188 mg/dL (75-99)
--- NOTE | 2020-02-01 17:16 | PN ---
PROGRESS NOTE DATE OF SERVICE: 02/01/2020. This is an 85-year-old woman being for Dr. Tio Ralph in the outpatient setting. The patient was initially admitted with pulmonary edema. Subsequently, the patient had aspiration pneumonia and acute hypoxic respiratory failure. Patient also had thickened in the esophagus, biopsies pending at this time. Patient also had obstructive uropathy and hydronephrosis. Patient will be transferred to [facility] for higher level of care to a tertiary care center because of multiple complex abnormalities and possible need for a stent in the solitary unilateral kidney. Currently, the patient had acute hypoxic respiratory patient on BiPAP at IPAP at 10 and EPAP at 5 and 40% FiO2, saturating around 93%. The patient is currently stable but: however, the patient's chest x-ray showed significant bilateral pleural effusions and features of CHF. Because of multiple complex medical issues and because of the use of BiPAP, the patient will be transferred to [facility] ICU at this time. I would recommend air lifting the patient because of the multiple complex life- threatening issues the patient is having at this time. But; however, the patient is safe for transfer and discussed with the family on multiple occasions. The family understands and agrees. Please refer to my previous dictation for list of diagnosis and list of medications. MMODL / IJN: [id number] /
[2020-02-01 21:42] LABS: Glucose,Whole Blood 155 mg/dL (75-99)
[2020-02-01] MEDS ORDERED: methylPREDNISolone SOD SUCCI 125 MG/2 ML VIAL IV SCH (23:00)
[2020-02-02 00:17] VITALS: BP 147/82; PULSE 98; RESP 22; TEMP 96.8
--- NOTE | 2020-02-04 00:57 | CDI ---
Documentation Clarification Form Date: 02/04/2020 From: Ted Fabian Phone: If you have a question about this query, please contact Louise Sim Didactic Instructor at [phone] between 8am and 5pm. Admit Date: 01/21/2020 Discharge Date: 02/02/2020 Patient Name: Elizabeth Cannon Visit Number: [id number] ATTENTION: The Clinical Documentation Specialists (CDI) and [facility] Coding Staff appreciate your assistance in clarifying documentation. Please respond to the clarification below the line at the bottom and electronically sign. The CDI & [facility] Coding staff will review the response and follow-up if needed. Please note: Queries are made part of the Legal Health Record. If you have any questions, please contact the author of this message via ITS. Dear Ganesh Smith., The final diagnosis of the pathology report states: . 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 Documentation states:Thickened folds and nodularity of the mucosa involving the fundus, lower part of the esophagus, as well as cardia of the stomach and diffuse gastritis, Patient history/risk factors: CHF, Aspiration pneumonia Treatment: EGD with Biopsy In your professional opinion, do you agree with the pathology report specifying Gastric Antrum biopsy as Adenocarcinoma? Yes No Other (please specify) Unable to determine Yes MTDD
== END 2020-02-02 00:11 | disposition short-term general hospital (02) | DRG 291 ==
LOC: EC 15:44 → 3SCARD 17:47 → OBSVTOIN 01-21 14:18 → 5NMEDONC 01-24 02:56
PROVIDERS: ADMIT Hospitalist; ATTEND Hospitalist
PROC: 0DB78ZX Excision of Stomach, Pylorus, Via Natural or Artificial Opening Endoscopic, Diagnostic (ICD-10-PCS; principal; 2020-01-23 07:15)
PROC: 0W9B3ZZ Drainage of Left Pleural Cavity, Percutaneous Approach (ICD-10-PCS; 2020-01-26)
PROC: 5A09357 Assistance with Respiratory Ventilation, Less than 24 Consecutive Hours, Continuous Positive Airway Pressure (ICD-10-PCS; 2020-01-31)
DX: I13.0 Hypertensive heart and chronic kidney disease with heart failure and stage 1 through stage 4 chronic kidney disease, or unspecified chronic kidney disease (principal); N17.0 Acute kidney failure with tubular necrosis; I50.33 Acute on chronic diastolic (congestive) heart failure; J96.01 Acute respiratory failure with hypoxia; J69.0 Pneumonitis due to inhalation of food and vomit; J45.901 Unspecified asthma with (acute) exacerbation; I31.3 Pericardial effusion (noninflammatory); N39.0 Urinary tract infection, site not specified; N13.2 Hydronephrosis with renal and ureteral calculous obstruction; C16.3 Malignant neoplasm of pyloric antrum; E03.9 Hypothyroidism, unspecified; Z20.828 Contact with and (suspected) exposure to other viral communicable diseases; I27.20 Pulmonary hypertension, unspecified; I07.1 Rheumatic tricuspid insufficiency; E87.6 Hypokalemia; M35.3 Polymyalgia rheumatica; K22.8 Other specified diseases of esophagus; E86.9 Volume depletion, unspecified; J44.9 Chronic obstructive pulmonary disease, unspecified; K20.9 Esophagitis, unspecified; K29.70 Gastritis, unspecified, without bleeding; K57.90 Diverticulosis of intestine, part unspecified, without perforation or abscess without bleeding; N18.9 Chronic kidney disease, unspecified; Z79.52 Long term (current) use of systemic steroids; Z52.4 Kidney donor; Z79.899 Other long term (current) drug therapy; Z90.89 Acquired absence of other organs; Z82.49 Family history of ischemic heart disease and other diseases of the circulatory system
CPT/HCPCS: 36415; 36600; 43239; 71045; 71046; 71250; 74150; 76604; 76770; 80048; 80053; 81001; 82805; 82945; 83605; 83615; 83735; 83880; 84132; 84145; 84157; 84484; 85025; 85610; 85730; 87040; 87070; 87102; 87116; 87205; 87206; 87324; 88108; 88305; 88341; 88342; 89050; 93005; 93306; 94640; 94660; 94760; 96365; 96366; 96367; 96375; 99285

== ENCOUNTER → 2020-01-19 | Outpatient (CLI) | payer MEDICARE ==
--- NOTE | 2020-01-19 15:26 | XR ---
EXAMINATION TYPE: XR chest 2V DATE OF EXAM: 01/19/2020 COMPARISON: NONE TECHNIQUE: PA and lateral views submitted. HISTORY: COPD, shortness of breath FINDINGS: Degenerative changes spine. Vascular calcifications. Diffuse interstitial pattern with bilateral cons olidation small effusion. Diffuse osteopenia. Arthropathy of the shoulders. No pneumothorax. IMPRESSION: 1. COPD correlate for CHF. Underlying pneumonia not excluded.
== END | disposition home or self-care (01) ==
LOC: RADXRMAIN 14:04
PROVIDERS: ATTEND Family Medicine
DX: J44.9 Chronic obstructive pulmonary disease, unspecified (principal); I50.9 Heart failure, unspecified
CPT/HCPCS: 71046